=== PATIENT | male | born 1965 | race Two or more races ===

== ENCOUNTER 2022-06-14 09:06 | Emergency (ER) | payer SELFPAY ==
[2022-06-14 09:09] VITALS: BP 158/75; PULSE 69; RESP 18; TEMP 36; O2SAT 98; BMI 27.3
--- NOTE | 2022-06-14 09:24 | CRLHL7_ITS ---
For Patients: As a result of the 21st Century Cures Act, medical imaging exams and procedure reports are released immediately into your electronic medical record. You may view this report before your referring provider. If you have questions, please contact your health care provider. Indication: Right lower quadrant abdominal pain that radiates of the right side for 2 days, nausea and groin Pain Technique: Volumetric multidetector CT images of the abdomen and pelvis were obtained after the administration of intravenous contrast. 93 cc Isovue 370 low osmolar intravenous contrast Comparison: None available. Findings: The lung bases are clear. The liver is enlarged with moderate hepatic steatosis and hepatomegaly. The portal vein is patent. The gallbladder is unremarkable without evidence of radiopaque calculus. There is no significant common biliary ductal dilatation or abrupt cut off. The spleen is normal in enhancement and size. There is moderate thickening of the gastric antrum thickening of the gastric rugal folds. The pancreas is normal in enhancement without significant atrophy. The adrenal glands are unremarkable. The kidneys demonstrate preserved corticomedullary differentiation without evidence of obstructive uropathy. There is moderate stool seen throughout the colon with distal colonic diverticulosis without definite evidence of diverticulitis. Minimal nonspecific fluid is seen within the central small bowel which may be physiologic. Mild enteritis is not excluded. The appendix is unremarkable. There is no significant mesenteric, retroperitoneal, or pelvic sidewall lymph nodes. The aorta is nonaneurysmal. There is no significant atherosclerotic disease appreciated. There are small bilateral hydroceles appreciated within the testicles. The inguinal soft tissues are otherwise grossly within normal limits. There is no free fluid or free air. The anterior abdominal wall is intact without significant hernias. The lumbar vertebral body heights are grossly maintained with minimal endplate Schmorl`s defects. There is mild degenerative disc disease and facet arthrosis. Impression: Normal appendix. Grossly unremarkable right groin. Demonstration of small bilateral hydroceles within the scrotum. Moderate hepatomegaly and hepatic steatosis. [id number] chronic gastritis change. Minimal nonspecific fluid seen within the central small bowel which may represent physiologic changes; however, enteritis is difficult to exclude. Otherwise, no acute intra-abdominal abnormalities are appreciated. Please note that all CT scans at this facility use dose modulation, iterative reconstruction, and/or weight-based dosing when appropriate to reduce radiation dose to as low as reasonably achievable. Dictated by Isaac Weiss MD @ 06/14/2022 10:58:01 AM (Electronically Signed)
--- NOTE | 2022-06-14 09:26 | ED.ABDPAIN ---
HPI - Abdominal Pain General Chief Complaint: Abdominal Pain Stated Complaint: R Abdominal Pain Time Seen by Provider: 06/14/22 09:14 History of Present Illness HPI narrative: Pt is a 56 year old gentleman seen with the assistance of the Bulgarian interpretor who presents with 3 day of right sided abd pain. He has had no nausea or vomiting. No fever or chills. Pt pain has been severe and fairly constant. Pt has had no fever or chills. Pt states that all of the bumps driving in today were painful. Pt has no similar symptoms previously. Pt has otherwise been in good health. Related Data Home Medications Medication Instructions Recorded Confirmed No Known Home Medications 06/14/22 06/14/22 Allergies Allergy/AdvReac Type Severity Reaction Status Date / Time No Known Drug Allergies Allergy Verified 06/14/22 10:23 Review of Systems Status of ROS Reports: 10 or more systems reviewed and unremarkable except as noted in History and below PFSH PFSH Social History Smoking Status: Former smoker How often do you have a drink containing alcohol: never AUDIT-C Alcohol total score: 0 Non-prescribed substance use: denies use Exam Narrative: Exam Narrative: EXAM GENERAL: Patient appears comfortable. EYES: No scleral icterus. THYROID: no thyroid nodules or thyromegaly. LYMPH: No supraclavicular or cervical lymphadenopathy. SKIN: Visible skin seen during exam normal or with benign process only. EXT: No dependent lower extremity pedal edema. HEART: Regular rate and rhythm with no murmurs, rubs, or gallops. LUNGS: Clear to auscultation bilaterally with no crackles or wheezes. ABD: Diffusely tender with guarding in the r side of his abd with hypoactive bowel sounds Brief testicular exam normal. PSYCH: Good eye contact, speech is not pressured. Const: Vital Signs, click to edit/add: Vital Signs - 24 hr 06/14/22 09:09 06/14/22 10:30 Temperature 96.8 F L Pulse Rate [Right Pulse Oximeter] 69 61 Respiratory Rate 18 16 Blood Pressure [Ri ght Upper Arm] 158/75 H 140/86 H Pulse Oximetry 98 98 Oxygen Delivery Me thod Room Air Course Course Hospital Course: Pt seen and examined. CT of abd and pelvis, cbc, cmp, ua, amylase ordered Reevaluation(s) Reevaluation #1: Pt labs are unremarkable with the exception of a glucose of 299, AST of 37, ALT of 51. Amylase is 92. CT shows no acute findings other than possible enteritis with chronic steatosis of the liver and gastritis. Possible hydroceles noted. US of scrotum ordered. Time: 11:28 Reevaluation #2: US of scrotum shows no acute scrotal pathology. Chronic appearing hydroceles noted. Time: 13:55 Vital Signs Vital signs: Initial Vital Signs Temperature 96.8 F L 06/14/22 09:09 Temperature Source Temporal Artery Scan 06/14/22 09:09 Pulse Rate 69 06/14/22 09:09 Respiratory Rate 18 06/14/22 09:09 Blood Pressure 158/75 H 06/14/22 09:09 Blood Pressure Mean 102 06/14/22 09:09 Blood Pressure Position Sitting 06/14/22 09:09 Pulse Oximetry 98 06/14/22 09:09 Oxygen Delivery Method 06/14/22 09:09 Vital Signs Temperature 96.8 F L 06/14/22 09:09 Pulse Rate 69 06/14/22 09:09 Respiratory Rate 18 06/14/22 09:09 Blood Pressure 158/75 H 06/14/22 09:09 Pulse Oximetry 98 06/14/22 09:09 Oxygen Delivery Method 06/14/22 09:09 Temperature 96.8 F L 06/14/22 09:09 Pulse Rate 61 06/14/22 10:30 Respiratory Rate 16 06/14/22 10:30 Blood Pressure 140/86 H 06/14/22 10:30 Pulse Oximetry 98 06/14/22 10:30 Oxygen Delivery Method 06/14/22 09:09 MDM - Abdominal Pain MDM Narrative Medical decision making narrative: Pt is a 56 year old who comes in with abd pain. Pt seen with the aid of the Bulgarian interpretor. Pt's CT upon my review shows findings consistent with enteritis as well as chronic appearing hydroceles. Pt then had us of the scrotum. No acute findings. Chronic appearing hydroceles again noted. Labs reassuring. Will treat as viral syndrome with rest, fluids, tylenol and motrin. Follow up with PCP as needed. Differential Diagnosis Differential diagnosis: Likely abdominal pain, acute appendicitis, calculus of kidney, constipation, diverticulitis, gastroenteritis, pancreatitis and small bowel obstruction Lab Data Labs: Lab Results 06/14/22 06/14/22 06/14/22 Range/Units 09:28 09:50 09:50 WBC 5.53 (4.50-11.00) K/uL RBC 5.29 (4.30-5.90) m/uL Hgb 15.9 (13.5-17.5) gm/dL Hct 45.7 (37.0-53.0) % MCV 86 (80-100) fL MCH 30 (26-34) pg MCHC 35 (32-36) gm/dL RDW Coeff of Yomi 12.7 (11.5-15.5) % Plt Count 194 (140-440) K/uL Neut % (Auto) 54.5 (42.0-72.0) % Lymph % (Auto) 34.5 (20-44) % Eaton % (Auto) 6.1 (0.0-11.0) % Eos % (Auto) 4.5 (0.0-7.0) % Baso % (Auto) 0.2 (0.0-3.0) % Neut # (Auto) 3.01 (1.7-7.0) K/uL Lymph # (Auto) 1.91 (0.90-2.90) K/uL Eaton # (Auto) 0.30 (0.00-0.90) K/UL Eos # (Auto) 0.25 (0.00-0.50) K/uL Baso # (Auto) 0.01 (0.00-0.30) K/uL Sodium 135 (135-149) mmol/L Potassium 4.1 (3.6-5.1) mmol/L Chloride 105 (96-114) mmol/L Carbon Dioxide 21 (20-32) mmol/L BUN 17 (7-30) mg/dL Creatinine 0.6 (0.5-1.5) mg/dL Estimated Creat Clear 141.94 Estimated GFR 113 ml/min Glucose 299 H (60-115) mg/dL Calcium 8.7 (8.4-10.6) mg/dL Total Bilirubin 0.6 (0.1-1.5) mg/dL AST 37 H (12-35) U/L ALT 51 H (4-50) U/L Alkaline Phosphatase 120 (40-150) U/L Total Protein 7.3 (6.0-8.3) g/dL Albumin 4.4 (3.3-5.0) g/dL Amylase 92 H (18-89) U/L Urine Color Yellow (Yellow) Urine Appearance Clear (Clear) Urine pH 7.0 (5.0-8.5) Ur Specific Wilbur 1.020 (1.000-1.030) Urine Protein Negative (Negative) Urine Glucose (UA) 2+ A (Negative) Urine Ketones Negative (Negative) Urine Blood Negative (Negative) Urine Nitrite Negative (Negative) Urine Bilirubin Negative (Negative) Urine Urobilinogen 0.2 (0.2-1.0) Ur Leukocyte Esterase Negative (Negative) SARS-CoV-2 (PCR) (Negative) 06/14/22 Range/Units 10:44 WBC (4.50-11.00) K/uL RBC (4.30-5.90) m/uL Hgb (13.5-17.5) gm/dL Hct (37.0-53.0) % MCV (80-100) fL MCH (26-34) pg MCHC (32-36) gm/dL RDW Coeff of Yomi (11.5-15.5) % Plt Count (140-440) K/uL Neut % (Auto) (42.0-72.0) % Lymph % (Auto) (20-44) % Eaton % (Auto) (0.0-11.0) % Eos % (Auto) (0.0-7.0) % Baso % (Auto) (0.0-3.0) % Neut # (Auto) (1.7-7.0) K/uL Lymph # (Auto) (0.90-2.90) K/uL Eaton # (Auto) (0.00-0.90) K/UL Eos # (Auto) (0.00-0.50) K/uL Baso # (Auto) (0.00-0.30) K/uL Sodium (135-149) mmol/L Potassium (3.6-5.1) mmol/L Chloride (96-114) mmol/L Carbon Dioxide (20-32) mmol/L BUN (7-30) mg/dL Creatinine (0.5-1.5) mg/dL Estimated Creat Clear Estimated GFR ml/min Glucose (60-115) mg/dL Calcium (8.4-10.6) mg/dL Total Bilirubin (0.1-1.5) mg/dL AST (12-35) U/L ALT (4-50) U/L Alkaline Phosphatase (40-150) U/L Total Protein (6.0-8.3) g/dL Albumin (3.3-5.0) g/dL Amylase (18-89) U/L Urine Color (Yellow) Urine Appearance (Clear) Urine pH (5.0-8.5) Ur Specific Wilbur (1.000-1.030) Urine Protein (Negative) Urine Glucose (UA) (Negative) Urine Ketones (Negative) Urine Blood (Negative) Urine Nitrite (Negative) Urine Bilirubin (Negative) Urine Urobilinogen (0.2-1.0) Ur Leukocyte Esterase (Negative) SARS-CoV-2 (PCR) Negative SARS-CoV-2 (Negative) Discharge Plan Discharge Clinical Impression: Enteritis Condition: Stable Instructions: Enteritis (ED) Prescriptions: No Action No Known Home Medications Follow Up/Referrals: Provider,Not a Local [Primary Care Provider] - Stand Alone Forms: [facility] Info Instructions
[2022-06-14 09:40] LABS: Appearance Urine Clear (Clear); Bilirubin Urine Negative (Negative); Blood Urine Negative (Negative); Color Urine Yellow (Yellow); Glucose Urine 2+ (Negative); Ketones Urine Negative (Negative); Leukocyte Esterase Urine Negative (Negative); Nitrite Urine Negative (Negative); Protein Urine Negative (Negative); Urobilinogen Urine 0.2 (0.2-1.0)
[2022-06-14 10:05] LABS: Basophils Absolute Auto 0.01 K/uL (0.00-0.30); Basophils Percent Auto 0.2 % (0.0-3.0); Eosinophils Absolute Auto 0.25 K/uL (0.00-0.50); Eosinophils Percent Auto 4.5 % (0.0-7.0); Hematocrit 45.7 % (37.0-53.0); Hemoglobin* 15.9 gm/dL (13.5-17.5); Immature Granulocytes Abs Auto 0.01 K/uL (0.00-0.30); Immature Granulocytes Pct Auto 0.2 %; Lymphocytes Absolute Auto 1.91 K/uL (0.90-2.90); Lymphocytes Percent Auto 34.5 % (20-44); Mean Corpuscular HGB Conc 35 gm/dL (32-36); Mean Corpuscular Hemoglobin 30 pg (26-34); Mean Corpuscular Volume 86 fL (80-100); Monocytes Percent Auto 6.1 % (0.0-11.0); Neutrophils Absolute Auto 3.01 K/uL (1.7-7.0); Neutrophils Percent Auto 54.5 % (42.0-72.0); Platelet Count* 194 K/uL (140-440); RDW Coefficient of Variation % 12.7 % (11.5-15.5); Red Blood Count 5.29 m/uL (4.30-5.90); White Blood Count* 5.53 K/uL (4.50-11.00)
[2022-06-14 10:10] LABS: Slide Review Reflex No
[2022-06-14 10:30] VITALS: BP 140/86; PULSE 61; RESP 16; O2SAT 98
[2022-06-14 10:34] LABS: Albumin* 4.4 g/dL (3.3-5.0); Chloride* 105 mmol/L (96-114); Potassium* 4.1 mmol/L (3.6-5.1); Sodium* 135 mmol/L (135-149)
[2022-06-14 10:36] LABS: Amylase* 92 U/L (18-89)
[2022-06-14 10:37] LABS: Alanine Aminotransferase* 51 U/L (4-50); Alkaline Phosphatase* 120 U/L (40-150); Aspartate Amino Transferase* 37 U/L (12-35); Bilirubin Total* 0.6 mg/dL (0.1-1.5); Blood Urea Nitrogen* 17 mg/dL (7-30); Carbon Dioxide* 21 mmol/L (20-32); Creatinine* 0.6 mg/dL (0.5-1.5); Est. Creatinine Clearance* 141.94; Estimated Glomerular Filt Rate 113 ml/min; Glucose* 299 mg/dL (60-115); Total Protein* 7.3 g/dL (6.0-8.3)
[2022-06-14 10:38] LABS: Calcium* 8.7 mg/dL (8.4-10.6)
--- NOTE | 2022-06-14 10:51 | ED.NURSE ---
Using ipad staff interpreter, Pt states pain to RLQ fluctuates, is 1/10 now, however does rub abdomen. Has been nauseated, denies nausea now. Last bm this am normal.
[2022-06-14 11:22] LABS: SARS PCR* Negative SARS-CoV-2 (Negative)
--- NOTE | 2022-06-14 11:22 | CRLHL7_ITS ---
For Patients: As a result of the Century Cures Act, medical imaging exams and procedure reports are released immediately into your electronic medical record. You may view this report before your referring provider. If you have questions, please contact your health care provider. Indication: Testicular pain. Technique: Ultrasound of the scrotum and contents. Sonographic guerin-scale images were obtained with spectral and color Doppler waveform and spectral waveform analysis of the testicles. Comparison: None. Findings: Bother testicles are normal in size and echotexture. No masses. No suspicious calcifications. Arterial and venous color Doppler blood flow and spectral waveforms are present in both testicles. Epididymis: Unremarkable bilaterally. Normal blood flow. Other: Moderate-sized bilateral hydroceles. Right-sided scrotal joel present. No sign of varicocele. Scrotal wall is normal. Impression: Moderate hydroceles of uncertain etiology and significance. Remainder of the exam is unremarkable. No sign of torsion or inflammation. Dictated by Ruiz Andrews MD @ 06/14/2022 1:46:20 PM (Electronically Signed)
[2022-06-14 11:30] VITALS: BP 136/91; PULSE 57; RESP 16; O2SAT 98
== END 2022-06-14 14:13 | disposition home or self-care (01) ==
PROVIDERS: Emergency Provider Internal Medicine
DX: K52.9 Noninfective gastroenteritis and colitis, unspecified (principal)
CPT/HCPCS: 36415; 74177; 76870; 80053; 81003; 82150; 85025; 87635; 93976; 99283; 99285; Q9967

== ENCOUNTER 2023-01-23 14:05 | Emergency (ER) | payer SELFPAY ==
[2023-01-23 14:21] VITALS: BP 159/92; PULSE 80; RESP 18; TEMP 35.7; O2SAT 98
--- NOTE | 2023-01-23 14:47 | ED_ITS ---
HPI - General Adult General Time Seen by Provider: 14:47 Date Seen: 01/23/23 Chief complaint: Extremity Pain/Injury, Lower Stated complaint: Infection R leg Time Seen by Provider: 01/23/23 14:31 Source: patient Mode of arrival: ambulatory Limitations: no limitations History of Present Illness HPI narrative: Patient is a very pleasant 57-year-old male who was moving a stove few days ago had a small cut in his right lateral leg and then it has grown and developed into more of an eschar and cellulitic change. He was seen at urgent care and started on Septra. He reports the pain is increased slightly and he presents to the ED for evaluation. He is diabetic, takes insulin. Takes an anxiety medicine as well. He reports he has been active on his leg, but the pain is increased slightly. He has no other swelling of his leg other than over the 50 cent piece area eschar and dollar size area of cellulitis on his right lateral leg. He got his last tetanus last week Related Data Home Medications Medication Instructions Recorded Confirmed anxiety med 01/23/23 insulin 01/23/23 sulfamethoxazole 800 1 tab PO BID 01/23/23 01/23/23 mg-trimethoprim 160 mg tablet Previous Rx's Medication Instructions Recorded levofloxacin 500 mg tablet 500 mg PO DAILY 5 days #5 tabs 01/23/23 Allergies Allergy/AdvReac Type Severity Reaction Status Date / Time cockroach Allergy Unknown Verified 01/23/23 14:31 Review of Systems Status of ROS: Reports: 6 or more systems reviewed and unremarkable except as noted in History and below [facility] Social History Smoking Status: Former smoker How often do you have a drink containing alcohol: never AUDIT-C Alcohol total score: 0 Non-prescribed substance use: denies use Exam Narrative: Exam Narrative: Objective: Vital signs unremarkable and slightly elevated blood pressure Alert or x3 no distress Afebrile Right lateral leg shows a dollar bill sized area of cellulitis with a center piece of a 50 cent piece size area of eschar, the area is mildly tender The lower extremities shows no swelling or edema otherwise. No calf tenderness. Const: Vital Signs, click to edit/add: Vital Signs - 24 hr 01/23/23 14:21 01/23/23 15:12 Temperature 96.2 F L 96.2 F L Pulse Rate [Pulse Oximeter] 80 80 Respiratory Rate 18 18 Blood Pressure [Ri ght Upper Arm] 159/92 H 159/92 H Pulse Oximetry 98 Oxygen Delivery Me thod Room Air Course Vital Signs Vital signs: Initial Vital Signs Temperature 96.2 F L 01/23/23 14:21 Temperature Source Temporal Artery Scan 01/23/23 14:21 Pulse Rate 80 01/23/23 14:21 Respiratory Rate 18 01/23/23 14:21 Blood Pressure 159/92 H 01/23/23 14:21 Blood Pressure Mean 114 H 01/23/23 14:21 Blood Pressure Position Sitting 01/23/23 14:21 Pulse Oximetry 98 01/23/23 14:21 Oxygen Delivery Method Room Air 01/23/23 14:21 Vital Signs Temperature 96.2 F L 01/23/23 14:21 Pulse Rate 80 01/23/23 14:21 Respiratory Rate 18 01/23/23 14:21 Blood Pressure 159/92 H 01/23/23 14:21 Pulse Oximetry 98 01/23/23 14:21 Oxygen Delivery Method Room Air 01/23/23 14:21 Temperature 96.2 F L 01/23/23 15:12 Pulse Rate 80 01/23/23 15:12 Respiratory Rate 18 01/23/23 15:12 Blood Pressure 159/92 H 01/23/23 15:12 Pulse Oximetry 98 01/23/23 14:21 Oxygen Delivery Method Room Air 01/23/23 14:21 Medical Decision Making MDM Narrative Medical decision making narrative: [age] year old male diabetic who through an paraprofessional interpreter reports that he cut his leg initially now as a area of cellulitis and wound. He is scheduled to see the wound clinic on Saturday. He has been on . I will have him continue that. He has also been cutting putting some topical agents on his area of infection I will clean that off will cover it and would have him put no other topical medic amounts on his leg. Will have him finish the as mention and have him take Levaquin now and then Levaquin daily for 5 days, follow-up with wound clinic as mention, return to ED sooner as needed. He should be on light activity as leg as well Discharge Plan Discharge Clinical Impression: Cellulitis of leg Patient Disposition: Home, Self-Care Condition: Stable Instructions: Cellulitis (ED) Additional Instructions: Keep covered for 24 hours then may take off the bandage, cover with a regular bandage that is large if needed. Finish the , will start Levaquin daily, keep your appointment with the wound clinic on Saturday. Limit your use on the leg and recommend elevation Mantega thomas herida cubrida por 24horas. Despues de las 24 horas, puedes quitar thomas vendaje y cubrirla con otra nueva. Termina el antibiotico Sept y empieza el nuevo anitbiotico Levaquin diario. Mantenga thomas patrick con la Wound Clinic, la clinica para heridas el . Reducir thomas uso de la pierna. Le recomendamos elevar thomas pierna cuando puedes. Activity Level: Light activity Discharge Diet: Regular Prescriptions: New levofloxacin 500 mg tablet 500 mg PO DAILY 5 Days Qty: 5 0RF No Action sulfamethoxazole-trimethoprim 800-160 mg tablet 1 tab PO BID insulin anxiety med Follow Up/Referrals: Provider,Not a Local [Referring] - Stand Alone Forms: [facility] Info Instructions
[2023-01-23] MEDS: levoFLOXacin 750 MG TABLET PO (14:52)
[2023-01-23 15:12] VITALS: BP 159/92; PULSE 80; RESP 18; TEMP 35.7
== END 2023-01-23 15:13 | disposition home or self-care (01) ==
LOC: ED 14:47
PROVIDERS: Emergency Provider Family Medicine; PCP Nurse Practitioner Family
DX: L03.115 Cellulitis of right lower limb (principal)
CPT/HCPCS: 99283; A9270

== ENCOUNTER 2023-01-28 13:22 | Outpatient (CLI) | payer SELFPAY | END 2023-01-28 13:23 | disposition home or self-care (01) | LOC: WOUND 13:22 | PROVIDERS: PCP Nurse Practitioner Family; Visit Provider Nurse Practitioner Family | DX: E11.622 Type 2 diabetes mellitus with other skin ulcer (principal); L97.819 Non-pressure chronic ulcer of other part of right lower leg with unspecified severity; Z79.4 Long term (current) use of insulin; Z79.84 Long term (current) use of oral hypoglycemic drugs | CPT/HCPCS: 11042; 99213; T1013 ==

== ENCOUNTER 2023-02-05 13:00 | Outpatient (CLI) | payer OTHER, SELFPAY | END 2023-02-05 13:01 | disposition home or self-care (01) | LOC: WOUND 13:00 | PROVIDERS: PCP Nurse Practitioner Family; Visit Provider Nurse Practitioner Family | DX: E11.622 Type 2 diabetes mellitus with other skin ulcer (principal); L97.812 Non-pressure chronic ulcer of other part of right lower leg with fat layer exposed; Z79.4 Long term (current) use of insulin; Z79.84 Long term (current) use of oral hypoglycemic drugs | CPT/HCPCS: 97597; T1013 ==

== ENCOUNTER 2023-02-12 14:53 | Outpatient (CLI) | payer SELFPAY | END 2023-02-12 14:54 | disposition home or self-care (01) | LOC: WOUND 14:53 | PROVIDERS: PCP Nurse Practitioner Family; Visit Provider Nurse Practitioner Family | DX: E11.622 Type 2 diabetes mellitus with other skin ulcer (principal); L97.812 Non-pressure chronic ulcer of other part of right lower leg with fat layer exposed; Z79.4 Long term (current) use of insulin; Z59.41 Food insecurity | CPT/HCPCS: 11042; T1013 ==

== ENCOUNTER 2023-02-19 14:34 | Outpatient (CLI) | payer SELFPAY | END 2023-02-19 14:35 | disposition home or self-care (01) | LOC: WOUND 14:35 | PROVIDERS: PCP Nurse Practitioner Family; Visit Provider Nurse Practitioner Family | DX: E11.622 Type 2 diabetes mellitus with other skin ulcer (principal); L97.812 Non-pressure chronic ulcer of other part of right lower leg with fat layer exposed; Z79.4 Long term (current) use of insulin | CPT/HCPCS: 97602; 99213 ==

== ENCOUNTER 2023-02-26 11:34 | Outpatient (CLI) | payer SELFPAY | END 2023-02-26 11:35 | disposition home or self-care (01) | LOC: WOUND 11:34 | PROVIDERS: PCP Nurse Practitioner Family; Visit Provider Nurse Practitioner Family | DX: E11.622 Type 2 diabetes mellitus with other skin ulcer (principal); L97.818 Non-pressure chronic ulcer of other part of right lower leg with other specified severity; Z79.4 Long term (current) use of insulin; Z79.84 Long term (current) use of oral hypoglycemic drugs | CPT/HCPCS: 99212 ==

== ENCOUNTER 2023-12-31 11:10 | Emergency (ER) | payer OTHER, SELFPAY ==
[2023-12-31 11:15] VITALS: BP 181/86; PULSE 80; RESP 18; TEMP 36.4; O2SAT 98; BMI 28.7
--- NOTE | 2023-12-31 11:39 | CRLHL7_ITS ---
For Patients: As a result of the Century Cures Act, medical imaging exams and procedure reports are released immediately into your electronic medical record. You may view this report before your referring provider. If you have questions, please contact your health care provider. INDICATION: Right ear/mastoid pain TECHNIQUE: CT temporal bone bilateral internal auditory canals without contrast. Coronal and sagittal reformations were created. COMPARISON: None. FINDINGS: Right temporal bone: Unremarkable external auditory canal and tympanic membrane. Trace opacification of the dependent right mastoid air cells. The right middle ear cavity is clear. Normal appearance of the ossicular chain. No evidence of bony erosion. The fluid containing inner ear structures are unremarkable. No bony dehiscence. Unremarkable appearance of the internal auditory canal and facial canal. Left temporal bone: Unremarkable external auditory canal and tympanic membrane. Trace opacification of the dependent left mastoid air cells. The left middle ear cavity is clear. Normal appearance of the ossicular chain. No evidence of bony erosion. The fluid containing inner ear structures are unremarkable. No bony dehiscence. Unremarkable appearance of the internal auditory canal and facial canal. There is moderate scattered mucosal thickening throughout the visualized bilateral paranasal sinuses. No evident acute abnormality of the visualized brain parenchyma, orbits, or superficial soft tissues. IMPRESSION: 1. No discrete cause for right ear/mastoid pain is identified. There is trace opacification of the dependent right mastoid air cells, likely within physiologic limits. No bony erosion or other findings to suggest otomastoiditis. Unremarkable right periauricular and infratemporal soft tissues. 2. Moderate scattered mucosal thickening in the partially visualized bilateral paranasal sinuses. Please note that all CT scans at this facility use dose modulation, iterative reconstruction, and/or weight-based dosing when appropriate to reduce radiation dose to as low as reasonably achievable. Dictated by Terry Pathak MD @ 12/31/2023 12:35:53 PM (Electronically Signed)
[2023-12-31 12:11] LABS: Creatinine, Point-of-Care* 0.6 mg/dl (0.6-1.3)
--- OUTSIDE RECORDS SUMMARY | 2023-12-31 12:11 | XMS_ITS | Clinical Summary ---
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 Dispense item covered by pt ins. E11.9 NIDDM type II - Test 1 time/day 50 Strip 6 04/15/2017 Active lancetsIndications:U ncontrolled type 2 diabetes mellitus without complication, without long-term current use of insulin He currently has an Accu-chek test kit. Dispense item covered by pt ins. Test 1 per day. E11.9 NIDDM type II - Test 1 time/day 50 Each 6 04/15/2017 Active aspirin (ECOTRIN) 81 mg enteric coated tablet Take 1 tablet by mouth once daily with a meal. 0 08/05/2017 Active durable medical equipment (DME)Indications:Unc ontrolled type 2 diabetes mellitus without complication, without long-term current use of insulin Patient needs a blevins for his lancets to check his glucose. Dispense item covered by pt ins. E11.9 NIDDM type II-Test 1 time/day 100 Each 2 10/24/2017 Active empagliflozin (JARDIANCE) 10 mg tablet Take 1 tablet by mouth once daily. 0 04/12/2020 Active Active Problems Problem Noted Date Diagnosed Date Hyperlipidemia associated with type 2 diabetes m germaine 08/03/2017 [place] speaking patient 04/17/2017 Acute deep vein thrombosis o f distal end of right lower extremity 04/16/2017 Acute deep vein thrombosis ( DVT) of distal vein of right lower extremity 04/15/2017 Anticoagulated on warfarin 04/15/2017 Anxiety state, unspecified 04/20/2008 Overview: Onset date: 2003 Major depressive disorder, recurrent episode, mo derate 04/20/2008 Overview: Onset date: 2003 Headache(784.0) 02/27/2008 Overview: Onset date: 2004 Type II or unspecified type diabetes mellitus without mention of complication, uncontrolled 01/12/2008 Overview: Diabetes Mellitus Poorly Controlled-Onset date: Jan 2008 Resolved Problems Problem Noted Date Diagnosed Date Resolved Date Chronic gingivitis, plaque induced 08/05/2012 12/29/2014 Overview: Gingivitis Candidiasis of other urogenital sites 08/04/2012 12/29/2014 Overview: Candidal Balanitis Orchitis and epididymitis, unspecified 08/04/2012 12/29/2014 Overview: Epididymitis Open wound site NOS 09/11/2011 12/30/19 15 Overview: Open Wound Prepatellar bursitis 01/21/2010 015 Overview: Septic Prepatellar Bursitis Lumbago 02/27/2008 12/29/2014 Overview: Lumbago-S/P Fall-Onset date: 1996 Trigger finger (acquired) 02/26/2008 Overview: Trigger Finger (Acquired)-#4 finger, Left Other specified counseling 01/12/2008 0 12/29/2014 Overview: Patient Education - Infertility Immunizations Name Administration Dates Next Due Influenza Virus, Unspecified 04/19/2008 Influenza, IIV4 04/02/2017 Tdap 04/01/2017,12/28/2014,10/31/2007 Family History Relation Name Status Comments Other 1 Other 2 Other 3 Other 4 Social History Tobacco Use Types Packs/Day Years Used Date Smoking Tobacco: Former Smokeless Tobacco: Never Tobacco Cessation:Counseling Given: Yes Alcohol Use Standard Drinks/Week Comments Never 0 (1 standard drink = 0.6 oz pur e alcohol) Social Connections Answer Date Recorded Frequency of Communication with Friends and Fami ly Not on file 05/13/2021 Financial Resource Strain Answer Date R ecorded Difficulty of Paying Living Expenses Not on file 05/13/2021 Difficulty of Paying Living Expenses Not on file 05/13/2021 Sex and Gender Information Value Date Recorded Sex Assigned at Not on file Gender Identity Not on file Sexual Orientation Not on file Obstetrics History Last Filed Vital Signs Vital Sign Reading Time Taken Comments Blood Pressure 114/74 10/24/2017 8:03 AM CDT Pulse 69 10/24/2017 8:03 AM CDT Temperature 36.2 ??C (97.2 ??F) 04/30/2017 9:57 AM CS T Respiratory Rate 20 08/28/2017 11:2 5 AM CDT Oxygen Saturation 98% 10/24/2017 8:03 AM CDT Inhaled Oxygen Concentration - - Weight 90.6 kg (199 lb 12.8 oz) 10/24/2017 8:03 AM CDT Height 182.9 cm (6') 08/28/2017 9:58 AM CDT Body Mass Index 27.1 08/28/2017 9:58 AM CDT Plan of Treatment Health Maintenance Due Date Last Done Comments Depression screening for age 12+ 1977 HIV for age 15-65 1980 BMI (ht and wt on same day) for age 18+ 1983 Hepatitis C screening for age 18-79 1983 Colonoscopy through age 75 2010 Zoster (shingles) series for age 50+ (1 of 2) 2015 Lipids for age 45-75 08/01/2022 08/01/2017, 02/09/2008 (Completed outside of [facility]) COVID-19 vaccine series (2022- season) 2023 Influenza for age 50-64 01/12/2024 04/02/2017, 04/19 Tetanus booster 04/01/2027 04/01/2017, 12/11, 10/31/2007 Tdap Completed 04/01/2017, 12/11, 10/31/2007 Pneumococcal series for age 6-64 Aged Out No longer eligible based on patient's age to complete this topic Procedures Procedure Name Priority Date/Time Associated Diagnosis Comments LIPID PANEL W REFLEX MEASURED LDL Routine 08/01/2017 11:18 AM CDT Uncontrolled type 2 diabetes mellitus without complication, without long-term current use of insulin (HC) from Last 3 Months or Most Recently Relevant to Health Maintenance Results * (ABNORMAL) LIPID PANEL W REFLEX MEASURED LDL (08/01/2017 11:18 AM CDT) [facility] CHOLESTEROL,TOTAL 138 100 - 199 mg/dL 08/01/2017 12:06 PM [facility] TRIGLYCERIDES 367(H) <150 mg/dL 08/01/2017 12:06 PM [facility] HDL CHOLESTEROL 27(L) >40 mg/dL 8 12:06 PM [facility] CHOL/HDL RATIO 5.11(H) <4.50 08/01/2017 12:06 PM [facility] PATIENT STATUS RANDOM 08/01/2017 12:06 PM [facility] NON-HDL CHOLESTEROL 111 <145 mg/dl 08/01/2017 12:06 PM [facility] LDL CHOLESTEROL 38 <=130 mg/dL 08/01/2017 12:06 PM [facility] Blood BLOOD SPECIMEN / Unknown Venipuncture / Unknown 08/01/2017 11:18 AM CDT 08/01/2017 11:18 AM CDT Taj Flaherty MD CHEMISTRY [facility] [address] [place] [address] [facility] [address] [place] [address], [place] [phone] from Last 3 Months or Most Recently Relevant to Health Maintenance Care Teams Entry Level Accountant Relationship Specialty Start Date End Date Clinic, No Pcp Or . PCP - General 09/12/21
[2023-12-31 12:12] LABS: Basophils Absolute Auto 0.02 K/uL (0.00-0.30); Basophils Percent Auto 0.4 % (0.0-3.0); Eosinophils Absolute Auto 0.32 K/uL (0.00-0.50); Eosinophils Percent Auto 5.8 % (0.0-7.0); Hematocrit 45.6 % (37.0-53.0); Immature Granulocytes Abs Auto 0.03 K/uL (0.00-0.30); Immature Granulocytes Pct Auto 0.5 %; Lymphocytes Absolute Auto 1.69 K/uL (0.90-2.90); Lymphocytes Percent Auto 30.7 % (20-44); Mean Corpuscular HGB Conc 35 gm/dL (32-36); Mean Corpuscular Hemoglobin 30 pg (26-34); Mean Corpuscular Volume 85 fL (80-100); Monocytes Percent Auto 6.7 % (0.0-11.0); Neutrophils Absolute Auto 3.08 K/uL (1.7-7.0); Neutrophils Percent Auto 55.9 % (42.0-72.0); Platelet Count* 162 K/uL (140-440); RDW Coefficient of Variation % 12.2 % (11.5-15.5); Red Blood Count 5.39 m/uL (4.30-5.90); White Blood Count* 5.51 K/uL (4.50-11.00)
[2023-12-31 12:17] LABS: Slide Review Reflex No
--- NOTE | 2023-12-31 12:20 | ED.EAR ---
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 Pain is been going on for the past week. States she initially had pain in his left ear but then he clean it out and then pain moved to his right ear. Currently no pain to his left ear. This either seems to be pain all around the ear and when he pulls on the ear. Is becoming difficult to sleep due to the pain. No other concerns noted at this time. Denies fevers, Cheers, difficulty hearing. Related Data Home Medications ?Medication ?Instructions ?Recorded ?Confirmed insulin regular human 100 unit/mL 25 unit subcut BID 01/18/23 12/31/23 (3 mL) subcutaneous pen (Novolin R FlexPen) Previous Rx's ?Medication ?Instructions ?Recorded amoxicillin 500 mg capsule 500 mg PO QID 7 days #28 caps 12/31/23 ibuprofen 800 mg tablet 800 mg PO Q8H PRN pain #30 tabs 12/31/23 [id number] 3.3 4 drp Otic (ear-right) QID 7 days 12/31/23 mg-3 mg-10 mg-0.5 mg/mL ear #10 mL drops,susp (Cortisporin-TC) Allergies Allergy/AdvReac Type Severity Reaction Status Date / Time cockroach Allergy Unknown Verified 01/23/23 14:31 Review of Systems Status of ROS: Reports: 10 or more systems reviewed and unremarkable except as noted in History and below [facility] Social History Smoking Status: Former smoker Do you use any of these nicotine containing products: None Second hand tobacco smoke exposure: No How often do you have a drink containing alcohol: never AUDIT-C Alcohol total score: 0 Non-prescribed substance use: denies use Exam Narrative: Exam Narrative: Const: Well-nourished, Well-developed, in mild distress Eyes: PERRL, no conjunctival injection, and symmetrical lids HENT: Atraumatic external nose. Moist mucous membranes. Is tenderness noted med exact to palpation right ear. Tenderness noted just behind the ear on the mastoid also. Inflamed and swollen external auditory canal I cannot visualize the this tympanic membrane on the right ear. Normal left ear anatomy Neck: Symmetric, trachea midline, No thyromegaly. Low MSK:Extremities w/o deformity, Normal Active ROM Skin: Warm, Dry. No rashes or lesions. Neuro: Normal Muscle tone, No focal neurological deficits. Psych: Awake, Alert, & Oriented x3. Appropriate mood and affect. Const: Vital Signs, click to edit/add: Vital Signs - 24 hr 12/31/23 11:15 Temperature 97.6 F Pulse Rate [Right Pulse Oximeter] 80 Respiratory Rate 18 Blood Pressure [Ri ght Upper Arm] 181/86 H Pulse Oximetry 98 Oxygen Delivery Me thod Room Air Course Vital Signs Vital signs: Initial Vital Signs Temperature 97.6 F 12/31/23 11:15 Temperature Source Temporal Artery Scan 12/31/23 11:15 Pulse Rate 80 12/31/23 11:15 Respiratory Rate 18 12/31/23 11:15 Blood Pressure 181/86 H 12/31/23 11:15 Blood Pressure Mean 117 H 12/31/23 11:15 Blood Pressure Position Sitting 12/31/23 11:15 Pulse Oximetry 98 12/31/23 11:15 Oxygen Delivery Method Room Air 12/31/23 11:15 Vital Signs Temperature 97.6 F 12/31/23 11:15 Pulse Rate 80 12/31/23 11:15 Respiratory Rate 18 12/31/23 11:15 Blood Pressure 181/86 H 12/31/23 11:15 Pulse Oximetry 98 12/31/23 11:15 Oxygen Delivery Method Room Air 12/31/23 11:15 Temperature 97.6 F 12/31/23 11:15 Pulse Rate 80 12/31/23 11:15 Respiratory Rate 18 12/31/23 11:15 Blood Pressure 181/86 H 12/31/23 11:15 Pulse Oximetry 98 12/31/23 11:15 Oxygen Delivery Method Room Air 12/31/23 11:15 Medical Decision Making [facility] Narrative Medical decision making narrative: The patient is a 58-year-old male presenting for right ear pain. This is most likely otitis externa considering the symptoms but with the right mastoid pain I cannot definitively rule out mastoiditis without a CT scan. While this seems unlikely I do think it is necessary to do CT scan is he is also diabetic. CBC was also ordered and shows no acute abnormalities. Imaging showed no concerning abnormalities and this is most likely an otitis externa. Also treated for otitis media as I cannot view tympanic membrane at all due to the swelling. Medications were chosen based on what is available from the [facility]. Lab Data Labs: Lab Results 12/31/23 Range/Units 12:04 WBC 5.51 (4.50-11.00) K/uL RBC 5.39 (4.30-5.90) m/uL Hgb 16.0 (13.5-17.5) gm/dL Hct 45.6 (37.0-53.0) % MCV 85 (80-100) fL MCH 30 (26-34) pg MCHC 35 (32-36) gm/dL RDW Coeff of Yomi 12.2 (11.5-15.5) % Plt Count 162 (140-440) K/uL Neut % (Auto) 55.9 (42.0-72.0) % Lymph % (Auto) 30.7 (20-44) % [place] % (Auto) 6.7 (0.0-11.0) % Eos % (Auto) 5.8 (0.0-7.0) % Baso % (Auto) 0.4 (0.0-3.0) % Neut # (Auto) 3.08 (1.7-7.0) K/uL Lymph # (Auto) 1.69 (0.90-2.90) K/uL [place] # (Auto) 0.40 (0.00-0.90) K/UL Eos # (Auto) 0.32 (0.00-0.50) K/uL Baso # (Auto) 0.02 (0.00-0.30) K/uL Abs Immat Gran (auto) 0.03 (0.00-0.30) K/uL Imm/Tot Granulo (auto) 0.5 % POC Creatinine 0.6 (0.6-1.3) mg/dl Imaging Data CT scan temporal bone bilateral IAC: Attestation: I have reviewed the pertinent imaging results. Radiologist's impression: 1. No discrete cause for right ear/mastoid pain is identified. There is trace opacification of the dependent right mastoid air cells, likely within physiologic limits. No bony erosion or other findings to suggest otomastoiditis. Unremarkable right periauricular and infratemporal soft tissues. 2. Moderate scattered mucosal thickening in the partially visualized bilateral paranasal sinuses. Please note that all CT scans at this facility use dose modulation, iterative reconstruction, and/or weight-based dosing when appropriate to reduce radiation dose to as low as reasonably achievable. Dictated by Terry Pathak MD @ 12/31/2023 12:35:53 PM Discharge Plan Discharge Clinical Impression: Otitis externa Qualifiers: Otitis externa type: unspecified type Chronicity: acute Laterality: right Qualified Code(s): H60.501 - Unspecified acute noninfective otitis externa, right ear Otitis media Qualifiers: Otitis media type: unspecified Chronicity: acute Qualified Code(s): H66.90 - Otitis media, unspecified, unspecified ear Patient Disposition: Home, Self-Care Condition: Stable Instructions: How to Use Ear Drops (ED), Ear Infection (ED) Additional Instructions: Use the ear drops and antibiotics as directed. Return to emergency department for new or worsening symptoms. Follow-up with primary care provider if symptoms are persisting longer than a week Prescriptions: New Cortisporin-TC 3.3-3-10-0.5 mg/mL drops,suspension 4 drp Otic (ear-right) QID 7 Days Qty: 10 0RF amoxicillin 500 mg capsule 500 mg PO QID 7 Days Qty: 28 0RF ibuprofen 800 mg tablet 800 mg PO Q8H PRN (Reason: pain) Qty: 30 0RF No Action Novolin R FlexPen 100 unit/mL (3 mL) insulin pen 25 unit subcut BID Follow Up/Referrals: Sapna Tesfaye [Primary Care Provider] - Stand Alone Forms: MyHealth Info Instructions
== END 2023-12-31 13:05 | disposition home or self-care (01) ==
PROVIDERS: Emergency Provider Student in an Organized Health Care Education/Training Program; PCP Nurse Practitioner Family
DX: H60.501 Unspecified acute noninfective otitis externa, right ear (principal); H66.91 Otitis media, unspecified, right ear
CPT/HCPCS: 36415; 70480; 82565; 85025; 99282; 99284; T1013

== ENCOUNTER 2024-07-17 13:58 | Emergency (ER) | payer OTHER, SELFPAY ==
--- OUTSIDE RECORDS SUMMARY | 2024-07-17 14:01 | XMS_ITS | Data Portability ---
Author Organization [facility] OFF[facility] Address [address] [place] [address] [place] [address] Assessment Encounter Date Assessment Date Assessment LastModified by Organization Details LastModified Time 01/29/2024 01/29/2024 - refills of Albuterol, Glipizide, Lisinopril, and insulin (with increased dosing) [email or web address] Not available 01/29/2024 11:38:44 Plan of Treatment Reminders Order Date Submit Date Provider Last Modified By Organization Details Last Modified Time Details Appointments Any 30 2024 09:30A Alex Mcclure MD Not available Not available Not available Lab HbA1c (hemoglob in A1c), blood 2023 024 [facility], [address] [place], [address], 04/27/2024 12:33:22 CMP, serum or plasma 2023 025 [facility], [address] [place], [address], 05/30/2024 15:27:45 fecal occult blood, stool 2022 023 [facility], [address] [place] [address] [place], [address], 10/05/2022 12:31:30 CMP, serum or plasma 2021 022 [facility], [address] [place], [place] [address], [address], 06/26/2022 10:37:44 HbA1c (hemoglob in A1c), blood 2021 [facility], [address] [place] [address], [address], 06/26/2022 10:36:13 vitamin D, 25-hydrox y, total, serum 2021 022 [facility], [address] [place], [address], 07/03/2022 10:06:04 TSH + free T4, serum 2021 [facility], [address] [place] [address], [address], 08/20/2022 12:17:53 Referral community health worker referral 2023 024 [email or web address] Not available 01/29/2024 15:06:38 pulmonolo gist referral 2022 023 [email or web address] Not available 03/05/2023 09:46:59 community health worker referral 2022 023 [email or web address] Not available 08/22/2022 15:47:46 diabetic ophthalmo logy referral 2022 023 Not available 08/22/2022 15:53:42 restorati ve dental referral 2021 022 Not available 07/13/2021 20:08:26 Procedures None recorded. Surgeries None recorded. Imaging exercise stress test 2021 022 [email or web address] Not available 11/25/2021 18:33:48 XR, chest, 2 view 2021 022 [email or web address] Not available 11/25/2021 18:33:48 Medication Orders lisinopri l 10 mg tablet 2023 024 [facility], [address] [place] [address], [address], 01/29/2024 12:05:12 tadalafil 5 mg tablet 2023 024 [id number], [address] [place] [address], [id number], 01/29/2024 11:14:49 Humalog KwikPen (U-100) Insulin 100 unit/mL subcutane ous [email or web address] [place] [address], [address], 03/19/2024 17:01:55 albuterol sulfate HFA 90 mcg/actua tion aerosol inhaler [address], [address], 01/29/2024 12:05:08 clotrimaz ole 1 % topical cream [address], [address], 01/29/2024 12:05:28 glipizide ER 10 mg tablet, extended release 24 hr 2023 024 [facility], [address] [place] [address], [address], 01/29/2024 12:05:21 prednison e 20 mg tablet [address], [address], 01/29/2024 10:41:17 Zithromax Z-Aleksandar 250 mg tablet [address], [address], 01/29/2024 10:40:56 albuterol sulfate HFA 90 mcg/actua tion aerosol inhaler [address], [address], 02/28/2023 14:19:12 lisinopri l 10 mg tablet [address], [address], 08/22/2022 14:07:45 glipizide ER 10 mg tablet, extended release 24 hr [address], [address], 08/22/2022 14:07:56 lisinopri l 5 mg tablet [address], [address], 08/21/2022 15:04:35 glipizide 5 mg tablet [address], [address], 08/21/2022 14:59:07 Patient TargetsNo targets recorded. 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 Side effects of medications were explained to patient. Patient was told to stop taking medicine in case developed new side effects. [email or web address] Not available 02/28/2023 12:09:00 Reason for Referral Restorative Dental Referral for Diabetes mellitus Referring Physician: Annel Oconnor [facility] Medicine, Encounter Date: 07/13/2021 Community Health Worker Refe rral for Uncontrolled type 2 diabetes mellitus Referring Physician: Annel Oconnor [facility] Medicine, Encounter Date: 08/21/2022 Diabetic Ophthalmology Refer ral for Uncontrolled type 2 diabetes mellitus Referring Physician: Annel Oconnor [facility] Medicine, Encounter Date: 08/21/2022 Glove Cleaner Referral for A cute exacerbation of chronic obstructive pulmonary disease [facility], Encounter Date: 02/28/2023 Community Health Worker Refe rral for Type 2 diabetes mellitus Referring Physician: Krissy Mcclure [facility] Medicine, Encounter Date: 01/29/2024 Results Created Date Observation Date Name Description Value Unit Range Abnormal Flag Note LastModifiedBy Organization Detail LastModifiedTime 07/10/1907/10/2021 HbA1c (hemo globi n A1c), blood A1C 10.2 Not Available [facility] [address] [place], [address], 07/10/2021 12:26:15 01/14/20 22 01/13/2022 CMP, serum or plasm a creatinine 0.7 Not Available [facility] [address] [place], [address], 01/13/2022 14:10:38 01/14/20 22 01/13/2022 CMP, serum or plasm a ALT 43 Not Available [facility] [address] [place] [address] [place], [address], 01/13/2022 14:10:38 01/14/20 22 01/13/2022 CMP, serum or plasm a total cholesterol 136 Not Available [facility] [address] [place] [address] [place], [address], 01/13/2022 14:10:38 01/14/20 22 01/13/2022 CMP, serum or plasm a triglyceride s 117 Not Available [facility] [address] [place] [address] [place], [address], 01/13/2022 14:10:38 01/14/20 22 01/13/2022 CMP, serum or plasm a HDL 28 low Not Available [facility] [address] [place] [address] [place], [address], 01/13/2022 14:10:38 01/14/20 22 01/13/2022 CMP, serum or plasm a LDL 85 Not Available [facility] [address] [place] [address] [place], [address], 01/13/2022 14:10:38 01/14/20 22 01/13/2022 CMP, serum or plasm a A1C 9.97 high Not Available [facility] [address] [place] [address] [place], [address], 01/13/2022 14:10:38 01/14/20 22 01/13/2022 micro album in, urine micro ratio 10 Not Available [address], [address], 01/15/2022 08:06:20 01/14/20 22 01/13/2022 HbA1c (hemo globi n A1c), blood creatinine 0.7 Not Available [facility] [place], [address], 01/30/2022 23:34:43 01/14/20 22 01/13/2022 HbA1c (hemo globi n A1c), blood ALT 43 Not Available [facility] [address] [place] [address] [place], [address], 01/30/2022 23:34:43 01/14/20 22 01/13/2022 HbA1c (hemo globi n A1c), blood total cholesterol 136 Not Available [facility] [address] [place] [address] [place], [address], 01/30/2022 23:34:43 01/14/20 22 01/13/2022 HbA1c (hemo globi n A1c), blood triglyceride s 117 Not Available [facility] [address] [place] [address] [place], [address], 01/30/2022 23:34:43 01/14/20 22 01/13/2022 HbA1c (hemo globi n A1c), blood HDL 28 low Not Available [facility] [address] [place] [address] [place], [address], 01/30/2022 23:34:43 01/14/20 22 01/13/2022 HbA1c (hemo globi n A1c), blood LDL 85 Not Available [facility] [address] [place] [address] [place], [address], 01/30/2022 23:34:43 01/14/20 22 01/13/2022 HbA1c (hemo globi n A1c), blood A1C 9.97 high Not Available [facility] [address] [place] [address] [place], [address], 01/30/2022 23:34:43 01/14/20 22 01/13/2022 lipid panel , blood creatinine 0.7 Not Available [facility] [address] [place] [address] [place], [address], 01/16/2022 12:42:41 01/14/20 22 01/13/2022 lipid panel , blood ALT 43 Not Available [facility] [place], [address], 01/16/2022 12:42:41 01/14/20 22 01/13/2022 lipid panel , blood total cholesterol 136 Not Available [facility] [place], [address], 01/16/2022 12:42:41 01/14/20 22 01/13/2022 lipid panel , blood triglyceride s 117 Not Available [facility] [address] [place] [address] [place], [address], 01/16/2022 12:42:41 01/14/20 22 01/13/2022 lipid panel , blood HDL 28 low Not Available [facility] [address] [place] [address] Eren CottonibaCE[place], [address], 01/16/2022 12:42:41 01/14/20 22 01/13/2022 lipid panel , blood LDL 85 Not Available [facility] [address] [place] [address] [place], [address], 01/16/2022 12:42:41 01/14/20 22 01/13/2022 lipid panel , blood A1C 9.97 high Not Available [facility] [address] [place] [address] [place], [address], 01/16/2022 12:42:41 06/25/19 23 06/25/2022 CMP, serum or plasm a hemoglobin A1C 10.09 high Not Available [facility] [place], [address], 06/26/2022 10:37:44 06/25/19 23 06/25/2022 CMP, serum or plasm a creatinine 0.7 Not Available [facility] Eren [place] [facility], [address], 06/26/2022 10:37:44 06/25/19 23 06/25/2022 CMP, serum or plasm a ALT 49 Not Available [facility] [place], [address], 06/26/2022 10:37:44 06/25/19 23 06/25/2022 HbA1c (hemo globi n A1c), blood hemoglobin A1C 10.09 high Not Available [facility] [place], [address], 06/25/2022 14:20:37 06/25/19 23 06/25/2022 HbA1c (hemo globi n A1c), blood creatinine 0.7 Not Available [facility] [address] [place] [address] [place], [address], 06/25/2022 14:20:37 06/25/19 23 06/25/2022 HbA1c (hemo globi n A1c), blood ALT 49 Not Available [facility] [address] [place] [address] [place], [address], 06/25/2022 14:20:37 06/25/19 23 06/25/2022 TSH + free T4, serum TSH reflex FT4 3.990 uIU/m L 0.270- 4.200 normal Not Available [facility] [address] [place] [address] [place], [address], 08/20/2022 12:16:47 09/28/19 23 09/27/2022 HbA1c (hemo globi n A1c), blood A1C 10.1 high Not Available [facility] [address] [place] [address] [place], [address], 09/28/2022 12:15:54 04/27/20 24 04/27/2024 HbA1c (hemo globi n A1c), blood A1C 9.1 high Not Available [address], [address], 04/27/2024 12:09:27 05/29/19 25 05/29/2024 CMP, serum or plasm a glucose 181 high Not Available [facility] [address] [place], [address], 05/29/2024 13:43:52 05/29/19 25 05/29/2024 CMP, serum or plasm a eGFR >90 Not Available [facility] [address] [place], [address], 05/29/2024 13:43:52 05/29/19 25 05/29/2024 CMP, serum or plasm a AST 36 Not Available [facility] [address] [place], [address], 05/29/2024 13:43:52 05/29/19 25 05/29/2024 CMP, serum or plasm a ALT 45 Not Available [facility] [address] [place], [address], 05/29/2024 13:43:52 07/10/19 25 07/10/2024 hemog lobin A1c, QN, blood A1C 9.6 high Not Available [facility] [address] [place], [address], 07/10/2024 12:26:56 Result Notes None recorded. Problems Name Problem SNOMED Code Status Onset Date Resolution Date Notes Provider Name and Address Organization Details Recorded Time Type 2 diabetes mellitus 30875789 Active 2021 MARCO PULIDO [address] [place], [address], [place] [employer] 2 14:53:10 Asthma 402545972 Active 2021 ACtually , given smoking history, probably COPD. Needs PFTs-not complete d when ordered MARCO PULIDO [address] [place], [address], [facility] 3 14:50:16 Deep venous thrombos is 626214037 Completed 202102/21/2022 MARCO PULIDO [address] [facility] [place], [address], [facility] 2 14:50:44 Deep venous thrombos is 025563799 Completed 202208/21/2022 Removal Reason: after knee surgery PRISCILLA PULIDO [address] [facility] [place], [address], [facility] 3 14:49:52 Steatosi s of liver 536828455 Active 2022 PRISCILLA PULIDO [address] [facility] [place], [address], [facility] 3 15:09:33 Hyperten sive disorder 99962531 Active 2022 PRISCILLA PULIDO [address] [facility] [place], [address], [facility] 3 15:09:44 Notes:hand and leg surgery Problem Notes None recorded. Medical Equipment None Reported. Allergies Allergen ID Allergen Name Allergen Category Reaction Reaction Severity Criticality Documentation Date Start Date Code Code System Note Provider Name and Address Organization Details Recorded Time 1063 metformin medicatio n nausea Not available Not available 06/27/2021 6809 RxNorm Not Available Not Available Not Available Medications Name Sig Start Date Stop Date Status Note LastModified by Organization Details LastModified Time amoxicill in 500 mg capsule TAKE ONE CAPSULE( 500MG) BY MOUTH FOUR TIMES DAILY FOR 7 DAYS 01/28 completed Not Available Not Available Not Available prednison e 10 mg tablet TAKE FOUR TABLETS BY MOUTH EVERY DAY WITH MEALS FOR 5 DAYS 07/13 completed Not Available Not Available Not Available azithromy leonel 250 mg tablet TAKE 2 TABLETS BY MOUTH TODAY THEN 1 TABLET DAILY FOR 4 DAYS 01/28 completed Not Available Not Available Not Available ibuprofen 800 mg tablet TAKE ONE TABLET(8 00MG) BY MOUTH EVERY 8 HOURS NEEDED FOR PAIN 01/28 completed Not Available Not Available Not Available glipizide ER 10 mg tablet, extended release 24 hr TAKE ONE TABLET BY MOUTH TWICE A DAY active Not Available Not Available No t Available prednison e 20 mg tablet TAKE ONE AND ONE-HALF TABLETS BY MOUTH EVERY DAY 01/28 completed Not Available Not Available Not Available sulfameth oxazole 800 mg-trimet hoprim 160 mg tablet TAKE 1 TABLET BY MOUTH TWICE DAILY FOR 7 DAYS 01/28 completed Not Available Not Available Not Available cephalexi n 500 mg capsule TAKE 1 Capsule BY MOUTH TWICE DAILY FOR 7 DAYS 01/28 completed Not Available Not Available Not Available lisinopri l 10 mg tablet TAKE ONE TABLET BY MOUTH EVERY DAY active Not Available Not Available No t Available lisinopri l 5 mg tablet TAKE ONE TABLET BY MOUTH EVERY DAY 08/21 completed Not Available Not Available Not Available levofloxa leonel 500 mg tablet TAKE 1 TABLET BY MOUTH DAILY FOR 5 DAYS 01/28 completed Not Available Not Available Not Available albuterol sulfate HFA 90 mcg/actua tion aerosol inhaler INHALE 2 PUFFS BY MOUTH EVERY FOUR HOURS active Not Available Not Available No t Available glipizide 5 mg tablet TAKE ONE TABLET BY MOUTH TWICE A DAY BEFORE A MEAL. 08/21 completed Not Available Not Available Not Available neomycin- polymyxin -hydrocor t 3.5 mg-10,000 unit/mL-1 % ear drops,barbara p INSTILL 4 DROPS INTO THE RIGHT EAR EVERY 6 HOURS FOR 7 DAYS active Not Available Not Available No t Available tadalafil 5 mg tablet TAKE 1 TABLET BY MOUTH EVERY DAY active Not Available Not Available No t Available Antifunga l (clotrima zole) 1 % topical cream APPLY TO THE AFFECTED AND SURROUND ING AREAS OF SKIN BY TOPICAL ROUTE 2 TIMES PER DAY IN THE MORNING AND EVENING active Not Available Not Available No t Available Humalog Mix 75-25 KwikPen U-100 insulin 100 unit/mL subcutane ous pen Inject 20 units twice a day by subcutan eous route. 03/19 completed Not Available Not Available Not Available Humalog KwikPen (U-100) Insulin 100 unit/mL subcutane ous Inject 20 units twice a day by subcutan eous route with meal(s). 03/19 completed 20U morning, 30U evening (total of 50U per day) Not Available Not Available Not Available Humulin N NPH Insulin KwikPen 20U Qam, 30U Qpm active 07/08/24 (LRB): [id number] , 02/19/25 x 1 box AM: Lot- [id number] Exp: 02/20/20 x1 5: LSM Lot:[id number] Exp: 02/20/20 x1 LSM Lot: [id number] Exp: x1 boxAs per pt insulin was distribu sunita on 03/23/24 in [facility] office by unknown staff:Nicole t: [id number] Exp: 02/20/20 x1 box Not Available Not Available Not Available albuterol sulf 90 mcg/actua tion breath activated powder inhaler,s ensor Inhale 2 puffs every 4 hours by inhalati on route. 01/28 completed Not Available Not Available Not Available Claritin 10 mg chewable tablet Take by oral route. active Not Available Not Available No t Available Vitals Date Recorded Heart rate Systolic blood pressure Diastolic blood pressure Provider Name and Address Organization Details Last Updated DateTime 07/13/2021 72 /min 141 mm[Hg] 85 mm[Hg] MARCO PULIDO [address] [place], [address], [facility] 07/13/2021 11:32:06 Date Recorded Body weight Body mass index (BMI) Body height Body temperature Heart rate Systolic blood pressure Diastolic blood pressure Provider Name and Address Organization Details Last Updated DateTime 2 30964.8 4 g 28.9 kg/m2 178.82 cm 96.9 [degF] 74 /min 136 mm[Hg] 81 mm[Hg] Sara Parnell [facility] 2 11:57:42 Date Recorded Body height Body mass index (BMI) Body weight Heart rate Systolic blood pressure Diastolic blood pressure Provider Name and Address Organization Details Last Updated DateTime 3 177.8 cm 29.6 kg/m2 60199.1 8 g 77 /min 151 mm[Hg] 85 mm[Hg] PRISCILLA PULIDO [address] [place], [address], [facility] 3 15:05:12 Date Recorded Body height Body mass index (BMI) Body weight Heart rate Respiratory rate Body temperature Oxygen saturation Oxygen saturation in Arterial blood by Pulse oximetry Systolic blood pressure Diastolic blood pressure Provider Name and Address Organization Details Last Updated DateTime 3 177.8 cm 28.4 kg/m2 90012.8 5 g 82 /min 22 /min 97.2 [degF] 98 % 98 % 161 mm[Hg] 95 mm[Hg] Milly Smith [facility] 3 10:54:51 Date Recorded Body height Body mass index (BMI) Body weight Heart rate Oxygen saturation Oxygen saturation in Arterial blood by Pulse oximetry Systolic blood pressure Diastolic blood pressure Provider Name and Address Organization Details Last Updated DateTime 4 177.8 cm 29.1 kg/m2 74458.5 3 g 67 /min 98 % 98 % 140 mm[Hg] 80 mm[Hg] Krissy Mcclure MD [address] [place], [address], [facility] 4 11:29:35 Social History None recorded. Functional Status None recorded. Mental Status None recorded. Family History Nothing Reported. Medical History No medical history recorded. Past Encounters Encounter ID Performer Location Encounter Start Date Encounter Closed Date Diagnosis/Indication Diagnosis SNOMED-CT Code Diagnosis ICD10 Code Diagnosis Note [id number] [facility] [address] [place] [address] 06/27/2021 15:48:32 06/27/2021 16:37:46 Pain in left arm 707980808 M79.602 Provided some mild acupressur e which pt found helpful. Tension-type headache 39 3976400 G44.209 Migraine 40516017 G43.90 9 Type 2 vani betes mellitus without complication 732805728 E11.9 Type 2 vani betes mellitus 97491809 E11.9 Stop emopflufoz in as we cannot get this medication . Discussed risk of hyperglyce marii with temporary prednisone use. Discussed the probable need to initiate NPH. He has been watching diet. Advised close BG monitring. [id number] MARCO PULIDO [facility] [address] [facility] [place] [address] 07/13/2021 10:42:52 07/13/2021 12:13:26 Type 2 diabetes mellitus 01556228 E11.9 Diabetes mellitus 356578 09 E11.21 Cont outstandin g BG record\Eye , dental examIncrea se glipizide to 5mg bid (all to metformin) He was given DM booklet today, reviewed hypoglycem ia and actions to take. Also discussed diet (do not completely avoid all glucose) . He was commended on his progress. Migraine 85066755 G43.90 9 headache now c/w migraine. Prednisone helpful as abortive regimine.G radually taper caffeine intake, increase water intakeREco nsider alt migraine medication prn. Discussed side effects with typical agents. Pain in left arm 9304331 00 M79.602 Sx can be worse with activity and now noting sob up stairs.Str ess testPFTs. Secondary erectile dysfunction 429583307 N52.39 LIkely r/t DM. Can re-evaluat e future visit after DM controlled . Dyspnea on exertion 6084 5006 R06.09 [id number] ANNEL OCONNOR, ANP-[facility] OFFICE [address] [place] [address] 02/22/2022 11:43:17 02/22/2022 14:38:37 Uncontrolled type 2 diabetes mellitus 797358711 E11.65 Does not tolerate metforminO N glipizide; suggested increase to 10mg/5mg. It is unclear whether he will make that change.Unc lear where he is getting empoglifoz in from-he insists he is still on.Discuss ed NPH, but pt is very resistant to insulin therapy--- -we discusssed how injections are often less painful that BG sticksREvi ewed reasons for DM control from QOL perspectiv e as he says he is not afraid of .Offe red CHW referral for diet and exercise strategies . He says he doesn't have time for exercise, nor time for CHW/furthe r diet changes. Occ soda.When asked what he specifical ly would like from his medical care here, he states he just wants medication s renewed. He appreciate s the time and acknowledg es his disinteres t in pursuing other options at this time. Diabetes mellitus 587828 09 E11.9 See above Fatigue 29558601 R53.83 Dyspnea on exertion 6084 5006 R06.09 03/22 update: Staff notified that pt has been unresponsi ve to scheduling attempts for spirometry , so order cancelled. [id number] ANNEL OCONNOR, ANP-[facility] [address] [facility] [place] [address] 08/21/2022 14:02:41 08/21/2022 16:01:13 Chronic obstructive pulmonary disease 38734986 J44.9 Presumed diagnosis . Spirometry to confirm diagnosis. Obtain pulmonary CT results-no results found at [facility] or [facility]. I think pt was confusing his abdominal/ pelvic CTPt does not technicall y meet screening criteria for lung cancer screening as he quit smoking 20 years ago, but could consider based on spirometry results Uncontroll ed type 2 diabetes mellitus 963518556 E11.65 Does not tolerate metforminW e discussed how poorly controlled BG will cont to lead to more health problems and more frequent health problems. He reluctantl y agrees to NPH.+Lengt hy discussion on changing from glipizide 2-5mg pills bid to -10mg ER glipizide bidAdvise initiation of insulin. Start NPH 6 units dailyConsi ash statin future visiy Hypertensive disorder 38 [id number] I10 Increase lisinopril from 5 to 10mg daily Plane wart [id number] B07 .8 Pt wants to proceed with treatment [id number] ANUJ NAVA MD [facility] OFFICE [address] [place] [address] 02/28/2023 10:50:10 02/28/2023 17:28:10 Hypertensive disorder [id number] I10 continue to monitor blood pressure, continue with current medication s Steatosis of liver 1007 K76.0 Type 2 vani betes mellitus [id number] E11.9 continue with current medication sincrease Novoline dose by 2 units if blood glucose is above 200, and wait for 2 days, repeat the process again. If blood glucose goes below 100, cut back 2 units on each inject and repeat the process in 2 days. Acute exac erbation of chronic obstructive pulmonary disease [id number] J44.1 persistent upper respirator y symptoms and hx of COPD/asthm apatient declined to be tested for covid- he reported covid vaccinated if symptoms worsen[place] [id number] [facility] [address] [place] [address] 01/29/2024 10:11:31 01/29/2024 11:39:56 Type 2 diabetes mellitus [id number] E11.9 - increase Humalog per below- A1C and f/u in 3 months- referral back to [facility] Steatosis of liver 1007 K76.0 - likely, given comorbidit ies and elevated LFTs 01/2024- reviewed diet changes, [facility] referral Hypertensive disorder 38 [id number] I10 - continue Lisinopril Acute exac erbation of chronic obstructive pulmonary disease [id number] J44.1 Uncontroll ed type 2 diabetes mellitus [id number] E11.65 Erectile dysfunction 860 235806 F52.21 - trial of Cialis Candidal balanitis 31812 007 B37.42 - history and comorbidit ies c/w balanitis, trial of Clotrimazo le, understand s red flag symptoms Asthma [id number] J45.90 9 Health Concerns Section Related Observation LastModified by Organization Detai ls LastModified Time None Recorded Concern Status LastModified by Organization Details LastModified Time None Recorded Advance Directives Directive None Recorded Payers Encounter Date Sequence Insurance Name Policy Number Policy Raza Covered Member ID Raza Member ID Guarantor Name 07/13/2021 SLIDING FEE SCHEDULE - DISCOUNT 02/22/2022 SLIDING FEE SCHEDULE - DISCOUNT 08/21/2022 SLIDING FEE SCHEDULE - DISCOUNT 02/28/2023 SLIDING FEE SCHEDULE - DISCOUNT 01/29/2024 SLIDING FEE SCHEDULE - DISCOUNT Notes Date Note Type Note Provider Name and Address Organization Details Recorded Time 07/13/2021 text/html Pt presents for follow-up of high A1C, ongoing headaches, left arm pain, and sob. His story is a bit different than last time. Headache is now unilateral w/ photophobia, sensitivity to sound, and associated nausea. 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 With regards to his DM, he has only been taking glipizide daily and if cut of the medication, but has managed to cut out sugar and tortillas, increased chicken and fish and veggies in his diet, He has also reduced fruit. He denies ever having had a dental exam. He is overdue for a DM eye exam. He is not doing foot checks. MARCO PULIDO [address] [facility] [place], [address], [facility] 07/13/2021 12:21:29 02/22/2022 text/html Pt presents for follow-up of labs/DM. He notes that BGs have been running 160-180 before eating; 160 after eating at night. He does not like checking his BG due to pain in his fingers. He tries to eat well, but has had some struggles. Emphasizes that he works a lot and does not prioritize his health. MARCO PULIDO [address] [facility] [place], [address], [facility] 03/22/2022 09:35:32 08/21/2022 text/html Pt presents for follow-up. He was hospitalized d/t enteritis-records not currently available. He said surgery was recommended, but he never had. No current abdominal pain. He continues to have shortness of breath. Occurs with going up stairs. Prior 3ppd smoker 20 years ago. He has had a lung CT in the past and was having sob at that time. Awaiting records. He notes bumps on his feet. He shaves off the rough top. 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 MARCO PULIDO [address] [place], [address], [facility] 08/21/2022 17:00:30 02/28/2023 text/html patient has baseline of asthma hard of breathing and associated with cough for the 1 week, it was associated with fever. Cough lingered and been persistent and will worsen with talking. ANUJ NAVA MD [address] [facility] [place], [address], [facility] 02/28/2023 12:57:48 01/29/2024 text/html Anderson is in with his Irasema for DM2 followup.Recent labs:- A1C 10.8, elevated LFTs, LDL 93 Checks sugars approximately twice/week, 250-300. No known hypoglycemia.Only taking insulin at night because he feels good in the morning.Hasn't been taking Glipizide for awhile, intolerant of Metformin 2/2 GI side effects. Krissy Mcclure MD [facility] [place], [address], [facility] [place] [facility] 01/29/2024 11:41:11
--- OUTSIDE RECORDS SUMMARY | 2024-07-17 14:01 | XMS_ITS | Clinical Summary ---
Author Organization [facility] [facility] Address [address] [place] [address] Care Team Providers Care Retail Department Manager Name Role Phone Clinic, No Pcp Or Primary Care Provider Unavaila ble Allergies No known active allergies Medications * This document contains information received from the source organization and may not represent a complete record from that organization. blood sugar diagnostic (BLOOD GLUCOSE TEST) stripIndication s:Uncontrolled type 2 diabetes mellitus without complication, without long-term current use of insulin He currently has an Accu-chek test kit. Dispense item covered by pt ins. E11.9 NIDDM type II - Test 1 time/day 50 Strip 6 7 Active lancetsIndicati ons:Uncontrolle d type 2 diabetes mellitus without complication, without long-term current use of insulin He currently has an Accu-chek test kit. Dispense item covered by pt ins. Test 1 per day. E11.9 NIDDM type II - Test 1 time/day 50 Each 6 7 Active aspirin (ECOTRIN) 81 mg enteric coated tablet Take 1 tablet by mouth once daily with a meal. 0 8 Active durable medical equipment (DME)Indication s:Uncontrolled type 2 diabetes mellitus without complication, without long-term current use of insulin Patient needs a blevins for his lancets to check his glucose. Dispense item covered by pt ins. E11.9 NIDDM type II-Test 1 time/day 100 Each 2 8 Active empagliflozin (JARDIANCE) 10 mg tablet Take 1 tablet by mouth once daily. 0 0 Active Active Problems Problem Noted Date Diagnosed Date Hyperlipidemia associated with type 2 diabetes m germaine 08/03/2017 Syrian speaking patient 04/17/2017 Acute deep vein thrombosis o f distal end of right lower extremity 04/16/2017 Acute deep vein thrombosis ( DVT) of distal vein of right lower extremity 04/15/2017 Anticoagulated on warfarin 04/15/2017 Anxiety state, unspecified 04/20/2008 Overview (04/03/2017): Onset date: 2003 Major depressive disorder, recurrent episode, mo derate 04/20/2008 Overview (04/03/2017): Onset date: 2003 Headache(784.0) 02/27/2008 Overview (04/03/2017): Onset date: 2004 Type II or unspecified type diabetes mellitus without mention of complication, uncontrolled 01/12/2008 Overview (09/18/2013): Diabetes Mellitus Poorly Controlled-Onset date: Jan 2008 Resolved Problems Problem Noted Date Diagnosed Date Resolved Date Chronic gingivitis, plaque induced 08/05/2012 12/29/2014 Overview (09/18/2013): Gingivitis Candidiasis of other urogenital sites 08/04/2012 12/29/2014 Overview (09/18/2013): Candidal Balanitis Orchitis and epididymitis, unspecified 08/04/2012 12/29/2014 Overview (09/18/2013): Epididymitis Open wound site NOS 09/11/2011 12/30/19 15 Overview (09/18/2013): Open Wound Prepatellar bursitis 01/21/2010 015 Overview (09/18/2013): Septic Prepatellar Bursitis Lumbago 02/27/2008 12/29/2014 Overview (09/18/2013): Lumbago-S/P Fall-Onset date: 1996 Trigger finger (acquired) 02/26/2008 Overview (09/18/2013): Trigger Finger (Acquired)-#4 finger, Left Other specified counseling 01/12/2008 0 12/29/2014 Overview (09/18/2013): Patient Education - Infertility Encounters Date Type Department Care Team Description 07/10/2024 Orders Only [facility] Scanner 1 scan: (1-Ord) [facility], HG A1CD, 07/10/2024 from Last 3 Months Immunizations Name Administration Dates Next Due Influenza [...] Recorded Sex Assigned at Not on file Legal Sex Male 8:41 AM 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 CONTENT PRODUCER Gender Identity Not on file Sexual Orientation Not on file Obstetrics History Last Filed Vital Signs Vital Sign Reading Time Taken Comments Blood Pressure 114/74 10/24/2017 8:03 AM CDT Pulse 69 10/24/2017 8:03 AM CDT Temperature 36.2 C (97.2 F) 04/30/2017 9:57 AM WEB CONTENT PRODUCER Respiratory Rate 20 08/28/2017 11:2 5 AM [...] 18-79 1983 Colonoscopy through age 75 2010 Pneumococcal series for age 50+ (1 of 1 - PCV) 2015 Zoster (shingles) series for age 50+ (1 of 2) 2015 Lipids for age 45-75 08/01/2022 08/01/2017, 02/09/2008 [facility] COVID-19 vaccine series (2023- season) 2024 Influenza for age 50-64 01/12/2024 04/02/2017, 04/19 Tetanus booster 04/01/2027 04/01/2017, 12/11, 10/31/2007 Tdap Completed 04/01/2017, 12/11, 10/31/2007 Procedures Procedure Name Priority Date/Time Associated Diagnosis Comments SCAN-LABORATORY REPORT 07/10/2024 12:00 AM WEB CONTENT PRODUCER LIPID PANEL W REFLEX MEASURED LDL Routine 08/01/2017 11:18 AM CDT Uncontrolled type 2 diabetes mellitus without complication, without long-term current use of insulin (HC) from Last 3 Months or Most Recently Relevant to Health Maintenance Results * SCAN-LABORATORY REPORT (07/10/2024 12:00 AM WEB CONTENT PRODUCER) us Scanner OTHER Final Result * (ABNORMAL) LIPID PANEL W REFLEX MEASURED LDL (08/01/2017 11:18 AM CDT) CHOLESTEROL,TOTAL 138 100 - 199 mg/dL 08/01/2017 12:06 PM [facility] TRIGLYCERIDES 367(H) <150 mg/dL 08/01/2017 12:06 PM [facility] HDL CHOLESTEROL 27(L) >40 mg/dL 8 12:06 PM [facility] CHOL/HDL RATIO 5.11(H) <4.50 08/01/2017 12:06 PM [facility] PATIENT STATUS RANDOM 08/01/2017 12:06 PM [facility] NON-HDL CHOLESTEROL 111 <145 mg/dl 08/01/2017 12:06 PM T [facility] LDL CHOLESTEROL 38 <=130 mg/dL 08/01/2017 12:06 PM [facility] Blood BLOOD SPECIMEN / Unknown Venipuncture / Unknown 08/01/2017 11:18 AM CDT 08/01/2017 11:18 AM CDT Taj Flaherty MD CHEMISTRY Final Result [facility] [address] [facility] [address] [facility] [place] [address] [facility] [address] [facility] [address], from Last 3 Months or Most Recently Relevant to Health Maintenance Insurance [phone] [address] [employer] [address] [address] [phone] [address] [phone] [address] [phone] [address] Care Teams Retail Department Manager Relationship Specialty Start Date End Date Clinic, No Pcp Or . PCP - General 09/12/21
[2024-07-17 14:12] VITALS: BP 166/86; PULSE 82; RESP 20; TEMP 36.7; O2SAT 97
--- NOTE | 2024-07-17 15:36 | ED_ITS ---
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 Pt reports he cut his right calf at work with a utility knife 4 days ago. Pt states he did not come to be seen at that time due to his employer discriminating against him and not wanting to cover the medical care. Pt states he has tried to take care of this injury at home with bacitracin and salt water but it is now very painful. Rates pain at 5/10 currently. Pt is diabetic. 59-year-old man presenting to the emergency department with concern of a lacerat ion in the right calf. The cut this with a utility knife 4 days ago at work. Delay in care due to concerns of coverage for healthcare. Has placed in antibiotic ointment and has been washed daily with either salt water or hydrogen peroxide or maybe alcohol. He is concerned in particular that it continues to hurt so much. Throb so much at night he has been unable to sleep. Acetaminophen has not been enough. He estimates that the utility knife went in about half an inch. Underlying history of diabetes and had some difficulty healing in the same leg in the past and is concerned that there might be an infection. Has not been any unusual drainage he reports. Unknown last tetanus. Related Data Allergies Allergy/AdvReac Type Severity Reaction Status Date / Time No Known Drug Allergies Allergy Unverified 01/18/23 15:51 Review of Systems Status of ROS: Reports: 6 or more systems reviewed and unremarkable except as noted in History and below Exam Narrative: Exam Narrative: Very pleasant. Worried. Breathing easily. Skin is warm and dry. Well muscled. Central in the right calf is a laceration about 2 in long though the full dermal aspect is 1 in in length. Subcutaneous tissue is visible centrally. Surrounding this wound is some purpling staining suggestive of gentian kenneth. There was trace drainage on the overlying Telfa pad. I do not see surrounding inflammatory changes. It is tender to palpation. Not particularly swollen either. Const: Vital Signs, click to edit/add: Vital Signs - 24 hr 07/17/24 14:12 Temperature 98.0 F Pulse Rate [Pulse Oximeter] 82 Respiratory Rate 20 Blood Pressure [Ri ght Upper Arm] 166/86 H Pulse Oximetry 97 Oxygen Delivery Me thod Room Air Documenting provider has reviewed patient's vital signs: yes Course Vital Signs Vital signs: Initial Vital Signs Temperature 98.0 F 07/17/24 14:12 Temperature Source Temporal Artery Scan 07/17/24 14:12 Pulse Rate 82 07/17/24 14:12 Respiratory Rate 20 07/17/24 14:12 Blood Pressure 166/86 H 07/17/24 14:12 Blood Pressure Mean 112 H 07/17/24 14:12 Blood Pressure Position Sitting 07/17/24 14:12 Pulse Oximetry 97 07/17/24 14:12 Oxygen Delivery Method Room Air 07/17/24 14:12 Vital Signs Temperature 98.0 F 07/17/24 14:12 Pulse Rate 82 07/17/24 14:12 Respiratory Rate 20 07/17/24 14:12 Blood Pressure 166/86 H 07/17/24 14:12 Pulse Oximetry 97 07/17/24 14:12 Oxygen Delivery Method Room Air 07/17/24 14:12 Temperature 98.0 F 07/17/24 14:12 Pulse Rate 82 07/17/24 14:12 Respiratory Rate 20 07/17/24 14:12 Blood Pressure 166/86 H 07/17/24 14:12 Pulse Oximetry 97 07/17/24 14:12 Oxygen Delivery Method Room Air 07/17/24 14:12 Medical Decision Making MDM Narrative Medical decision making narrative: Given pressures in the lower leg I think this is going to have a hard time healing in this area and due to his continued work without repair. He does express understandable concerns regarding lack of healthcare coverage. Return to anesthetize with lidocaine with epinephrine. Was particularly anxiety provoking for him recounting prior medical trauma. Did well. Excellent anesthesia achieved. Scrubbed with Shur-Clens solution then irrigated under pressure with normal saline. Cleaned again with Shur-Clens solution. Roughed up further with some sterile gauze achieving bleeding from edges of tissue. Undermined the tissue just a little bit for better approximation. Sutured with combination of horizontal mattress and interrupted sutures both 3 0 and 5 0 Ethilon. Very good wound approximation achieved. Controlled bleeding. Antibiotic ointment and Band-Aid applied To update Tdap See patient discharge plan for further discussion I think you have done a good job of keeping infection away however I think that that may have also made it more difficult heal. At this point I would avoid application of salt water, hydrogen peroxide or alcohol. Prescribing ibuprofen which you can take for pain. If that throbbing pain becomes more intense you also have a prescription of some [place] that you can fill (this is an opiate) If after 2 days you see spreading redness, increasing pain or swelling, purulent drainage, then I would fill the cephalexin prescription and take that. This is an antibiotic. Recommending sutures stay in at least 12 days. Okay to get wet but avoid soaking over that time. Change dressing daily with antibiotic ointment for 6 days. Then go to a dry dressing/Band-aid. Was a pleasure taking care of you. Garo Schroeder Discharge Plan Discharge Clinical Impression: Laceration of calf, Calf pain Patient Disposition: Home, Self-Care Condition: Improved Additional Instructions: I think you have done a good job of keeping infection away however I think that that may have also made it more difficult heal. At this point I would avoid application of salt water, hydrogen peroxide or alcohol. Prescribing ibuprofen which you can take for pain. If that throbbing pain becomes more intense you also have a prescription of some [place] that you can fill (this is an opiate) If after 2 days you see spreading redness, increasing pain or swelling, purulent drainage, then I would fill the cephalexin prescription and take that. This is an antibiotic. Recommending sutures stay in at least 12 days. Okay to get wet but avoid soaking over that time. Change dressing daily with antibiotic ointment for 6 days. Then go to a dry dressing/Band-aid. Was a pleasure taking care of you. Garo Schroeder Creo que has hecho un buen trabajo para mantener alejada la infecci?n, eliseo creo que eso tambi?n puede anh dificultado la curaci?n. En sesar punto, evitar?a la aplicaci?n de agua salada, per?xido de hidr?jigar o alcohol. Te recetar? ibuprofeno, que puedes mukul para el dolor. Si brandyn dolor punzante se vuelve m?s intenso, tambi?n tienes gerard receta de [place] que puedes conseguir (sesar es un opi?manager procurement). Si despu?s de 2 d?as ves que el enrojecimiento se extiende, aumenta el dolor o la hinchaz?n, supuraci?n purulenta, entonces te recetar?a cefalexina y te la mukul?as. Sesar es un antibi?sukhwinder. Recomiendo que las suturas permanezcan al menos 12 d?as. Est? susi que se mojen, eliseo layla que se empapen taya brandyn tiempo. Cambia el vendaje a diario con pato?ento antibi?sukhwinder taya 6 d?as. Luego, kaylynn un vendaje seco o gerard curita. Fue un placer cuidarte. Andrew te bendiga Follow Up/Referrals: Provider,Not a Local [Primary Care Provider] - Stand Alone Forms: [facility] Info Inst[facility]
--- OUTSIDE RECORDS SUMMARY | 2024-07-17 16:03 | XMS_ITS | Clinical Summary ---
Author Organization [facility] Address [address] [place] [address] Care Team Providers Care Executive Business Coach Name Role Phone Clinic, No Pcp Or [...] with type 2 diabetes m germaine 08/03/2017 Portuguese speaking patient 04/17/2017 Acute deep vein thrombosis [...] Department Care Team Description 07/10/2024 Orders Only [facility] Scanner 1 scan: (1-Ord) [facility], HG A1CD, 07/10/2024 from Last 3 Months [...] on file Legal Sex Male 8:41 AM MACADAM RAKER Gender Identity Not on file Sexual Orientation Not on file Obstetrics History Last Filed Vital Signs Vital Sign Reading Time Taken Comments Blood Pressure 114/74 10/24/2017 8:03 AM CDT Pulse 69 10/24/2017 8:03 AM CDT Temperature 36.2 C (97.2 F) 04/30/2017 9:57 AM MACADAM RAKER Respiratory Rate 20 08/28/2017 11:2 5 AM [...] 45-75 08/01/2022 08/01/2017, 02/09/2008 [facility] COVID-19 vaccine series (2023- season) 2024 Influenza for age 50-64 01/12/2024 04/02/2017, 04/19 Tetanus booster 04/01/2027 04/01/2017, 12/11, 10/31/2007 Tdap Completed 04/01/2017, 12/11, 10/31/2007 Procedures Procedure Name Priority Date/Time Associated Diagnosis Comments SCAN-LABORATORY REPORT 07/10/2024 12:00 AM MACADAM RAKER LIPID PANEL W REFLEX MEASURED LDL Routine 08/01/2017 11:18 AM CDT Uncontrolled type 2 diabetes mellitus without complication, without long-term current use of insulin (HC) from Last 3 Months or Most Recently Relevant to Health Maintenance Results * SCAN-LABORATORY REPORT (07/10/2024 12:00 AM MACADAM RAKER) us Scanner OTHER Final Result * (ABNORMAL) LIPID PANEL W REFLEX MEASURED LDL (08/01/2017 11:18 AM CDT) CHOLESTEROL,TOTAL 138 100 - 199 mg/dL 08/01/2017 12:06 PM [facility] TRIGLYCERIDES 367(H) <150 mg/dL 08/01/2017 12:06 PM [facility] HDL CHOLESTEROL 27(L) >40 mg/dL 8 12:06 PM [facility] CHOL/HDL RATIO 5.11(H) <4.50 08/01/2017 12:06 PM [facility] PATIENT STATUS RANDOM 08/01/2017 12:[address] [facility] NON-HDL CHOLESTEROL 111 <145 mg/dl 08/01/2017 12:06 PM T [facility] LDL CHOLESTEROL 38 <=130 mg/dL 08/01/2017 12:06 PM [facility] Blood BLOOD SPECIMEN / Unknown Venipuncture / Unknown 08/01/2017 11:18 AM CDT 08/01/2017 11:18 AM CDT Taj Flaherty MD CHEMISTRY Final Result [facility] [address] [facility] [address] [facility] [address] [facility] [address] [facility] [place] [address], from Last 3 Months or Most Recently Relevant to Health Maintenance Insurance [phone] [address] Personal INS [address] [address] [address] [address] [phone] [address] [phone] [address] Care Teams Executive Business Coach Relationship Specialty Start Date End Date Clinic, No Pcp Or . PCP - General 09/12/21
[2024-07-17] MEDS: TETANUS/DIPHTH/PERTUSSIS 0.5 ML SYRINGE IM (17:11)
== END 2024-07-17 17:19 | disposition home or self-care (01) ==
PROVIDERS: Emergency Provider Family Medicine
DX: S81.811A Laceration without foreign body, right lower leg, initial encounter (principal); W26.0XXA Contact with knife, initial encounter; Z23 Encounter for immunization
CPT/HCPCS: 12001; 90471; 90715; 99283; T1013

== ENCOUNTER 2024-08-13 10:30 | Emergency (ER) | payer OTHER, SELFPAY ==
--- OUTSIDE RECORDS SUMMARY | 2024-08-13 10:33 | XMS_ITS | Clinical Summary ---
Author Organization [facility] Address [address] [place] [id number] Care Team Providers Care Air Reduction Equipment Operator Name Role Phone Clinic, No Pcp Or [...] with type 2 diabetes m germaine 08/03/2017 Pakistani speaking patient 04/17/2017 Acute deep vein thrombosis [...] Department Care Team Description 07/10/2024 Orders Only [facility] Scanner 1 scan: (1-Ord) [facility], HG A1CD, 07/10/2024 from Last 3 Months Immunizations Immunization Administration Dates Next Due Influenza Virus, Unspecified [...] on file Legal Sex Male 8:41 AM 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 CLEANER Gender Identity Not on file Sexual Orientation Not on file Obstetrics History Last Filed Vital Signs Vital Sign Reading Time Taken Comments Blood Pressure 114/74 10/24/2017 8:03 AM CDT Pulse 69 10/24/2017 8:03 AM CDT Temperature 36.2 C (97.2 F) 04/30/2017 9:57 AM PAPER CLEANER Respiratory Rate 20 08/28/2017 11:2 5 AM [...] 45-75 08/01/2022 08/01/2017, 02/09/2008 (Completed outside of [facility]) COVID-19 vaccine series (2023- season) 2024 Influenza Vaccine (#1) 2024 04/02/2017, 2007 Tetanus booster 04/01/2027 04/01/2017, 12/11, 10/31/2007 Tdap Completed 04/01/2017, 12/11, 10/31/2007 Procedures Procedure Name Priority Date/Time Associated Diagnosis Comments SCAN-LABORATORY REPORT 07/10/2024 12:00 AM PAPER CLEANER LIPID PANEL W REFLEX MEASURED LDL Routine 08/01/2017 11:18 AM CDT Uncontrolled type 2 diabetes mellitus without complication, without long-term current use of insulin (HC) from Last 3 Months or Most Recently Relevant to Health Maintenance Results * SCAN-LABORATORY REPORT (07/10/2024 12:00 AM PAPER CLEANER) us Scanner OTHER Final Result * (ABNORMAL) LIPID PANEL W REFLEX MEASURED LDL (08/01/2017 11:18 AM CDT) CHOLESTEROL,TOTAL 138 100 - 199 mg/dL 08/01/2017 12:06 PM [facility] TRIGLYCERIDES 367(H) <150 mg/dL 08/01/2017 12:06 PM [facility] HDL CHOLESTEROL 27(L) >40 mg/dL 8 12:06 PM [facility] CHOL/HDL RATIO 5.11(H) <4.50 08/01/2017 12:06 PM [facility] PATIENT STATUS RANDOM 08/01/2017 12:06 PM [facility] NON-HDL CHOLESTEROL 111 <145 mg/dl 08/01/2017 12:06 PM [facility] LDL CHOLESTEROL 38 <=130 mg/dL 08/01/2017 12:06 PM [facility] Blood BLOOD SPECIMEN / Unknown Venipuncture / Unknown 08/01/2017 11:18 AM CDT 08/01/2017 11:18 AM CDT Taj Flaherty MD CHEMISTRY Final Result [facility] [address] [facility] [address] [place] [address] [facility] [address] [facility] [place] [address], from Last 3 Months or Most Recently Relevant to Health Maintenance Insurance [phone] [address] [employer] [phone] [address] [phone] [address] [phone] [id number] [phone] [address] Care Teams Air Reduction Equipment Operator Relationship Specialty Start Date End Date Clinic, No Pcp Or . PCP - General 09/12/21
--- OUTSIDE RECORDS SUMMARY | 2024-08-13 10:33 | XMS_ITS | Data Portability ---
Author Organization [facility] [place] [facility] OFF[facility] Address [address] [place] [address] [place] [address] Assessment Encounter Date Assessment Date Assessment LastModified by Organization Details LastModified Time 01/29/2024 01/29/2024 - refills of Albuterol, Glipizide, Lisinopril, and insulin (with increased dosing) [email or web address] Not available 01/29/2024 11:38:44 Plan of Treatment Reminders Order Date Submit Date Provider Last Modified By Organization Details Last Modified Time Details Appointments Any 30 2024 09:00A Alex Mcclure MD Not available Not available Not available Lab HbA1c (hemoglob in A1c), blood 2023 024 [facility], [address] [place], [address], 04/27/2024 12:33:22 CMP, serum or plasma 2023 025 [facility], [address] [place], [address], 05/30/2024 15:27:45 fecal occult blood, stool 2022 023 [facility], [address] [place] [address] [place], [address], 10/05/2022 12:31:30 CMP, serum or plasma 2021 022 [facility], [address] [place], [place] [address], [address], 06/26/2022 10:37:44 HbA1c (hemoglob in A1c), blood 2021 [facility], [address] [place] [address], [address], 06/26/2022 10:36:13 vitamin D, 25-hydrox y, total, serum 2021 022 [facility], [address] [place], [address], 07/03/2022 10:06:04 TSH + free T4, serum 2021 [facility], [address] [place] [address], [address], 08/20/2022 12:17:53 Referral community health worker referral 2023 024 [email or web address] Not available 01/29/2024 15:06:38 pulmonolo gist referral 2022 023 [email or web address] Not available 03/05/2023 09:46:59 community health worker referral 2022 023 [email or web address] Not available 08/22/2022 15:47:46 diabetic ophthalmo logy referral 2022 023 [email or web address] Not available 08/22/2022 15:53:42 restorati ve dental referral 2021 022 [email or web address] Not available 07/13/2021 20:08:26 Procedures None recorded. Surgeries None recorded. Imaging exercise stress test 2021 022 [email or web address] Not available 11/25/2021 18:33:48 XR, chest, 2 view 2021 022 [email or web address] Not available 11/25/2021 18:33:48 Medication Orders lisinopri l 10 mg tablet 2023 024 [facility], [address] [place] [address], [address], 01/29/2024 12:05:12 tadalafil 5 mg tablet 2023 024 [id number], [address] [place] [address], [id number], 01/29/2024 11:14:49 Humalog KwikPen (U-100) Insulin 100 unit/mL subcutane ous [email or web address] [place] [address], [address], 03/19/2024 17:01:55 albuterol sulfate HFA 90 mcg/actua tion aerosol inhaler [address], [address], 01/29/2024 12:05:08 clotrimaz ole 1 % topical cream [address], [address], 01/29/2024 12:05:28 glipizide ER 10 mg tablet, extended release 24 hr 2023 024 [facility], [address] [place] [address], [address], 01/29/2024 12:05:21 prednison e 20 mg tablet [address], [address], 01/29/2024 10:41:17 Zithromax Z-Aleksandar 250 mg tablet [address], [address], 01/29/2024 10:40:56 albuterol sulfate HFA 90 mcg/actua tion aerosol inhaler [address], [address], 02/28/2023 14:19:12 lisinopri l 10 mg tablet [address], [address], 08/22/2022 14:07:45 glipizide ER 10 mg tablet, extended release 24 hr [address], [address], 08/22/2022 14:07:56 lisinopri l 5 mg tablet [address], [address], 08/21/2022 15:04:35 glipizide 5 mg tablet [address], [address], 08/21/2022 14:59:07 Patient TargetsNo targets recorded. Patient Instructions Encounter Date Encounter Id Patient Instructions Last Modified By Organization Details Last Modified Time 07/13/2021 [id number] spirometry testing* [email or web address] Not available 11/21/2021 00:57:41 diabetic eye exam* [email or web address] Not available 07/13/2021 20:04:24 02/22/2022 [id number] spirometry testing* - Spirometry to assess for asthma [email or web address] Not available 04/17/2022 11:28:26 08/21/2022 [id number] spirometry testing* [email or web address] Not available 09/17/2022 17:07:54 02/28/2023 [id number] Patient/memory care director was instructed to come back or to go to the hospital if develops worsening of symptoms or feeling ill. (symptoms included fever, nausea, vomiting,sever headache or chest pain)Patient/memory care director verbalized understanding and agreed with management. 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 Side effects of medications were explained to patient. Patient was told to stop taking medicine in case developed new side effects. [email or web address] Not available 02/28/2023 12:09:00 Reason for Referral Restorative Dental Referral for Diabetes mellitus Referring Physician: Annel Oconnor [facility], Encounter Date: 07/13/2021 Community Health Worker Refe rral for Uncontrolled type 2 diabetes mellitus Referring Physician: Annel Oconnor [facility], Encounter Date: 08/21/2022 Diabetic Ophthalmology Refer ral for Uncontrolled type 2 diabetes mellitus Referring Physician: Annel Oconnor [facility], Encounter Date: 08/21/2022 Marketing Information Coordinator Referral for A cute exacerbation of chronic obstructive pulmonary disease Referring Physician: [facility], Internal Medicine, Encounter Date: 02/28/2023 Community Health Worker Refe rral for Type 2 diabetes mellitus Referring Physician: Krissy Mcclure [facility], Encounter Date: 01/29/2024 Results Created Date Observation Date Name Description Value Unit Range Abnormal Flag Note LastModifiedBy Organization Detail LastModifiedTime 07/10/1907/10/2021 HbA1c (hemo globi n A1c), blood A1C 10.2 Not Available [place] [facility] [address] [place], [address], 07/10/2021 12:26:15 01/14/20 22 01/13/2022 CMP, serum or plasm a creatinine 0.7 Not Available [facility] [address] [place], [address], 01/13/2022 14:10:38 01/14/20 22 01/13/2022 CMP, serum or plasm a ALT 43 Not Available [facility] [address] [place] [address] [place], [address], 01/13/2022 14:10:38 01/14/20 22 01/13/2022 CMP, serum or plasm a total cholesterol 136 Not Available [facility] [address] [place] [address] [place], [address], 01/13/2022 14:10:38 01/14/20 22 01/13/2022 CMP, serum or plasm a triglyceride s 117 Not Available [facility] [address] [place] [address] [place], [address], 01/13/2022 14:10:38 01/14/20 22 01/13/2022 CMP, serum or plasm a HDL 28 low Not Available [place] [facility] [address] [place] [address] [place], [address], 01/13/2022 14:10:38 01/14/20 22 01/13/2022 CMP, serum or plasm a LDL 85 Not Available [place] [facility] [address] [place] [address] [place], [address], 01/13/2022 14:10:38 01/14/20 22 01/13/2022 CMP, serum or plasm a A1C 9.97 high Not Available [place] [facility] [address] [place] [address] [place], [address], 01/13/2022 14:10:38 01/14/20 22 01/13/2022 micro album in, urine micro ratio 10 Not Available [address], [address], 01/15/2022 08:06:20 01/14/20 22 01/13/2022 HbA1c (hemo globi n A1c), blood creatinine 0.7 Not Available [facility] [place], [address], 01/30/2022 23:34:43 01/14/20 22 01/13/2022 HbA1c (hemo globi n A1c), blood ALT 43 Not Available [place] [facility] [address] [place] [address] [place], [address], 01/30/2022 23:34:43 01/14/20 22 01/13/2022 HbA1c (hemo globi n A1c), blood total cholesterol 136 Not Available [facility] [address] [place] [address] [place], [address], 01/30/2022 23:34:43 01/14/20 22 01/13/2022 HbA1c (hemo globi n A1c), blood triglyceride s 117 Not Available [facility] [address] [place] [address] [place], [address], 01/30/2022 23:34:43 01/14/20 22 01/13/2022 HbA1c (hemo globi n A1c), blood HDL 28 low Not Available [place] [facility] [address] [place] [address] [place], [address], 01/30/2022 23:34:43 01/14/20 22 01/13/2022 HbA1c (hemo globi n A1c), blood LDL 85 Not Available [place] [facility] [address] [place] [address] [place], [address], 01/30/2022 23:34:43 01/14/20 22 01/13/2022 HbA1c (hemo globi n A1c), blood A1C 9.97 high Not Available [place] [facility] [address] [place] [address] [place], [address], 01/30/2022 23:34:43 01/14/20 22 01/13/2022 lipid panel , blood creatinine 0.7 Not Available [facility] [address] [place] [address] [place], [address], 01/16/2022 12:42:41 01/14/20 22 01/13/2022 lipid panel , blood ALT 43 Not Available [place] [facility] [place], [address], 01/16/2022 12:42:41 01/14/20 22 01/13/2022 lipid panel , blood total cholesterol 136 Not Available [facility] [place], [address], 01/16/2022 12:42:41 01/14/20 22 01/13/2022 lipid panel , blood triglyceride s 117 Not Available [facility] [address] [place] [address] [place], [address], 01/16/2022 12:42:41 01/14/20 22 01/13/2022 lipid panel , blood HDL 28 low Not Available [place] [facility] [address] [place] [address] Beck [place]ibaCE[place], [address], 01/16/2022 12:42:41 01/14/20 22 01/13/2022 lipid panel , blood LDL 85 Not Available [place] [facility] [address] [place] [address] [place], [address], 01/16/2022 12:42:41 01/14/20 22 01/13/2022 lipid panel , blood A1C 9.97 high Not Available [place] [facility] [address] [place] [address] [place], [address], 01/16/2022 12:42:41 06/25/19 23 06/25/2022 CMP, serum or plasm a hemoglobin A1C 10.09 high Not Available [facility] [place], [address], 06/26/2022 10:37:44 06/25/19 23 06/25/2022 CMP, serum or plasm a creatinine 0.7 Not Available [facility] Beck [place] [facility], [address], 06/26/2022 10:37:44 06/25/19 23 06/25/2022 CMP, serum or plasm a ALT 49 Not Available [place] [facility] [place], [address], 06/26/2022 10:37:44 06/25/19 23 06/25/2022 HbA1c (hemo globi n A1c), blood hemoglobin A1C 10.09 high Not Available [facility] [place], [address], 06/25/2022 14:20:37 06/25/19 23 06/25/2022 HbA1c (hemo globi n A1c), blood creatinine 0.7 Not Available [facility] [address] [place] [address] [place], [address], 06/25/2022 14:20:37 06/25/19 23 06/25/2022 HbA1c (hemo globi n A1c), blood ALT 49 Not Available [place] [facility] [address] [place] [address] [place], [address], 06/25/2022 14:20:37 06/25/19 23 06/25/2022 TSH + free T4, serum TSH reflex FT4 3.990 uIU/m L 0.270- 4.200 normal Not Available [place] [facility] [address] [place] [address] [place], [address], 08/20/2022 12:16:47 09/28/19 23 09/27/2022 HbA1c (hemo globi n A1c), blood A1C 10.1 high Not Available [place] [facility] [address] [place] [address] [place], [address], 09/28/2022 12:15:54 04/27/20 24 04/27/2024 HbA1c (hemo globi n A1c), blood A1C 9.1 high Not Available [address], [address], 04/27/2024 12:09:27 05/29/19 25 05/29/2024 CMP, serum or plasm a glucose 181 high Not Available [facility] [address] [place], [address], 05/29/2024 13:43:52 05/29/19 25 05/29/2024 CMP, serum or plasm a eGFR >90 Not Available [facility] [address] [place], [address], 05/29/2024 13:43:52 05/29/19 25 05/29/2024 CMP, serum or plasm a AST 36 Not Available [facility] [address] [place], [address], 05/29/2024 13:43:52 05/29/19 25 05/29/2024 CMP, serum or plasm a ALT 45 Not Available [facility] [address] [place], [address], 05/29/2024 13:43:52 07/10/19 25 07/10/2024 hemog lobin A1c, QN, blood A1C 9.6 high Not Available [facility] [address] [place], [address], 07/10/2024 12:26:56 Result Notes None recorded. Problems Name Problem SNOMED Code Status Onset Date Resolution Date Notes Provider Name and Address Organization Details Recorded Time Type 2 diabetes mellitus 98089111 Active 2021 MARCO PULIDO [address] [place], [address], [place] [employer] 2 14:53:10 Asthma 126055110 Active 2021 ACtually , given smoking history, probably COPD. Needs PFTs-not complete d when ordered MARCO PULIDO [address] [place], [address], [facility] [employer] 3 14:50:16 Deep venous thrombos is 751880077 Completed 202102/21/2022 MARCO PULIDO [address] [facility] [place], [address], [facility] [employer] [facility] 2 14:50:44 Deep venous thrombos is 195735304 Completed 202208/21/2022 Removal Reason: after knee surgery PRISCILLA PULIDO [address] [facility] [place], [address], [facility] 3 14:49:52 Steatosi s of liver 875114972 Active 2022 PRISCILLA PULIDO [address] [facility] [place], [address], [facility] 3 15:09:33 Hyperten sive disorder 23455109 Active 2022 PRISCILLA PULIDO [address] [facility] [place], [address], [facility] 3 15:09:44 Notes:hand and leg surgery Problem [...] Insulin KwikPen 20U Qam, 30U Qpm active 08/03/24 LSM: [id number] 02/19/25 x1 07/08/24 (LRB): [id number] , 02/19/25 x 1 box AM: Lot- [id number] Exp: 02/20/20 25 x1 5: LSM Lot:[id number] Exp: 02/20/20 x1 LSM Lot: [id number] Exp: x1 boxAs per pt insulin was distribu sunita on 03/23/24 in [facility] office by unknown staff:Lo t: [id number] Exp: 02/20/20 x1 box Not Available Not [...] 141 mm[Hg] 85 mm[Hg] MARCO PULIDO [address] [place], [address], [facility] [employer] 07/13/2021 11:32:06 Date Recorded Body weight Body mass index (BMI) Body height Body temperature Heart rate Systolic blood pressure Diastolic blood pressure Provider Name and Address Organization Details Last Updated DateTime 2 00857.8 4 g 28.9 kg/m2 178.82 cm 96.9 [degF] 74 /min 136 mm[Hg] 81 mm[Hg] Sara Parnell [facility] [employer] 2 11:57:42 Date Recorded Body height Body mass index (BMI) Body weight Heart rate Systolic blood pressure Diastolic blood pressure Provider Name and Address Organization Details Last Updated DateTime 3 177.8 cm 29.6 kg/m2 48805.1 8 g 77 /min 151 mm[Hg] 85 mm[Hg] PRISCILLA PULIDO [address] [place], [address] [employer] [facility] 3 15:05:12 Date Recorded Body height Body mass index (BMI) Body weight Heart rate Respiratory rate Body temperature Oxygen saturation Oxygen saturation in Arterial blood by Pulse oximetry Systolic blood pressure Diastolic blood pressure Provider Name and Address Organization Details Last Updated DateTime 3 177.8 cm 28.4 kg/m2 08965.8 5 g 82 /min 22 /min 97.2 [degF] 98 % 98 % 161 mm[Hg] 95 mm[Hg] Milly Smith [facility] [employer] [facility] 3 10:54:51 Date Recorded Body height Body mass index (BMI) Body weight Heart rate Oxygen saturation Oxygen saturation in Arterial blood by Pulse oximetry Systolic blood pressure Diastolic blood pressure Provider Name and Address Organization Details Last Updated DateTime 4 177.8 cm 29.1 kg/m2 97982.5 3 g 67 /min 98 % 98 % 140 mm[Hg] 80 mm[Hg] Krissy Mcclure MD [address] [place], [address] 4 11:29:35 Social History None recorded. Functional Status None recorded. Mental Status None recorded. Family History Nothing Reported. Medical History No medical history recorded. Past Encounters Encounter ID Performer Location Encounter Start Date Encounter Closed Date Diagnosis/Indication Diagnosis SNOMED-CT Code Diagnosis ICD10 Code Diagnosis Note [id number] MARCO PULIDO [place] [facility] [address] [place] [address] 06/27/2021 15:48:32 06/27/2021 16:37:46 Pain in left arm 426197725 M79.602 Provided some mild acupressur e which pt found helpful. Tension-type headache 39 6248089 G44.209 Migraine 11784273 G43.90 9 Type 2 vani betes mellitus without complication 488713886 E11.9 Type 2 vani betes mellitus 08799963 E11.9 Stop emopflufoz in as we cannot get this medication . Discussed risk of hyperglyce marii with temporary prednisone use. Discussed the probable need to initiate NPH. He has been watching diet. Advised close BG monitring. [id number] MARCO PULIDO [facility] [address] [place] [address] 07/13/2021 10:42:52 07/13/2021 12:13:26 Type 2 diabetes mellitus 82061097 E11.9 Diabetes mellitus 695480 09 E11.21 Cont outstandin g BG record\Eye , dental examIncrea se glipizide to 5mg bid (all to metformin) He was given DM booklet today, reviewed hypoglycem ia and actions to take. Also discussed diet (do not completely avoid all glucose) . He was commended on his progress. Migraine 55777341 G43.90 9 headache now c/w migraine. Prednisone helpful as abortive regimine.G radually taper caffeine intake, increase water intakeREco nsider alt migraine medication prn. Discussed side effects with typical agents. Pain in left arm 5067598 00 M79.602 Sx can be worse with activity and now noting sob up stairs.Str ess testPFTs. Secondary erectile dysfunction 501976534 N52.39 LIkely r/t DM. Can re-evaluat e future visit after DM controlled . Dyspnea on exertion 6084 5006 R06.09 [id number] ANNEL OCONNOR, [facility] [address] [place] [address] 02/22/2022 11:43:17 02/22/2022 14:38:37 Uncontrolled type 2 diabetes mellitus 642025925 E11.65 Does not tolerate metforminO N glipizide; [...] other options at this time. Diabetes mellitus 840006 09 E11.9 See above Fatigue 18735616 R53.83 Dyspnea on exertion 6084 5006 R06.09 03/22 update: Staff notified that pt has been unresponsi ve to scheduling attempts for spirometry , so order cancelled. [id number] ANNEL OCONNOR, [facility] [address] [place] [address] 08/21/2022 14:02:41 08/21/2022 16:01:13 Chronic obstructive pulmonary disease 88606911 J44.9 Presumed diagnosis . Spirometry to confirm diagnosis. Obtain pulmonary CT results-no results found at [facility] or [facility]. I think pt was confusing his abdominal/ pelvic CTPt does not technicall y meet screening criteria for lung cancer screening as he quit smoking 20 years ago, but could consider based on spirometry results Uncontroll ed type 2 diabetes mellitus 266879053 E11.65 Does not tolerate metforminW e discussed how poorly controlled BG will cont to lead to more health problems and more frequent health problems. He reluctantl y agrees to NPH.+Lengt hy discussion on changing from glipizide 2-5mg pills bid to -10mg ER glipizide bidAdvise initiation of insulin. Start NPH 6 units dailyConsi ash statin future visiy Hypertensive disorder 38 114987 I10 Increase lisinopril from 5 to 10mg daily Plane wart 885023832 B07 .8 Pt wants to proceed with treatment [id number] ANUJ NAVA MD [facility] [address] [place] [address] 02/28/2023 10:50:10 02/28/2023 17:28:10 Hypertensive disorder 25189064 I10 continue to monitor blood pressure, continue with current medication s Steatosis of liver 1007 K76.0 Type 2 vani betes mellitus 57936505 E11.9 continue with current medication sincrease Novoline dose by 2 units if blood glucose is above 200, and wait for 2 days, repeat the process again. If blood glucose goes below 100, cut back 2 units on each inject and repeat the process in 2 days. Acute exac erbation of chronic obstructive pulmonary disease 968935423 J44.1 persistent upper respirator y symptoms and hx of COPD/asthm apatient declined to be tested for covid- he reported covid vaccinated if symptoms worsen, [place] [id number] Krissy Mcclure MD [facility] [address] [place] [address] 01/29/2024 10:11:31 01/29/2024 11:39:56 Type 2 diabetes mellitus 91574878 E11.9 - increase Humalog per below- A1C and f/u in 3 months- referral back to [facility] Steatosis of liver 1007 K76.0 - likely, given comorbidit ies and elevated LFTs 01/2024- reviewed diet changes, [facility] referral Hypertensive disorder 38 825957 I10 - continue Lisinopril Acute exac erbation of chronic obstructive pulmonary disease 264219190 J44.1 Uncontroll ed type 2 diabetes mellitus 458631578 E11.65 Erectile dysfunction 860 416405 F52.21 - trial of Cialis Candidal balanitis 49037 007 B37.42 - history and comorbidit ies c/w balanitis, trial of Clotrimazo le, understand s red flag symptoms Asthma 680420442 J45.90 9 Health Concerns Section Related Observation [...] 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 With regards to his DM, he [...] not doing foot checks. MARCO PULIDO [address] [place], [address], [facility] [employer] 07/13/2021 12:21:29 02/22/2022 text/html Pt presents for follow-up of labs/DM. He notes that BGs have been running 160-180 before eating; 160 after eating at night. He does not like checking his BG due to pain in his fingers. He tries to eat well, but has had some struggles. Emphasizes that he works a lot and does not prioritize his health. MARCO PULIDO [address] [place], [address], [facility] [employer] 03/22/2022 09:35:32 08/21/2022 text/html Pt presents for [...] clean floors in socks. MARCO PULIDO [address] [place], [address], [facility] [employer] 08/21/2022 17:00:30 02/28/2023 text/html patient has baseline of asthma hard of breathing and associated with cough for the 1 week, it was associated with fever. Cough lingered and been persistent and will worsen with talking. ANUJ NAVA MD [address] [place], [address], [facility] [employer] 02/28/2023 12:57:48 01/29/2024 text/html Anderson is in with his Irasema for DM2 followup.Recent labs:- A1C 10.8, elevated LFTs, LDL 93 Checks sugars approximately twice/week, 250-300. No known hypoglycemia.Only taking insulin at night because he feels good in the morning.Hasn't been taking Glipizide for awhile, intolerant of Metformin 2/2 GI side effects. Krissy Mcclure MD [address] [place], [address], [facility] 01/29/2024 11:41:11
--- OUTSIDE RECORDS SUMMARY | 2024-08-13 10:33 | XMS_ITS | Clinical Summary ---
Author Organization [facility] Address [address] [place] [address] Care Team Providers Care Optical Designer Name Role Phone Needs PcpAngel Primary Care Provider Unav ailable Source Comments You are receiving this document as you are listed as the primary care provider,follow-up provider, or the patient has been referred to you for consultation.This is in compliance with the Medicare and[facility] EHR Incentive Program,which states Providers who transition their patient to another setting of careor provider of care or refers their patient to another provider of care shouldprovide summary care record for each transition of care or referral. [facility] Allergies No known active allergies Medications acetaminophen (TYLENOL) 325 MG tabletIndicatio ns:Pain Take 2 Tabs by mouth 4 times a day. 24 hour limit of acetaminophen (TYLENOL) is 4000mg. Each tablet contains 325mg of acetaminophen. Please be aware of acetaminophen limit when taking other medications that contain acetaminophen. Indications: Pain 100 Tab 7 Active blood glucose (ACCU-CHEK GUIDE) test stripIndication s:Type 2 diabetes mellitus with complication, unspecified shelter insulin use status (HRC) Test blood glucose: Upon awakening, before evening meal and 1-2 hours after start of evening meal. Pharmacy dispense brand based on insurance. 100 Strip 7 Active lancets (ACCU-CHEK FASTCLIX)Indica tions:Type 2 diabetes mellitus with complication, unspecified technician terminal and repeater insulin use status (HRC) Test blood glucose: Upon awakening, before evening meal and 1-2 hours after start of evening meal. 102 Each 7 Active warfarin (COUMADIN) 2.5 MG tablet Take 1 Tab by mouth daily. Adjust dose based on INR result as directed. 15 Tab 7 Active metFORMIN XR (GLUCOPHAGE XR) 500 MG 24 hour release tablet Take 1 Tab by mouth daily with breakfast. Follow schedule outlined by diabetic nurse. 30 Tab 7 Active Misc. DevicesIndicati ons:Uncontrolle d type 2 diabetes mellitus without complication, without long-term current use of insulin Patient needs a blevins for his lancets to check his glucose. Dispense item covered by pt ins. E11.9 NIDDM type II-Test 1 time/day 100 2 8 Active glipiZIDE (GLUCOTROL) 5 MG tabletIndicatio ns:Uncontrolled type 2 diabetes mellitus without complication, without long-term current use of insulin Take 1 tablet by mouth once daily before a meal. 30 2 8 Active atorvastatin (LIPITOR) 10 MG tabletIndicatio ns:Hyperlipidem ia associated with type 2 diabetes mellitus (HRC) Take 1 tablet by mouth once daily. 30 2 8 Active clotrimazole (LOTRIMIN) 1 % creamIndication s:Balanitis Apply topically to affected area(s) 2 times daily. 1 0 8 Active acetaminophen (TYLENOL) 325 MG tabletIndicatio ns:Acute pain of right knee Take 2 tablets by mouth every 6 hours if needed. Max acetaminophen dose: 4000mg in 24 hrs. 60 0 7 Active Misc. DevicesIndicati ons:Uncontrolle d type 2 diabetes mellitus without complication, without long-term current use of insulin He currently has an Accu-chek test kit. Dispense item covered by pt ins. Test 1 per day. E11.9 NIDDM type II - Test 1 time/day 50 6 7 Active blood glucose test stripIndication s:Uncontrolled type 2 diabetes mellitus without complication, without long-term current use of insulin He currently has an Accu-chek test kit. Dispense item covered by pt ins. E11.9 NIDDM type II - Test 1 time/day 50 6 7 Active aspirin EC 81 MG enteric coated tablet Take 1 tablet by mouth once daily with a meal. 0 8 Active Active Problems Problem Noted Date Diagnosed Date Hyperlipidemia associated with type 2 diabetes m ellitus 08/03/2017 Yi speaking patient 04/17/2017 Acute deep vein thrombosis o f distal end of right lower extremity 04/16/2017 Anticoagulated on warfarin 04/15/2017 Acute deep vein thrombosis ( DVT) of distal vein of right lower extremity 04/15/2017 Right leg pain 04/09/2017 DM (diabetes mellitus), type 2 04/09/2017 DVT (deep venous thrombosis) 04/09/2017 Overview (04/25/2017): Right lower extremity Laceration of right quadrice ps muscle, fascia and tendon, initial encounter 04/01/2017 Major depressive disorder, recurrent episode, mo derate 04/20/2008 Overview (03/12/2019): Onset date: 2003 Anxiety state 04/20/2008 Overview (03/12/2019): Onset date: 2004 Headache 02/27/2008 Overview (03/12/2019): Onset date: 2005 Uncontrolled diabetes mellitus 01/12/2008 Overview (03/12/2019): Diabetes Mellitus Poorly Controlled-Onset date: Jan 2008 Resolved Problems Problem Noted Date Diagnosed Date Resolved Date Laceration involving tendon 04/01/2017 04/01/2017 Chronic gingivitis, plaque induced 08/05/2012 12/29/2014 Overview (03/12/2019): Gingivitis Orchitis and epididymitis 08/04/2012 Overview (03/12/2019): Epididymitis Candidiasis of other urogenital sites 08/04/2012 12/29/2014 Overview (03/12/2019): Candidal Balanitis Open wound 09/11/2011 12/29/2014 Overview (03/12/2019): Open Wound Prepatellar bursitis 01/21/2010 015 Overview (03/12/2019): Septic Prepatellar Bursitis Lumbago 02/27/2008 12/29/2014 Overview (03/12/2019): Lumbago-S/P Fall-Onset date: 1996 Trigger finger, acquired 02/26/2008 Overview (03/12/2019): Trigger Finger (Acquired)-#4 finger, Left Other specified counseling 01/12/2008 0 12/29/2014 Overview (03/12/2019): Patient Education - Infertility Immunizations Immunization Administration Dates Next Due Influenza IIV4 (Quadrivalent ) 0.5mL (01817) 04/02/2017,04/02/2017 Influenza, Unspecified Formulation 04/19/2008 Tdap 04/01/2017, 7,12/28/2014,2007 Family History Medical History Relation Name Comments Diabetes, Type II Brother Anesthesia Reaction Negative Family History Relation Name Status Comments Brother Other 1 Other 2 Other 3 Other 4 Social History Tobacco Use Types Packs/Day Years Used Date Smoking Tobacco: Former Smokeless Tobacco: Never Alcohol Use Standard Drinks/Week Comments Not Asked 0 (1 standard drink = 0.6 oz pur e alcohol) Sex and Gender Information Value Date Recorded Sex Assigned at Not on file Legal Sex Male 11:47 AM DISTRICT WILDLIFE MANAGER Gender Identity Not on file Sexual Orientation Not on file Last Filed Vital Signs Vital Sign Reading Time Taken Comments Blood Pressure 114/74 10/24/2017 8:03 AM CDT Pulse 69 10/24/2017 8:03 AM CDT Temperature 36.2 C (97.2 F) 04/30/2017 9:57 AM DISTRICT WILDLIFE MANAGER Respiratory Rate 20 08/28/2017 11:2 5 AM CDT Oxygen Saturation 98% 10/24/2017 8:03 AM CDT Inhaled Oxygen Concentration - - Weight 90.6 kg (199 lb 12.8 oz) 10/24/2017 8:03 AM CDT Height 182.9 cm (6') 08/28/2017 9:58 AM CDT Body Mass Index 27.1 08/28/2017 9:58 AM CDT Plan of Treatment Health Maintenance Due Date Last Done Comments Colon Cancer Screening Plan Due 1965 Diabetes: Eye Exam 1965 Diabetes: Foot Exam 1965 Hep C Screening (Preventive Services) 1965 PSA Screening Discussion 1965 Tuberculosis Screening 1965 HIV Screening (Preventive Services) 1981 Adult Preventive Visit 1983 HepB (1) 1984 Pneumococcal 50+ Yrs (1 of 2 - PCV) 1984 Zoster/Shingles (1 of 2) 2015 Diabetes: HGBA1C 02/01/2018 08/01/2017, 08/2016, 04/02/2017 Diabetes: Urine Microalbumin 04/15/2018 04/15/2017 Diabetes: Creatinine 09/23/2018 09/23/2017, 04/18/2017, 04/09/2017, Additional history exists Diabetes: Lipid Panel 08/01/2022 08/01/2017 , 02/09/2008 (Completed) COVID-19 Vaccine ( season) 2024 Influenza (#1) 2024 04/02/2017, 03/14, 04/19/2008 DTaP/Tdap/Td (5 - Tdap) 04/01/2027 04/01/20 17, 04/01/2017, 12/28/2014, Additional history exists HepA Aged Out No longer eligi ble based on patient's age to complete this topic Hib Aged Out No longer eligi ble based on patient's age to complete this topic IPV (Polio) Aged Out No longer eligi ble based on patient's age to complete this topic MCV4 Aged Out No longer eligi ble based on patient's age to complete this topic Meningococcal B Aged Out No longer el igible based on patient's age to complete this topic Procedures Procedure Name Priority Date/Time Associated Diagnosis Comments BASIC METABOLIC PANEL Routine 09/23/2017 9:29 AM CDT Uncontrolled type 2 diabetes mellitus without complication, without long-term current use of insulin (HRC) LIPID PANEL & DIRECT LDL (IF NEEDED) Routine 08/01/2017 11:18 AM CDT Uncontrolled type 2 diabetes mellitus without complication, without long-term current use of insulin (HRC) HGB A1C,POINT OF CARE Routine 08/01/2017 11:18 AM CDT Uncontrolled type 2 diabetes mellitus without complication, without long-term current use of insulin (HRC) ALBUMIN/CREAT RATIO Routine 04/15/2017 2 :31 PM DISTRICT WILDLIFE MANAGER Uncontrolled type 2 diabetes mellitus without complication, without long-term current use of insulin (HRC) from Last 3 Months or Most Recently Relevant to Health Maintenance Results * (ABNORMAL) Basic Metabolic Panel (09/23/2017 9:29 AM CDT) Sodium 140 135 - 145 mmol/L 09/23/2017 9:57 AM [facility] Potassium 4.1 3.5 - 5.0 mmol/L 09/23/2017 9:57 AM [facility] Chloride 103 98 - 107 mmol/L 09/23/2017 9:57 AM [facility] CO2 25 21 - 31 mmol/L 09/23/2017 9:57 AM [facility] Anion Gap 12 5 - 18 09/23/2017 9:57 AM [facility] Glucose 205(H) 65 - 100 mg/dL 09/23/2017 9:57 AM [facility] Calcium 8.8 8.5 - 10.5 mg/dL 09/23/2017 9:57 AM [facility] BUN 19 8 - 25 mg/dL 09/23/2017 9:57 AM [facility] Creatinine 0.70(L) 0.72 - 1.25 mg/dL 09/23/2017 9:57 AM [facility] BUN/ CREA RATIO 27(H) 10 - 20 09/23/201 8 9:57 AM [facility] GFR, Est If >60 >60 ml/min/1.7 3m2 09/23/2017 9:57 AM [facility] GFR, Estimated >60 >60 ml/min/1.7 3m2 09/23/2017 9:57 AM [facility] Blood specimen (specimen) (BLOOD:) 09/23/2017 9:29 AM CDT 09/23/2017 9:32 AM CDT Narrative Transcriptions Robert Rodriguez MD - 05/20/2019 8:17 PM CSTNotes Recorded by Taj Flaherty MD on 09/28/2017 at 9:49 PM CDTResult noted. No new orders. us Taj Flaherty MD LAB_1 Edited Result - Final [facility] [address] [place] [address] * (ABNORMAL) Lipid Panel and Direct LDL(If Needed) (08/01/2017 11:18 AM CDT) Cholesterol 138 100 - 199 mg/dL 08/01/2017 12:06 PM [facility] Triglycerides 367(H) <150 mg/dL 08/01/2017 12:06 PM [facility] HDL Cholesterol 27(L) >40 mg/dL 8 12:06 PM [facility] Chol/HDL Ratio 5.11(H) <4.50 08/01/2017 12:06 PM [facility] PATIENT STATUS RANDOM 08/01/2017 12:06 PM [facility] Non HDL Chol, Calculated 111 <145 mg/dl 08/01/2017 12:06 PM [facility] LDL Cholesterol 38 <=130 mg/dL 08/01/2017 12:06 PM [facility] Blood specimen (specimen) (BLOOD:) 08/01/2017 11:18 AM CDT 08/01/2017 11:44 AM CDT Narrative Transcriptions Robert Rodriguez MD - 05/20/2019 9:37 PM CSTNotes Recorded by Taj Flaherty MD on 08/01/2017 at 1:22 PM CDTDiscussed relevant results and impact on the plan of care with patient at the time of the encounter. us Taj Flaherty MD LAB_1 Edited Result - Final Performing Organization Address [facility] Co de Phone Number [facility] [address] [address] [facility] [address] [place] [address] * (ABNORMAL) Hgb A1c, Point of Care (08/01/2017 11:18 AM CDT) Hemoglobin A1C 8.4(H) <=6.4 % 08/01/2017 12:06 PM CDT [facility] Blood specimen (specimen) (BLOOD:) 08/01/2017 11:18 AM CDT 08/01/2017 11:44 AM CDT Narrative Transcriptions Robert Rodriguez MD - 05/20/2019 9:37 PM CSTNotes Recorded by Taj Flaherty MD on 08/01/2017 at 1:22 PM CDTDiscussed relevant results and impact on the plan of care with patient at the time of the encounter. Taj Flaherty MD LAB_1 Edited Result - Final Performing Organization Address [facility] Co de Phone Number [facility] [address] [place] [id number] * Microalbumin/Creatinine Ratio (04/15/2017 2:31 PM DISTRICT WILDLIFE MANAGER) ALB URINE RANDOM 17.4 mg/L 04/15/2017 9:14 PM DISTRICT WILDLIFE MANAGER [facility] Creatinine,Ur 2.96 g/L 04/15/2017 9:14 PM DISTRICT WILDLIFE MANAGER [facility] Albumin, Urine, Random 5.9 <30.0 mg/g creat 04/15/2017 9:14 PM DISTRICT WILDLIFE MANAGER [facility] Urine specimen (specimen) (Urine) 04/15/2017 2:31 PM DISTRICT WILDLIFE MANAGER 04/15/2017 6:57 PM DISTRICT WILDLIFE MANAGER Narrative HP CONVERSION - 04/15/2017 9:14 PM DISTRICT WILDLIFE MANAGER If Microalbumin is elevated, consider the following: Elevations seen with incipient nephropathy associated with diabetes mellitus or hypertension. Stress, exercise, hematuria, and urinary tract infection may also produce elevated results. If clinically indicated, confirm with 24 Hour Microalbumin. us Taj Flaherty MD LAB_1 Final Result HP CONVERSION [facility] [address] [place] [address] from Last 3 Months or Most Recently Relevant to Health Maintenance Advance Directives * Full Code (Latest Code Status on File) Date Activated Date Inactivated Comments 04/09/2017 6:57 PM 04/12/2017 5:53 PM * Full Code Date Activated Date Inactivated Comments 04/01/2017 7:32 PM 04/02/2017 11:13 PM Care Teams Optical Designer Relationship Specialty Start Date End Date Needs PcpAngel [address] [place] [phone] PCP - General 08/31/21
[2024-08-13 10:38] VITALS: BP 170/93; PULSE 70; RESP 18; TEMP 36.3; O2SAT 96; BMI 30.7
--- NOTE | 2024-08-13 11:03 | ED.SKABFB ---
HPI - Skin/Abscess/Foreign Bdy General Time Seen by Provider: 11:03 Date Seen: 08/13/24 Chief complaint: Skin/Abscess/Foreign Body Stated complaint: check leg infection Time Seen by Provider: 08/13/24 11:03 Source: patient and RN notes reviewed Mode of arrival: ambulatory Limitations: no limitations History of Present Illness HPI narrative: Anderson is a very pleasant 59-year-old male with history of insulin controlled diabetes who comes to the emergency room for evaluation regarding an open wound on his right calf. Over a month ago Anderson accidentally cut his calf with a steam box hand. He did have to have stitches which remained in for 2 weeks. At the end of that time he was told that he could take his stitches out and he did removed them but 2-3 days later, the wound opened . Since that time it has continued to drain and is really not healing very well. Anderson denies any fever although he states he felt hot yesterday. He is able to ambulate. He was seen recently and placed on amoxicillin for possible cellulitis. He states that the pills bother to stomach as so he he was breaking them off had actually applying the antibiotic directly to the wound. Related Data Home Medications ?Medication ?Instructions ?Recorded ?Confirmed insulin regular human 100 unit/mL 25 unit subcut BID 01/18/23 12/31/23 (3 mL) subcutaneous pen (Novolin R FlexPen) Previous Rx's ?Medication ?Instructions ?Recorded amoxicillin 500 mg capsule 500 mg PO QID 7 days #28 caps 12/31/23 ibuprofen 800 mg tablet 800 mg PO Q8H PRN pain #30 tabs 12/31/23 [id number] 3.5 4 drp Otic (ear-right) Q6H 7 days 12/31/23 mg-10,000 unit/mL-1 % ear #10 mL drops,susp Allergies Allergy/AdvReac Type Severity Reaction Status Date / Time cockroach Allergy Unknown Verified 01/23/23 14:31 Review of Systems Status of ROS: Reports: 6 or more systems reviewed and unremarkable except as noted in History and below [facility] Social History Smoking Status: Former smoker Do you use any of these nicotine containing products: None Second hand tobacco smoke exposure: No How often do you have a drink containing alcohol: never AUDIT-C Alcohol total score: 0 Non-prescribed substance use: denies use service: No Exam Narrative: Exam Narrative: Alert and oriented. Very pleasant gentleman. No acute distress. We do is interviewed with the assistance of video German interpretation. Face symmetrical, mentation normal. Neck is supple. Heart with regular rate and rhythm and lungs are clear. Moving all extremities. Examination of the right calf shows a 3 cm by 1.5 cm open wound on the right calf. This compromises epidermis, dermis as well as subcutaneous tissue. He does have a small okay opening in the fat into the deep tissue but I do not see any underlying structures. Serous fluid is draining from this. There is mild erythema at their wound edges. Otherwise no palpable mass. No significant discomfort with palpation. I do see the remnants of ethylon suture material. I gently pull on 1 and and a remainder of a stitch measuring approximately 2 point 2 cm is removed from the wound itself. Const: Vital Signs, click to edit/add: Vital Signs - 24 hr 08/13/24 10:38 Temperature 97.4 F L Pulse Rate [Pulse Oximeter] 70 Respiratory Rate 18 Blood Pressure [Le ft Upper Arm] 170/93 H Pulse Oximetry 96 Oxygen Delivery Me thod Room Air Documenting provider has reviewed patient's vital signs: yes Course Course ED Course: At this time patient has a in open wound, questionable cellulitis, remnants of suture removed with a history of diabetes. Recommend follow-up with the wound care center as well as initiation of antibiotics. Unfortunately, Anderson does not have insurance at this time but has filled out the paperwork. In addition he does not have any extra money for antibiotics. Nursing staff obtains culture of the drainage from this wound. They have also cleansed the wound and applied iodoform dressing as well as compression stocking per suggestion of our surgeon for consult Dr Burgos. With the assistance of the heel turner (in person), [facility] and wound care center we have come up with a plan for this individual. Vital Signs Vital signs: Initial Vital Signs Temperature 97.4 F L 08/13/24 10:38 Temperature Source Temporal Artery Scan 08/13/24 10:38 Pulse Rate 70 08/13/24 10:38 Pulse Rhythm Regular 08/13/24 10:38 Respiratory Rate 18 08/13/24 10:38 Blood Pressure 170/93 H 08/13/24 10:38 Blood Pressure Mean 118 H 08/13/24 10:38 Blood Pressure Position Sitting 08/13/24 10:38 Pulse Oximetry 96 08/13/24 10:38 Oxygen Delivery Method Room Air 08/13/24 10:38 Vital Signs Temperature 97.4 F L 08/13/24 10:38 Pulse Rate 70 08/13/24 10:38 Respiratory Rate 18 08/13/24 10:38 Blood Pressure 170/93 H 08/13/24 10:38 Pulse Oximetry 96 08/13/24 10:38 Oxygen Delivery Method Room Air 08/13/24 10:38 Temperature 97.4 F L 08/13/24 10:38 Pulse Rate 70 08/13/24 10:38 Respiratory Rate 18 08/13/24 10:38 Blood Pressure 170/93 H 08/13/24 10:38 Pulse Oximetry 96 08/13/24 10:38 Oxygen Delivery Method Room Air 08/13/24 10:38 MDM - Skin/Abscess/Foreign Bdy MDM Narrative Medical decision making narrative: 1. Wound dehiscence - was able to speak to the wound care center and was initially declined secondary to no insurance. I then received a phone call. That they would be able to see Anderson next week. A request for services was filled out by myself. The plan is to have this patient follow-up and get a wound care plan from our wound care clinic. Further follow-up will then be done by [facility] here in [place]. A [facility] physician who is also 1 of our hospitalists knows this patient and will let [facility] really no worse the patient will be coming with the plan from the wound care center. Until that time patient is to use iodoform 1/2 inch gauze daily changes as well as wear a compression stocking which we have provided for him. Patient is aware that this will take time to heal. 2. Cellulitis- this gentleman does not appear to be septic, there is only minimal redness around the wound to be given the fact that it is open and does have some drainage will treat with doxycycline 100 mg p.o. b.i.d. times 10 days. I did fill out [facility] form in order for this gentleman to receive this medication as he states he has no tiwari. 3. Disposition- home at this time. Take medication daily as directed and do daily dressing changes. Wound culture is pending. Return to the emergency room for fever, chills, swelling, increasing redness and as needed. Medical Records Attestation: I reviewed the patient's medical records. Discharge Plan Discharge Clinical Impression: Cellulitis, Dehiscence of laceration wound Patient Disposition: Home, Self-Care Condition: Unchanged Additional Instructions: 1. Change your dressing daily with the dressing provided in the bottle. Put gauze over the entire wound and then put your stocking on. The stocking prevents swelling so that the wound can start healing. 2. Stop amoxicillin -do not put any of the pill in your wound. Instead we will have you take doxycycline as an antibiotic. This is available through [employer] funding and the prescription will go home with you to fill. 3. Expect a phone call from the wound care center at the [facility] so that you can be seen by a specialist who will come up with a plan for healing. You will then take that plan to your appointment at [facility] here in [place]. You will receive a phone call from [employer] where Dr. Mcclure works. 4. Return to the emergency room if you started experiencing fever, increased swelling, a lot of redness or vomiting. 1. Cambie thomas vendaje diariamente con el que viene en el frasco. Coloque gerard gasa sobre toda la herida y luego p?ngase la media. La media/calcetin previene la inflamaci?n para que la herida pueda empezar a cicatrizar. 2. Suspenda la amoxicilina; no aplique ninguna pastilla en la herida. En thomas lugar, le indicaremos que tome doxiciclina caridad antibi?sukhwinder. Desirae medicamento est? disponible gratiz esteban a la financiaci?n de [facility] y la receta se la llevar? a la farmacia. 3. Espere gerard llamada telef?colleen del centro de atenci?n de heridas del [facility] para que un especialista le atienda y le elaborar? un plan de curaci?n. Luego, deber? llevar brandyn plan a thomas patrick en [facility], gerard cl?colleen gratuita aqu? en [place]. Recibir? gerard llamada telef?colleen de [facility], donde trabaja el Dr. Mcclure. 4. Regrese a urgencias si comienza a tener fiebre, aumento de la inflamaci?n, mucho enrojecimiento o v?mitos. Prescriptions: No Action Novolin R FlexPen 100 unit/mL (3 mL) insulin pen 25 unit subcut BID amoxicillin 500 mg capsule 500 mg PO QID 7 Days Qty: 28 0RF ibuprofen 800 mg tablet 800 mg PO Q8H PRN (Reason: pain) Qty: 30 0RF ejptovvu-jeyctibxd-YM 3.5-10,000-1 mg/mL-unit/mL-% drops,suspension 4 drp Otic (ear-right) Q6H 7 Days Qty: 10 0RF Follow Up/Referrals: Sapna Tesfaye [Primary Care Provider] - Stand Alone Forms: MyHealth Info Instructions
--- OUTSIDE RECORDS SUMMARY | 2024-08-13 11:39 | XMS_ITS | Clinical Summary ---
Author Organization [employer] [facility] Address [address] [place] [address] Care Team Providers Care Desk Manager Name Role Phone Clinic, No Pcp [...] with type 2 diabetes m germaine 08/03/2017 Cymraes speaking patient 04/17/2017 Acute deep vein thrombosis [...] Department Care Team Description 07/10/2024 Orders Only [facility] Scanner 1 scan: (1-Ord) [...] on file Legal Sex Male 8:41 AM HEM MARKER Gender Identity Not on file Sexual Orientation Not on file Obstetrics History Last Filed Vital Signs Vital Sign Reading Time Taken Comments Blood Pressure 114/74 10/24/2017 8:03 AM CDT Pulse 69 10/24/2017 8:03 AM CDT Temperature 36.2 C (97.2 F) 04/30/2017 9:57 AM HEM MARKER Respiratory Rate 20 08/28/2017 11:2 5 AM [...] Diagnosis Comments SCAN-LABORATORY REPORT 07/10/2024 12:00 AM HEM MARKER LIPID PANEL W REFLEX MEASURED LDL Routine 08/01/2017 11:18 AM CDT Uncontrolled type 2 diabetes mellitus without complication, without long-term current use of insulin (HC) from Last 3 Months or Most Recently Relevant to Health Maintenance Results * SCAN-LABORATORY REPORT (07/10/2024 12:00 AM HEM MARKER) us Scanner OTHER Final Result * (ABNORMAL) LIPID PANEL W REFLEX MEASURED LDL (08/01/2017 11:18 AM CDT) CHOLESTEROL,TOTAL 138 100 - 199 mg/dL 08/01/2017 12:06 PM [facility] TRIGLYCERIDES 367(H) <150 mg/dL 08/01/2017 12:06 PM [facility] HDL CHOLESTEROL 27(L) >40 mg/dL 8 12:06 PM [facility] CHOL/HDL RATIO 5.11(H) <4.50 08/01/2017 12:06 PM [facility] PATIENT STATUS RANDOM 08/01/2017 12:06 PM [facility] NON-HDL CHOLESTEROL 111 <145 mg/dl 08/01/2017 12:06 PM T [facility] LDL CHOLESTEROL 38 <=130 mg/dL 08/01/2017 12:06 PM [facility] Blood BLOOD SPECIMEN / Unknown Venipuncture / Unknown 08/01/2017 11:18 AM CDT 08/01/2017 11:18 AM CDT Taj Flaherty MD CHEMISTRY Final Result [facility] [address] [facility] [address] [place] [address] [facility] [address] [facility] [place] [address], from Last 3 Months or Most Recently Relevant to Health Maintenance Insurance [phone] [address] [employer] [address] [address] [address] [address] [address] [address] [phone] [address] Care Teams Desk Manager Relationship Specialty Start Date End Date Clinic, No Pcp Or . PCP - General 09/12/21
--- OUTSIDE RECORDS SUMMARY | 2024-08-13 11:39 | XMS_ITS | Clinical Summary ---
Author Organization [facility] Address [address] [place] [address] Care Team Providers Care Internet Manager Name Role Phone Needs PcpAngel Primary Care Provider Unav ailable Source Comments You are receiving this document as you are listed as the primary care provider,follow-up provider, or the patient has been referred to you for consultation.This is in compliance with the Medicare and[facility] EHR Incentive Program,which states Providers who [...] s:Type 2 diabetes mellitus with complication, unspecified prison insulin use status (HRC) Test blood glucose: Upon awakening, before evening meal and 1-2 hours after start of evening meal. Pharmacy dispense brand based on insurance. 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 Gender Identity Not on file Sexual Orientation Not on file Last Filed Vital Signs Vital Sign Reading Time Taken Comments Blood Pressure 114/74 10/24/2017 8:03 AM CDT Pulse 69 10/24/2017 8:03 AM CDT Temperature 36.2 C (97.2 F) 04/30/2017 9:57 AM COMPUTER AIDED DESIGN DRAFTER Respiratory Rate 20 08/28/2017 11:2 5 AM [...] ALBUMIN/CREAT RATIO Routine 04/15/2017 2 :31 PM COMPUTER AIDED DESIGN DRAFTER Uncontrolled type 2 diabetes mellitus without complication, without long-term current use of insulin (HRC) from Last 3 Months or Most Recently Relevant to Health Maintenance Results * (ABNORMAL) Basic Metabolic Panel (09/23/2017 9:29 AM CDT) Sodium 140 135 - 145 mmol/L 09/23/2017 9:57 AM [facility] Potassium 4.1 3.5 - 5.0 mmol/L 09/23/2017 9:57 AM [facility] Chloride 103 98 - 107 mmol/L 09/23/2017 9:57 AM [facility] CO2 25 21 - 31 mmol/L 09/23/2017 9:57 AM [facility] Anion Gap 12 5 - 18 09/23/2017 9:57 AM [facility] Glucose 205(H) 65 - 100 mg/dL 09/23/2017 9:57 AM [facility] Calcium 8.8 8.5 - 10.5 mg/dL 09/23/2017 9:57 AM [facility] BUN 19 8 - 25 mg/dL 09/23/2017 9:57 AM [facility] Creatinine 0.70(L) 0.72 - 1.25 mg/dL 09/23/2017 9:57 AM [facility] BUN/ CREA RATIO 27(H) 10 - 20 09/23/201 8 9:57 AM [facility] GFR, Est If >60 >60 ml/min/1.7 3m2 09/23/2017 9:57 AM [facility] GFR, Estimated >60 >60 ml/min/1.7 3m2 09/23/2017 9:57 AM [facility] Blood specimen (specimen) (BLOOD:) 09/23/2017 9:29 AM CDT 09/23/2017 9:32 AM CDT Narrative Transcriptions Robert Rodriguez MD - 05/20/2019 8:17 PM CSTNotes Recorded by Taj Flaherty MD on 09/28/2017 at 9:49 PM CDTResult noted. No new orders. us Taj Flaherty MD LAB_1 Edited Result - Final [facility] [address] [place] [address] * (ABNORMAL) Lipid Panel and Direct LDL(If Needed) (08/01/2017 11:18 AM CDT) Cholesterol 138 100 - 199 mg/dL 08/01/2017 12:06 PM [facility] Triglycerides 367(H) <150 mg/dL 08/01/2017 12:06 PM [facility] HDL Cholesterol 27(L) >40 mg/dL 8 12:06 PM [facility] Chol/HDL Ratio 5.11(H) <4.50 08/01/2017 12:06 PM [facility] PATIENT STATUS RANDOM 08/01/2017 12:06 PM [facility] Non HDL Chol, Calculated 111 <145 mg/dl 08/01/2017 12:06 PM [facility] LDL Cholesterol 38 <=130 mg/dL 08/01/2017 12:06 PM [facility] Blood specimen (specimen) (BLOOD:) 08/01/2017 [...] Edited Result - Final Performing Organization Address [facility] Co de Phone Number [facility] [address] [address] [facility] [address] [place] [address] * (ABNORMAL) Hgb A1c, Point of Care (08/01/2017 11:18 AM CDT) Hemoglobin A1C 8.4(H) <=6.4 % 08/01/2017 12:06 PM CDT [facility] Blood specimen (specimen) (BLOOD:) 08/01/2017 11:18 AM CDT 08/01/2017 11:44 AM CDT Narrative Transcriptions Robert Rdoriguez MD - 05/20/2019 9:37 PM CSTNotes Recorded by Taj Flaherty MD on 08/01/2017 at 1:22 PM CDTDiscussed relevant results and impact on the plan of care with patient at the time of the encounter. Taj Flaherty MD LAB_1 Edited Result - Final Performing Organization Address [facility] Co de Phone Number [facility] [address] [place] [address] * Microalbumin/Creatinine Ratio (04/15/2017 2:31 PM COMPUTER AIDED DESIGN DRAFTER) ALB URINE RANDOM 17.4 mg/L 04/15/2017 9:14 PM COMPUTER AIDED DESIGN DRAFTER [facility] Creatinine,Ur 2.96 g/L 04/15/2017 9:14 PM COMPUTER AIDED DESIGN DRAFTER [facility] Albumin, Urine, Random 5.9 <30.0 mg/g creat 04/15/2017 9:14 PM COMPUTER AIDED DESIGN DRAFTER [facility] Urine specimen (specimen) (Urine) 04/15/2017 2:31 PM COMPUTER AIDED DESIGN DRAFTER 04/15/2017 6:57 PM COMPUTER AIDED DESIGN DRAFTER Narrative HP CONVERSION - 04/15/2017 9:14 PM COMPUTER AIDED DESIGN DRAFTER If Microalbumin is elevated, consider the following: Elevations seen with incipient nephropathy associated with diabetes mellitus or hypertension. Stress, exercise, hematuria, and urinary tract infection may also produce elevated results. If clinically indicated, confirm with 24 Hour Microalbumin. us Taj Flaherty MD LAB_1 Final Result HP CONVERSION [facility] [address] [place] [address] from Last 3 Months or Most Recently Relevant to Health Maintenance Advance Directives * Full Code (Latest Code Status on File) Date Activated Date Inactivated Comments 04/09/2017 6:57 PM 04/12/2017 5:53 PM * Full Code Date Activated Date Inactivated Comments 04/01/2017 7:32 PM 04/02/2017 11:13 PM Care Teams Internet Manager Relationship Specialty Start Date End Date Needs PcpAngel [address] [place] [phone] PCP - General 08/31/21
== END 2024-08-13 12:15 | disposition home or self-care (01) ==
PROVIDERS: Emergency Provider Family Medicine; PCP Nurse Practitioner Family
DX: L03.115 Cellulitis of right lower limb (principal)
CPT/HCPCS: 87070; 99283; 99284

== ENCOUNTER 2024-08-17 08:07 | Outpatient (CLI) | payer OTHER, SELFPAY | END 2024-08-17 08:08 | disposition home or self-care (01) | PROVIDERS: PCP Nurse Practitioner Family; Visit Provider Surgery | DX: S81.811A Laceration without foreign body, right lower leg, initial encounter (principal); W26.0XXA Contact with knife, initial encounter; E11.628 Type 2 diabetes mellitus with other skin complications; E11.65 Type 2 diabetes mellitus with hyperglycemia; Z79.4 Long term (current) use of insulin; Z91.190 Patient's noncompliance with other medical treatment and regimen due to financial hardship | CPT/HCPCS: 11042; G0463; T1013 ==

== ENCOUNTER 2024-08-31 08:19 | Outpatient (CLI) | payer OTHER, SELFPAY | END 2024-08-31 08:20 | disposition home or self-care (01) | LOC: WOUND 08:20 | PROVIDERS: PCP Nurse Practitioner Family; Visit Provider Nurse Practitioner Family | DX: E11.622 Type 2 diabetes mellitus with other skin ulcer (principal); L97.212 Non-pressure chronic ulcer of right calf with fat layer exposed; Z79.4 Long term (current) use of insulin | CPT/HCPCS: 11042; T1013 ==

== ENCOUNTER 2024-08-31 18:48 | Emergency (ER) | payer OTHER, SELFPAY ==
--- OUTSIDE RECORDS SUMMARY | 2024-08-31 18:50 | XMS_ITS | Clinical Summary ---
Author Organization [facility] Address [address] [place] [address] Care Team Providers Care Sex Therapist Name Role Phone Needs PcpAngel Primary Care Provider Unav ailable Source Comments You are receiving this document as you are listed as the primary care provider,follow-up provider, or the patient has been referred to you for consultation.This is in compliance with the Medicare and[facility] EHR Incentive Program,which states Providers who transition [...] s:Type 2 diabetes mellitus with complication, unspecified alf insulin use status (HRC) Test blood glucose: Upon awakening, before evening meal and 1-2 hours after start of evening meal. Pharmacy dispense brand based on insurance. 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 Gender Identity Not on file Sexual Orientation Not on file Last Filed Vital Signs Vital Sign Reading Time Taken Comments Blood Pressure 114/74 10/24/2017 8:03 AM CDT Pulse 69 10/24/2017 8:03 AM CDT Temperature 36.2 C (97.2 F) 04/30/2017 9:57 AM SOLUTIONS DEVELOPER Respiratory Rate 20 08/28/2017 11:2 5 AM [...] Services) 1981 Adult Preventive Visit 1983 HepB Vaccine (1) 1984 Pneumococcal Vaccine 50+ Yrs (1 of 2 - PCV) 1984 Zoster/Shingles Vaccine (1 of 2) 2015 Diabetes: HGBA1C 02/01/2018 08/01/2017, 08/2016, 04/02/2017 Diabetes: Urine Microalbumin 04/15/2018 04/15/2017 Diabetes: Creatinine 09/23/2018 09/23/2017, 04/18/2017, 04/09/2017, Additional history exists Diabetes: Lipid Panel 08/01/2022 08/01/2017 , 02/09/2008 (Completed) COVID-19 Vaccine ( season) 2024 Influenza Vaccine (#1) 2024 7, 04/02/2017, 04/19/2008 DTaP/Tdap/Td Vaccine (5 - Tdap) 04/01/2027 04/01/2017, 04/01/2017, 12/28/2014, Additional history exists HepA Vaccine Aged Out No longer eligi ble based on patient's age to complete this topic Hib Vaccine Aged Out No longer eligi ble based on patient's age to complete this topic IPV (Polio) Vaccine Aged Out No longe r eligible based on patient's age to complete this topic MCV4 Vaccine Aged Out No longer eligi ble based on patient's age to complete this topic Meningococcal B Vaccine Aged Out No l onger eligible based on patient's age to complete [...] ALBUMIN/CREAT RATIO Routine 04/15/2017 2 :31 PM SOLUTIONS DEVELOPER Uncontrolled type 2 diabetes mellitus without complication, without long-term current use of insulin (HRC) from Last 3 Months or Most Recently Relevant to Health Maintenance Results * (ABNORMAL) Basic Metabolic Panel (09/23/2017 9:29 AM CDT) Sodium 140 135 - 145 mmol/L 09/23/2017 9:57 AM [facility] Potassium 4.1 3.5 - 5.0 mmol/L 09/23/2017 9:57 AM [facility] Chloride 103 98 - 107 mmol/L 09/23/2017 9:57 AM [facility] CO2 25 21 - 31 mmol/L 09/23/2017 9:57 AM [facility] Anion Gap 12 5 - 18 09/23/2017 9:57 AM [facility] Glucose 205(H) 65 - 100 mg/dL 09/23/2017 9:57 AM [facility] Calcium 8.8 8.5 - 10.5 mg/dL 09/23/2017 9:57 AM [facility] BUN 19 8 - 25 mg/dL 09/23/2017 9:57 AM [facility] Creatinine 0.70(L) 0.72 - 1.25 mg/dL 09/23/2017 9:57 AM [facility] BUN/ CREA RATIO 27(H) 10 - 20 09/23/201 8 9:57 AM [facility] GFR, Est If >60 >60 ml/min/1.7 3m2 09/23/2017 9:57 AM [facility] GFR, Estimated >60 >60 ml/min/1.7 3m2 09/23/2017 9:57 AM [facility] Blood specimen (specimen) (BLOOD:) 09/23/2017 9:29 AM CDT 09/23/2017 9:32 AM CDT Narrative Transcriptions Robert Rodriguez MD - 05/20/2019 8:17 PM CSTNotes Recorded by Taj Flaherty MD on 09/28/2017 at 9:49 PM CDTResult noted. No new orders. us Taj Flaherty MD LAB_1 Edited Result - Final [facility] [address] [place] [address] * (ABNORMAL) Lipid Panel and Direct LDL(If Needed) (08/01/2017 11:18 AM CDT) Cholesterol 138 100 - 199 mg/dL 08/01/2017 12:06 PM [facility] Triglycerides 367(H) <150 mg/dL 08/01/2017 12:06 PM [facility] HDL Cholesterol 27(L) >40 mg/dL 8 12:06 PM [facility] Chol/HDL Ratio 5.11(H) <4.50 08/01/2017 12:06 PM [facility] PATIENT STATUS RANDOM 08/01/2017 12:06 PM [facility] Non HDL Chol, Calculated 111 <145 mg/dl 08/01/2017 12:06 PM [facility] LDL Cholesterol 38 <=130 mg/dL 08/01/2017 12:06 PM [facility] Blood specimen (specimen) (BLOOD:) 08/01/2017 11:18 AM CDT 08/01/2017 11:44 AM CDT Narrative Transcriptions Robert Rodriguez MD - 05/20/2019 9:37 PM CSTNotes Recorded by Taj Flaherty MD on 08/01/2017 at 1:22 PM CDTDiscussed relevant results and impact on the plan of care with patient at the time of the encounter. Taj Flaherty MD LAB_1 Edited Result - Final Performing Organization Address [facility] Co de Phone Number [facility] [address] [address] [facility] [address] [place] [address] * (ABNORMAL) Hgb A1c, Point of Care (08/01/2017 11:18 AM CDT) Hemoglobin A1C 8.4(H) <=6.4 % 08/01/2017 12:06 PM CDT [facility] Blood specimen (specimen) (BLOOD:) 08/01/2017 11:18 AM CDT 08/01/2017 11:44 AM CDT Narrative Transcriptions Robert Rodriguez MD - 05/20/2019 9:37 PM CSTNotes Recorded by Taj Flaherty MD on 08/01/2017 at 1:22 PM CDTDiscussed relevant results and impact on the plan of care with patient at the time of the encounter. Taj Flaherty MD LAB_1 Edited Result - Final Performing Organization Address [facility] Co de Phone Number [facility] [address] * Microalbumin/Creatinine Ratio (04/15/2017 2:31 PM SOLUTIONS DEVELOPER) ALB URINE RANDOM 17.4 mg/L 04/15/2017 9:14 PM SOLUTIONS DEVELOPER [employer] [facility] Creatinine,Ur 2.96 g/L 04/15/2017 9:14 PM SOLUTIONS DEVELOPER [facility] Albumin, Urine, Random 5.9 <30.0 mg/g creat 04/15/2017 9:14 PM SOLUTIONS DEVELOPER [facility] Urine specimen (specimen) (Urine) 04/15/2017 2:31 PM SOLUTIONS DEVELOPER 04/15/2017 6:57 PM SOLUTIONS DEVELOPER Narrative HP CONVERSION - 04/15/2017 9:14 PM SOLUTIONS DEVELOPER If Microalbumin is elevated, consider the following: Elevations seen with incipient nephropathy associated with diabetes mellitus or hypertension. Stress, exercise, hematuria, and urinary tract infection may also produce elevated results. If clinically indicated, confirm with 24 Hour Microalbumin. us Taj Flaherty MD LAB_1 Final Result HP CONVERSION [facility]-CEN[facility]AL LABORATORY [address] [place] [address] from Last 3 Months or Most Recently Relevant to Health Maintenance Advance Directives * Full Code (Latest Code Status on File) Date Activated Date Inactivated Comments 04/09/2017 6:57 PM 04/12/2017 5:53 PM * Full Code Date Activated Date Inactivated Comments 04/01/2017 7:32 PM 04/02/2017 11:13 PM Care Teams Sex Therapist Relationship Specialty Start Date End Date Needs PcpAngel [address] [place] [phone] PCP - General 08/31/21
--- OUTSIDE RECORDS SUMMARY | 2024-08-31 18:50 | XMS_ITS | Clinical Summary ---
Author Organization [employer] [facility] Address [address] [place] [address] Care Team Providers Care Vegetable Specker Name Role Phone Clinic, No Pcp Or [...] with type 2 diabetes m germaine 08/03/2017 New Zealander speaking patient 04/17/2017 Acute deep vein thrombosis [...] Department Care Team Description 07/10/2024 Orders Only [facility] Scanner 1 scan: (1-Ord) 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 ASSISTANT Gender Identity Not on file Sexual Orientation Not on file Obstetrics History Last Filed Vital Signs Vital Sign Reading Time Taken Comments Blood Pressure 114/74 10/24/2017 8:03 AM CDT Pulse 69 10/24/2017 8:03 AM CDT Temperature 36.2 C (97.2 F) 04/30/2017 9:57 AM FIELD RESEARCH ASSISTANT Respiratory Rate 20 08/28/2017 11:2 5 AM [...] 45-75 08/01/2022 08/01/2017, 02/09/2008 [facility] COVID-19 vaccine series (2023- season) 2024 Influenza Vaccine (Season Ended) 2025 04/02/20 17, 04/19/2008 Tetanus booster 04/01/2027 04/01/2017, 12/11, 10/31/2007 Tdap Completed 04/01/2017, 12/11, 10/31/2007 Procedures Procedure Name Priority Date/Time Associated Diagnosis Comments SCAN-LABORATORY REPORT 07/10/2024 12:00 AM FIELD RESEARCH ASSISTANT LIPID PANEL W REFLEX MEASURED LDL Routine 08/01/2017 11:18 AM CDT Uncontrolled type 2 diabetes mellitus without complication, without long-term current use of insulin (HC) from Last 3 Months or Most Recently Relevant to Health Maintenance Results * SCAN-LABORATORY REPORT (07/10/2024 12:00 AM FIELD RESEARCH ASSISTANT) us Scanner OTHER Final Result * (ABNORMAL) LIPID PANEL W REFLEX MEASURED LDL (08/01/2017 11:18 AM CDT) CHOLESTEROL,TOTAL 138 100 - 199 mg/dL 08/01/2017 12:06 PM [facility] TRIGLYCERIDES 367(H) <150 mg/dL 08/01/2017 12:06 PM [facility] HDL CHOLESTEROL 27(L) >40 mg/dL 8 12:06 PM [facility] CHOL/HDL RATIO 5.11(H) <4.50 08/01/2017 12:06 PM [facility] PATIENT STATUS RANDOM 08/01/2017 12:06 PM [facility] NON-HDL CHOLESTEROL 111 <145 mg/dl 08/01/2017 12:06 PM [facility] LDL CHOLESTEROL 38 <=130 mg/dL 08/01/2017 12:06 PM [facility] Blood BLOOD SPECIMEN / Unknown Venipuncture / Unknown 08/01/2017 11:18 AM CDT 08/01/2017 11:18 AM CDT Taj Flaherty MD CHEMISTRY Final Result [facility] 10[address] [facility] 15 [facility] [place] [address] [facility] [address] [facility] [place] [address], from Last 3 Months or Most Recently Relevant to Health Maintenance Insurance [phone] [address] [employer] [address] [address] [address] [address] [address] [address] [address] [address] Care Teams Vegetable Specker Relationship Specialty Start Date End Date Clinic, No Pcp Or . PCP - General 09/12/21
--- OUTSIDE RECORDS SUMMARY | 2024-08-31 18:50 | XMS_ITS | Data Portability ---
Author Organization [facility] OFFICE Address [address] [place] [address] [place] [address] Assessment Encounter Date Assessment Date Assessment LastModified [...] HbA1c (hemoglob in A1c), blood 2023 024 [facility], [address] [place], [address], 04/27/2024 12:33:22 CMP, serum or plasma 2023 025 [facility], [address] [place], [address], 05/30/2024 15:27:45 fecal occult blood, stool 2022 023 [facility], [address] [place] [address] [place], [address], 10/05/2022 12:31:30 CMP, serum or plasma 2021 022 [facility], [address] [place], [place] [address] [place], [address], 06/26/2022 10:37:44 HbA1c (hemoglob in A1c), blood 2021 [facility], [address] [place] [address], [address], 06/26/2022 10:36:13 vitamin D, 25-hydrox y, total, serum 2021 022 [facility], [address] [place], [address], 07/03/2022 10:06:04 TSH + free T4, serum 2021 [facility], [address] [place] [address], [address], 08/20/2022 12:17:53 Referral community health worker referral 2023 024 [email or web address] Not available 01/29/2024 15:06:38 pulmonolo gist referral 2022 023 Not available 03/05/2023 09:46:59 community health worker referral 2022 023 [email or web address] Not available 08/22/2022 15:47:46 diabetic ophthalmo logy referral 2022 023 [email or web address] Not available 08/22/2022 15:53:42 restorati ve dental referral 2021 022 [email or web address] Not available 07/13/2021 20:08:26 Procedures None recorded. Surgeries None recorded. Imaging exercise stress test 2021 022 [email or web address] Not available 11/25/2021 18:33:48 XR, chest, 2 view 2021 022 [email or web address] Not available 11/25/2021 18:33:48 Medication Orders lisinopri l 10 mg tablet 2023 024 [facility], [address] [place] [address], [address], 01/29/2024 12:05:12 tadalafil 5 mg tablet 2023 024 [id number], [address] [place] [address], [id number], 01/29/2024 11:14:49 Humalog KwikPen (U-100) Insulin 100 unit/mL subcutane ous [email or web address] [place] [address], [address], 03/19/2024 17:01:55 albuterol sulfate HFA 90 mcg/actua tion aerosol inhaler [address], [address], 01/29/2024 12:05:08 clotrimaz ole 1 % topical cream [address], [address], 01/29/2024 12:05:28 glipizide ER 10 mg tablet, extended release 24 hr 2023 024 [facility], [address] [place] [address], [address], 01/29/2024 12:05:21 prednison e 20 mg tablet [address], [address], 01/29/2024 10:41:17 Zithromax Z-Aleksandar 250 mg tablet [address], [address], 01/29/2024 10:40:56 albuterol sulfate HFA 90 mcg/actua tion aerosol inhaler [address], [address], 02/28/2023 14:19:12 lisinopri l 10 mg tablet [address], [address], 08/22/2022 14:07:45 glipizide ER 10 mg tablet, extended release 24 hr [address], [address], 08/22/2022 14:07:56 lisinopri l 5 mg tablet [address], [address], 08/21/2022 15:04:35 glipizide 5 mg tablet [address], [address], 08/21/2022 14:59:07 Patient TargetsNo targets recorded. Patient Instructions Encounter Date Encounter Id Patient Instructions Last Modified By Organization Details Last Modified Time 07/13/2021 [id number] spirometry testing* [email or web address] Not available 11/21/2021 00:57:41 diabetic eye exam* [email or web address] Not available 07/13/2021 20:04:24 02/22/2022 [id number] spirometry testing* - Spirometry to assess for asthma [email or web address] Not available 04/17/2022 11:28:26 08/21/2022 [id number] spirometry testing* [email or web address] Not available 09/17/2022 17:07:54 02/28/2023 [id number] Patient/home care assistant was instructed to come back or to go to the hospital if develops worsening of symptoms or feeling ill. (symptoms included fever, nausea, vomiting,sever headache or chest pain)Patient/home care assistant verbalized understanding and agreed with management. 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 Side effects of medications were explained to patient. Patient was told to stop taking medicine in case developed new side effects. 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, Encounter Date: 02/28/2023 Community Health Worker Refe rral for Type 2 diabetes mellitus Referring Physician: Krissy Mcclure [facility] Medicine, Encounter Date: 01/29/2024 Results Created Date Observation Date Name Description Value Unit Range Abnormal Flag Note LastModifiedBy Organization Detail LastModifiedTime 07/10/1907/10/2021 HbA1c (hemo globi n A1c), blood A1C 10.2 Not Available [facility] [address] [place], [address], 07/10/2021 12:26:15 01/14/20 22 01/13/2022 CMP, serum or plasm a creatinine 0.7 Not Available [facility] [address] [place], [address], 01/13/2022 14:10:38 01/14/20 22 01/13/2022 CMP, serum or plasm a ALT 43 Not Available [facility] [address] [place] [address] [place], [address], 01/13/2022 14:10:38 01/14/20 22 01/13/2022 CMP, serum or plasm a total cholesterol 136 Not Available [facility] [address] [place] [address] [place], [address], 01/13/2022 14:10:38 01/14/20 22 01/13/2022 CMP, serum or plasm a triglyceride s 117 Not Available [facility] [address] [place] [address] [place], [address], 01/13/2022 14:10:38 01/14/20 22 01/13/2022 CMP, serum or plasm a HDL 28 low Not Available [facility] [address] [place] [address] [place], [address], 01/13/2022 14:10:38 01/14/20 22 01/13/2022 CMP, serum or plasm a LDL 85 Not Available [facility] [address] [place] [address] [place], [address], 01/13/2022 14:10:38 01/14/20 22 01/13/2022 CMP, serum or plasm a A1C 9.97 high Not Available [facility] [address] [place] [address] [place], [address], 01/13/2022 14:10:38 01/14/20 22 01/13/2022 micro album in, urine micro ratio 10 Not Available [address], [address], 01/15/2022 08:06:20 01/14/20 22 01/13/2022 HbA1c (hemo globi n A1c), blood creatinine 0.7 Not Available [facility] [place], [address], 01/30/2022 23:34:43 01/14/20 22 01/13/2022 HbA1c (hemo globi n A1c), blood ALT 43 Not Available [facility] [address] [place] [address] [place], [address], 01/30/2022 23:34:43 01/14/20 22 01/13/2022 HbA1c (hemo globi n A1c), blood total cholesterol 136 Not Available [facility] [address] [place] [address] [place], [address], 01/30/2022 23:34:43 01/14/20 22 01/13/2022 HbA1c (hemo globi n A1c), blood triglyceride s 117 Not Available [facility] [address] [place] [address] [place], [address], 01/30/2022 23:34:43 01/14/20 22 01/13/2022 HbA1c (hemo globi n A1c), blood HDL 28 low Not Available [facility] [address] [place] [address] [place], [address], 01/30/2022 23:34:43 01/14/20 22 01/13/2022 HbA1c (hemo globi n A1c), blood LDL 85 Not Available [facility] [address] [place] [address] [place], [address], 01/30/2022 23:34:43 01/14/20 22 01/13/2022 HbA1c (hemo globi n A1c), blood A1C 9.97 high Not Available [facility] [address] [place] [address] [place], [address], 01/30/2022 23:34:43 01/14/20 22 01/13/2022 lipid panel , blood creatinine 0.7 Not Available [facility] [address] [place] [address] [place], [address], 01/16/2022 12:42:41 01/14/20 22 01/13/2022 lipid panel , blood ALT 43 Not Available [facility] [place], [address], 01/16/2022 12:42:41 01/14/20 22 01/13/2022 lipid panel , blood total cholesterol 136 Not Available [facility] [place], [address], 01/16/2022 12:42:41 01/14/20 22 01/13/2022 lipid panel , blood triglyceride s 117 Not Available [facility] [address] [place] [address] [place], [address], 01/16/2022 12:42:41 01/14/20 22 01/13/2022 lipid panel , blood HDL 28 low Not Available [facility] [address] [place] [address] Beck [facility] [place], [address], 01/16/2022 12:42:41 01/14/20 22 01/13/2022 lipid panel , blood LDL 85 Not Available [facility] [address] [place] [address] [place], [address], 01/16/2022 12:42:41 01/14/20 22 01/13/2022 lipid panel , blood A1C 9.97 high Not Available [facility] [address] [place] [address] [place], [address], 01/16/2022 12:42:41 06/25/19 23 06/25/2022 CMP, serum or plasm a hemoglobin A1C 10.09 high Not Available [facility] [place], [address], 06/26/2022 10:37:44 06/25/19 23 06/25/2022 CMP, serum or plasm a creatinine 0.7 Not Available [facility] Beck [place] [facility], [address], 06/26/2022 10:37:44 06/25/19 23 06/25/2022 CMP, serum or plasm a ALT 49 Not Available [facility] [place], [address], 06/26/2022 10:37:44 06/25/19 23 06/25/2022 HbA1c (hemo globi n A1c), blood hemoglobin A1C 10.09 high Not Available [facility] [place], [address], 06/25/2022 14:20:37 06/25/19 23 06/25/2022 HbA1c (hemo globi n A1c), blood creatinine 0.7 Not Available [facility] [address] [place] [address] [place], [address], 06/25/2022 14:20:37 06/25/19 23 06/25/2022 HbA1c (hemo globi n A1c), blood ALT 49 Not Available [facility] [address] [place] [address] [place], [address], 06/25/2022 14:20:37 06/25/19 23 06/25/2022 TSH + free T4, serum TSH reflex FT4 3.990 uIU/m L 0.270- 4.200 normal Not Available [facility] [address] [place] [address] [place], [address], 08/20/2022 12:16:47 09/28/19 23 09/27/2022 HbA1c (hemo globi n A1c), blood A1C 10.1 high Not Available [facility] [address] [place] [address] [place], [address], 09/28/2022 12:15:54 04/27/20 24 04/27/2024 HbA1c (hemo globi n A1c), blood A1C 9.1 high Not Available [address], [address], 04/27/2024 12:09:27 05/29/19 25 05/29/2024 CMP, serum or plasm a glucose 181 high Not Available [facility] [address] [place], [address], 05/29/2024 13:43:52 05/29/19 25 05/29/2024 CMP, serum or plasm a eGFR >90 Not Available [facility] [address] [place], [address], 05/29/2024 13:43:52 05/29/19 25 05/29/2024 CMP, serum or plasm a AST 36 Not Available [facility] [address] [place], [address], 05/29/2024 13:43:52 05/29/19 25 05/29/2024 CMP, serum or plasm a ALT 45 Not Available [facility] [address] [place], [address], 05/29/2024 13:43:52 07/10/19 25 07/10/2024 hemog lobin A1c, QN, blood A1C 9.6 high Not Available [facility] [address] [place], [address], 07/10/2024 12:26:56 Result Notes None recorded. Problems Name Problem SNOMED Code Status Onset Date Resolution Date Notes Provider Name and Address Organization Details Recorded Time Type 2 diabetes mellitus 84818239 Active 2021 MARCO PULIDO [address] [place], [address], [place] [employer] 2 14:53:10 Asthma 216365875 Active 2021 ACtually , given smoking history, probably COPD. Needs PFTs-not complete d when ordered MARCO PULIDO [address] [place], [address], [facility] [employer] 3 14:50:16 Deep venous thrombos is 059478813 Completed 202102/21/2022 MARCO PULIDO [address] [facility] [place], [address], [facility] 2 14:50:44 Deep venous thrombos is 186139841 Completed 202208/21/2022 Removal Reason: after knee surgery PRISCILLA PULIDO [address] [facility] [place], [address], [facility] 3 14:49:52 Steatosi s of liver 922116445 Active 2022 PRISCILLA PULIDO [address] [facility] [place], [address], [facility] 3 15:09:33 Hyperten sive disorder 56133392 Active 2022 PRISCILLA PULIDO [address] [facility] [place], [address], [facility] 3 15:09:44 Notes:hand and leg surgery Problem [...] Insulin KwikPen 20U Qam, 30U Qpm active 08/25/24 AM: [id number] 02/19/25 x1 08/03/24 LSM: [id number] 02/19/25 x1 07/08/24 (LRB): [id number] , 02/19/25 x 1 box AM: Lot- [id number] Exp: 02/20/20 x1 5: LSM Lot:[id number] Exp: 02/20/20 x1 LSM Lot: [id number] Exp: x1 boxAs per pt insulin was distribu sunita on 03/23/24 in [place] office by unknown staff:Nicole t: [id number] Exp: 02/20/20 x1 box Not Available Not [...] 07/13/2021 72 /min 141 mm[Hg] 85 mm[Hg] PRISCILLA PULIDO [address] [place], [address], [place] - [employer] 07/13/2021 11:32:06 Date Recorded Body weight Body mass index (BMI) Body height Body temperature Heart rate Systolic blood pressure Diastolic blood pressure Provider Name and Address Organization Details Last Updated DateTime 2 66280.8 4 g 28.9 kg/m2 178.82 cm 96.9 [degF] 74 /min 136 mm[Hg] 81 mm[Hg] Sara Parnell [place] - [employer] 2 11:57:42 Date Recorded Body height Body mass index (BMI) Body weight Heart rate Systolic blood pressure Diastolic blood pressure Provider Name and Address Organization Details Last Updated DateTime 3 177.8 cm 29.6 kg/m2 51040.1 8 g 77 /min 151 mm[Hg] 85 mm[Hg] [facility] [address] [place], [address], [facility] [employer] [facility] 3 15:05:12 Date Recorded Body height Body mass index (BMI) Body weight Heart rate Respiratory rate Body temperature Oxygen saturation Oxygen saturation in Arterial blood by Pulse oximetry Systolic blood pressure Diastolic blood pressure Provider Name and Address Organization Details Last Updated DateTime 3 177.8 cm 28.4 kg/m2 66896.8 5 g 82 /min 22 /min 97.2 [degF] 98 % 98 % 161 mm[Hg] 95 mm[Hg] Milly Smith [facility] [employer] [facility] 3 10:54:51 Date Recorded Body height Body mass index (BMI) Body weight Heart rate Oxygen saturation Oxygen saturation in Arterial blood by Pulse oximetry Systolic blood pressure Diastolic blood pressure Provider Name and Address Organization Details Last Updated DateTime 4 177.8 cm 29.1 kg/m2 01268.5 3 g 67 /min 98 % 98 % 140 mm[Hg] 80 mm[Hg] Krissy Mcclure MD [address] [place], [address], [facility] [employer] [facility] 4 11:29:35 Social History None recorded. Functional Status None recorded. Mental Status None recorded. Family History Nothing Reported. Medical History No medical history recorded. Past Encounters Encounter ID Performer Location Encounter Start Date Encounter Closed Date Diagnosis/Indication Diagnosis SNOMED-CT Code Diagnosis ICD10 Code Diagnosis Note [id number] [facility] [address] [place] [address] 06/27/2021 15:48:32 06/27/2021 16:37:46 Pain in left arm 414047966 M79.602 Provided some mild acupressur e which pt found helpful. Tension-type headache 39 9859916 G44.209 Migraine 70574803 G43.90 9 Type 2 vani betes mellitus without complication 201967739 E11.9 Type 2 vani betes mellitus 33025956 E11.9 Stop emopflufoz in as we cannot get this medication . Discussed risk of hyperglyce marii with temporary prednisone use. Discussed the probable need to initiate NPH. He has been watching diet. Advised close BG monitring. [id number] [facility] [address] [place] [address] 07/13/2021 10:42:52 07/13/2021 12:13:26 Type 2 diabetes mellitus 01215434 E11.9 Diabetes mellitus 013961 09 E11.21 Cont outstandin g BG record\Eye , dental examIncrea se glipizide to 5mg bid (all to metformin) He was given DM booklet today, reviewed hypoglycem ia and actions to take. Also discussed diet (do not completely avoid all glucose) . He was commended on his progress. Migraine 23952105 G43.90 9 headache now c/w migraine. Prednisone helpful as abortive regimine.G radually taper caffeine intake, increase water intakeREco nsider alt migraine medication prn. Discussed side effects with typical agents. Pain in left arm 6918963 00 M79.602 Sx can be worse with activity and now noting sob up stairs.Str ess testPFTs. Secondary erectile dysfunction 335281518 N52.39 LIkely r/t DM. Can re-evaluat e future visit after DM controlled . Dyspnea on exertion 6084 5006 R06.09 [id number] [facility] [address] [place] [address] 02/22/2022 11:43:17 02/22/2022 14:38:37 Uncontrolled type 2 diabetes mellitus 881093083 E11.65 Does not tolerate metforminO N glipizide; [...] other options at this time. Diabetes mellitus 651541 09 E11.9 See above Fatigue 87365685 R53.83 Dyspnea on exertion 6084 5006 R06.09 11 update: Staff notified that pt has been unresponsi ve to scheduling attempts for spirometry , so order cancelled. [id number] ANNEL OCONNOR, [facility] [address] [place] [address] 08/21/2022 14:02:41 08/21/2022 16:01:13 Chronic obstructive pulmonary disease 24313410 J44.9 Presumed diagnosis . Spirometry to confirm diagnosis. Obtain pulmonary CT results-no results found at [facility] or [facility]. I think pt was confusing his abdominal/ pelvic CTPt does not technicall y meet screening criteria for lung cancer screening as he quit smoking 20 years ago, but could consider based on spirometry results Uncontroll ed type 2 diabetes mellitus 324600946 E11.65 Does not tolerate metforminW e discussed how poorly controlled BG will cont to lead to more health problems and more frequent health problems. He reluctantl y agrees to NPH.+Lengt hy discussion on changing from glipizide 2-5mg pills bid to -10mg ER glipizide bidAdvise initiation of insulin. Start NPH 6 units dailyConsi ash statin future visiy Hypertensive disorder 38 932665 I10 Increase lisinopril from 5 to 10mg daily Plane wart 832054588 B07 .8 Pt wants to proceed with treatment [id number] [facility] [address] [facility] [place] [address] 02/28/2023 10:50:10 02/28/2023 17:28:10 Hypertensive disorder 77411300 I10 continue to monitor blood pressure, continue with current medication s Steatosis of liver 1007 K76.0 Type 2 vani betes mellitus 28222247 E11.9 continue with current medication sincrease Novoline dose by 2 units if blood glucose is above 200, and wait for 2 days, repeat the process again. If blood glucose goes below 100, cut back 2 units on each inject and repeat the process in 2 days. Acute exac erbation of chronic obstructive pulmonary disease 935950803 J44.1 persistent upper respirator y symptoms and hx of COPD/asthm apatient declined to be tested for covid- he reported covid vaccinated if symptoms worsen, [place] [id number] [facility] [address] [place] [address] 01/29/2024 10:11:31 01/29/2024 11:39:56 Type 2 diabetes mellitus 85339057 E11.9 - increase Humalog per below- A1C and f/u in 3 months- referral back to [facility] Steatosis of liver 1007 K76.0 - likely, given comorbidit ies and elevated LFTs 01/2024- reviewed diet changes, [facility] referral Hypertensive disorder 38 517147 I10 - continue Lisinopril Acute exac erbation of chronic obstructive pulmonary disease 815320283 J44.1 Uncontroll ed type 2 diabetes mellitus 884945108 E11.65 Erectile dysfunction 860 423244 F52.21 - trial of Cialis Candidal balanitis 75946 007 B37.42 - history and comorbidit ies c/w balanitis, trial of Clotrimazo le, understand s red flag symptoms Asthma 523023951 J45.90 9 Health Concerns Section Related Observation [...] 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 With regards to his DM, he [...] not doing foot checks. MARCO PULIDO [address] [place], [address], [facility] [employer] 07/13/2021 12:21:29 02/22/2022 text/html Pt presents for follow-up of labs/DM. He notes that BGs have been running 160-180 before eating; 160 after eating at night. He does not like checking his BG due to pain in his fingers. He tries to eat well, but has had some struggles. Emphasizes that he works a lot and does not prioritize his health. MARCO PULIDO [address] [place], [address], [facility] [employer] 03/22/2022 09:35:32 08/21/2022 text/html Pt presents for [...] clean floors in socks. MARCO PULIDO [address] [place], [address], [facility] [employer] 08/21/2022 17:00:30 02/28/2023 text/html patient has baseline of asthma hard of breathing and associated with cough for the 1 week, it was associated with fever. Cough lingered and been persistent and will worsen with talking. ANUJ NAVA MD [address] [place], [address], [facility] [employer] 02/28/2023 12:57:48 01/29/2024 text/html Anderson is in with his Irasema for DM2 followup.Recent labs:- A1C 10.8, elevated LFTs, LDL 93 Checks sugars approximately twice/week, 250-300. No known hypoglycemia.Only taking insulin at night because he feels good in the morning.Hasn't been taking Glipizide for awhile, intolerant of Metformin 2/2 GI side effects. Krissy Mcclure MD [address] [place], [address], [facility] 01/29/2024 11:41:11
[2024-08-31 19:04] VITALS: BP 174/104; PULSE 82; RESP 16; TEMP 36.8
--- NOTE | 2024-08-31 19:37 | CRLHL7_ITS ---
For Patients: As a result of the Century Cures Act, medical imaging exams and procedure reports are released immediately into your electronic medical record. You may view this report before your referring provider. If you have questions, please contact your health care provider. Indication: Headache. Technique: CT of the brain was performed without intravenous contrast. Comparison: CT temporal bone 12/31/2023. Findings: No acute blurring of the guerin-white differentiation. There is no intracranial hemorrhage. The ventricles are proportionate to the cerebral sulci. The 4th ventricle is midline. Basal cisterns appear patent. No abnormal extra-axial fluid collection identified. There is no intracranial mass, mass effect or midline shift identified. No depressed calvarial fracture. Impression: No acute intracranial process. Please note that all CT scans at this facility use dose modulation, iterative reconstruction, and/or weight-based dosing when appropriate to reduce radiation dose to as low as reasonably achievable. Dictated by Gene Felix MD @ 08/31/2024 8:53:58 PM (Electronically Signed)
--- NOTE | 2024-08-31 19:37 | ED.GENADULT ---
HPI - General Adult General Date Seen: 08/31/24 Chief complaint: Headache/Migraine Stated complaint: Headache, blurred vision Time Seen by Provider: 08/31/24 19:30 Source: patient and RN notes reviewed Mode of arrival: ambulatory Limitations: no limitations History of Present Illness HPI narrative: Anderson is a very pleasant 59-year-old gentleman with a history of diabetes, poor wound healing who comes to the emergency room for a headache. Andersno notes that he has also been told recently that his blood pressure is elevated. He notes the onset of headache 2 days ago that has been persistent and not allowing him to sleep. Notes that starts on the right side of his head wraps around the back to the left side and is affecting the vision in his left eye. States he has some blurriness there. Does not seem to matter if he is lying down or sitting up. It is associated with nausea. He has not had any fevers chills sore throat any denies any head trauma. Has not had problems with headaches in the past. Denies numbness or tingling of the extremities. Does not have any chest pain or shortness of breath. Related Data Home Medications ?Medication ?Instructions ?Recorded ?Confirmed insulin regular human 100 unit/mL 25 unit subcut BID 01/18/23 08/31/24 (3 mL) subcutaneous pen (Novolin R FlexPen) Previous Rx's ?Medication ?Instructions ?Recorded amoxicillin 500 mg capsule 500 mg PO QID 7 days #28 caps 12/31/23 ibuprofen 800 mg tablet 800 mg PO Q8H PRN pain #30 tabs 12/31/23 [id number]-dhsaciboi 3.5 4 drp Otic (ear-right) Q6H 7 days 12/31/23 mg-10,000 unit/mL-1 % ear #10 mL drops,susp Allergies Allergy/AdvReac Type Severity Reaction Status Date / Time cockroach Allergy Unknown Verified 08/31/24 19:03 Review of Systems Status of ROS: Reports: 10 or more systems reviewed and unremarkable except as noted in History and below Const: Denies: fever or chills Eyes: Reports: blurry vision (Left eye) ENMT: Denies: throat pain, neck pain or nasal congestion Cardio: Denies: chest pain, swelling of feet/ankles or shortness of breath with exertion Resp: Denies: shortness of breath or cough GI: Reports: nausea; Denies: abdominal pain Musculo: Denies: back pain, neck pain or extremity pain [facility] Social History Smoking Status: Former smoker Do you use any of these nicotine containing products: None Second hand tobacco smoke exposure: No How often do you have a drink containing alcohol: never AUDIT-C Alcohol total score: 0 Non-prescribed substance use: denies use service: No Exam Narrative: Exam Narrative: Alert and oriented. Very good Tamazight but does benefit from director global strategic publisher sales. EOM is full and pupils equal round reactive. Visual mckenzie appear to be intact. Face symmetrical with eyebrow raise smile. Neck is supple. Heart with regular rate and rhythm and lungs are clear bilaterally. Head is atraumatic normocephalic. No meningeal signs. Abdomen soft. Lower extremities show Juan wrap around right leg. Thing all extremities without difficulty. No significant photophobia. Const: Vital Signs, click to edit/add: Vital Signs - 24 hr 08/31/24 19:04 08/31/24 21:03 08/31/24 21:13 Temperature 98.3 F Pulse Rate [Pulse Oximeter] 82 72 72 Respiratory Rate 16 18 Blood Pressure [Ri ght Upper Arm] 174/104 H 158/87 H 154/84 H Pulse Oximetry 97 96 Oxygen Delivery Me thod Room Air Room Air 08/31/24 21:24 08/31/24 21:33 Temperature Pulse Rate [Pulse Oximeter] 75 Respiratory Rate Blood Pressure [Ri ght Upper Arm] 163/85 H 163/91 H Pulse Oximetry 96 Oxygen Delivery Me thod Documenting provider has reviewed patient's vital signs: yes Course Course ED Course: Differential diagnosis includes but is not limited to dissection, subarachnoid hemorrhage, intracranial pathology, migraine, temporal arteritis, anxiety. Will place IV and give Benadryl 25 mg, Reglan 10 mg IV piggyback and 1 L normal saline. Given the duration severity and timing of this headache will have patient undergo head CT. Patient is in agreement with this plan. Further labs include a CBC, basic, ESR. Reevaluation(s) Reevaluation #1: Patient notes almost complete resolution of his headache post medication. Head CT reassuring with no evidence of abnormality. Upon further discussion with assistance of director global strategic publisher sales patient does describe headaches in the past and thus I do think that he likely has a migraine type history. He notes that he has never had a headache last quite this long. But again, has had resolution of the headache. His laboratory values are reassuring with a normal white count and CRP. Electrolyte panels within normal limits including a creatinine that is normal at 0.6 his glucose is elevated at 273. He has tested negative for COVID and influenza. Vital Signs Vital signs: Initial Vital Signs Temperature 98.3 F 08/31/24 19:04 Temperature Source Temporal Artery Scan 08/31/24 19:04 Pulse Rate 82 08/31/24 19:04 Respiratory Rate 16 08/31/24 19:04 Blood Pressure 174/104 H 08/31/24 19:04 Blood Pressure Mean 127 H 08/31/24 19:04 Oxygen Delivery Method Room Air 08/31/24 19:04 Vital Signs Temperature 98.3 F 08/31/24 19:04 Pulse Rate 82 08/31/24 19:04 Respiratory Rate 16 08/31/24 19:04 Blood Pressure 174/104 H 08/31/24 19:04 Oxygen Delivery Method Room Air 08/31/24 19:04 Temperature 98.3 F 08/31/24 19:04 Pulse Rate 75 08/31/24 21:33 Respiratory Rate 18 08/31/24 21:03 Blood Pressure 163/91 H 08/31/24 21:33 Pulse Oximetry 96 08/31/24 21:33 Oxygen Delivery Method Room Air 08/31/24 21:03 Medications Administered Medications: Discontinued Medications Generic Name Dose Route Start Last Admin Trade Name Freq PRN Reason Stop Dose Admin Diphenhydramine HCl 25 mg 08/31/24 19:37 08/31/24 20:08 Diphenhydramine 50 Mg/Ml Inj IVP 08/31/24 19:38 25 mg ONCE ONE Administration Metoclopramide HCl 10 mg/ 102 mls @ 306 mls/hr 08/31/24 19:37 08/31/24 21:14 Sodium Chloride IVPB 08/31/24 19:38 Infused ONCE ONE Infusion Sodium Chloride 1,000 mls @ 1,000 mls/hr 08/31/24 19:37 08/31/24 21:14 0.9 % Sodium Chloride 1000 Ml IV 08/31/24 20:36 Infused .Q1H SCARLET Infusion Medical Decision Making MDM Narrative Medical decision making narrative: 1. Headache-suspect a history of migraines given his symptoms. Fortunately with the use of Benadryl, fluids and Reglan he has had resolution of his headache. His head CT is negative. Recommend rest this evening. Follow-up with primary clinic for ongoing symptoms. No symptoms of jaw claudication, no chest pain, recent fevers. 2. Hypertension-patient notes that his blood pressure has been increasing and he was told this by the wound care clinic as well as [facility]. He is not on antihypertensive. Given his history of diabetes likely the Juan inhibitors would be most beneficial to him. Will start him on lisinopril 10 mg daily. He will start this tomorrow morning. I have asked him to follow up with the clinic at the end of this week for a check of creatinine and potassium. 3. Hyperglycemia 4. Disposition-home at this time. Take insulin as directed. Return as needed for worsening symptoms. Medical Records Medical records reviewed: Yes I reviewed the patient's medical records Lab Data Lab results reviewed: Yes I reviewed the patient's lab results Labs: Lab Results 08/31/24 08/31/24 Range/Units 20:11 20:13 WBC 7.61 (4.50-11.00) K/uL RBC 4.99 (4.30-5.90) m/uL Hgb 15.1 (13.5-17.5) gm/dL Hct 43.2 (37.0-53.0) % MCV 87 (80-100) fL MCH 30 (26-34) pg MCHC 35 (32-36) gm/dL RDW Coeff of Yomi 12.7 (11.5-15.5) % Plt Count 215 (140-440) K/uL Neut % (Auto) 52.5 (42.0-72.0) % Lymph % (Auto) 34.3 (20-44) % [place] % (Auto) 7.6 (0.0-11.0) % Eos % (Auto) 4.6 (0.0-7.0) % Baso % (Auto) 0.1 (0.0-3.0) % Neut # (Auto) 3.99 (1.7-7.0) K/uL Lymph # (Auto) 2.61 (0.90-2.90) K/uL [place] # (Auto) 0.60 (0.00-0.90) K/UL Eos # (Auto) 0.35 (0.00-0.50) K/uL Baso # (Auto) 0.01 (0.00-0.30) K/uL Abs Immat Gran (auto) 0.07 (0.00-0.30) K/uL Imm/Tot Granulo (auto) 0.9 % ESR 4 (2-15) mm/hr Sodium 137 (135-149) mmol/L Potassium 3.7 (3.6-5.1) mmol/L Chloride 103 (96-114) mmol/L Carbon Dioxide 27 (20-32) mmol/L Anion Gap 7 (7-15) mEq/L BUN 12 (7-30) mg/dL Creatinine 0.6 (0.5-1.5) mg/dL Estimated GFR 111 ml/min Glucose 272 H (60-115) mg/dL Calcium 9.1 (8.4-10.6) mg/dL Total Bilirubin 0.5 (0.1-1.5) mg/dL AST 35 (12-35) U/L ALT 35 (4-50) U/L Alkaline Phosphatase 108 (40-150) U/L C-Reactive Protein < 0.5 L (0.5-1.0) mg/dL Total Protein 6.7 (6.0-8.3) g/dL Albumin 4.1 (3.3-5.0) g/dL SARS-CoV-2 (PCR) Negative SARS-CoV-2 (Negative) Influenza Type A (PCR) Negative PCR FLU A (Negative) Influenza Type B (PCR) Negative PCR FLU B (Negative) Lab Acknowledgement Test Added Imaging Data CT scan - head: Attestation: I have reviewed the pertinent imaging results. My impression: I do not note any acute findings by my read Radiologist's impression: No acute blurring of the guerin-white differentiation. There is no intracranial hemorrhage. The ventricles are proportionate to the cerebral sulci. The 4th ventricle is midline. Basal cisterns appear patent. No abnormal extra-axial fluid collection identified. There is no intracranial mass, mass effect or midline shift identified. No depressed calvarial fracture. Impression: No acute intracranial process. Discharge Plan Discharge Clinical Impression: Migraine, Hypertension Patient Disposition: Home, Self-Care Condition: Improved Additional Instructions: Return as needed for worsening headache. I believe you have a form of migraine. I do not think this headache is related to the elevated blood pressure. However, we do need to manage her blood pressure. We will use a medicine called lisinopril which is a diuretic. Start this medication tomorrow morning. You can fill your prescription at [facility] and it will not cost you anything. This medication may alter your potassium or kidney function. Therefore, I do want you to follow-up later this week at [facility] for a blood test. Return to the emergency room for worsening symptoms. Prescriptions: No Action Novolin R FlexPen 100 unit/mL (3 mL) insulin pen 25 unit subcut BID amoxicillin 500 mg capsule 500 mg PO QID 7 Days Qty: 28 0RF ibuprofen 800 mg tablet 800 mg PO Q8H PRN (Reason: pain) Qty: 30 0RF lqgmspbd-mxoitimgp-FG 3.5-10,000-1 mg/mL-unit/mL-% drops,suspension 4 drp Otic (ear-right) Q6H 7 Days Qty: 10 0RF Follow Up/Referrals: Sapna Tesfaye [Primary Care Provider] - Stand Alone Forms: [employer] Info Instructions
[2024-08-31] MEDS: 0.9 % SODIUM CHLORIDE 1000 ml 1,000 ML IV (19:47)
--- OUTSIDE RECORDS SUMMARY | 2024-08-31 19:49 | XMS_ITS | Clinical Summary ---
Author Organization [facility] Address [address] [place] [id number] Care Team Providers Care Track Laborer Name Role Phone Clinic, No Pcp Or [...] with type 2 diabetes m germaine 08/03/2017 Mosotho speaking patient 04/17/2017 Acute deep vein thrombosis [...] Department Care Team Description 07/10/2024 Orders Only [facility] Scanner 1 scan: (1-Ord) [facility], HG A1CD, 07/10/2024 from Last 3 [...] on file Legal Sex Male 8:41 AM CRYSTALLOGRAPHER Gender Identity Not on file Sexual Orientation Not on file Obstetrics History Last Filed Vital Signs Vital Sign Reading Time Taken Comments Blood Pressure 114/74 10/24/2017 8:03 AM CDT Pulse 69 10/24/2017 8:03 AM CDT Temperature 36.2 C (97.2 F) 04/30/2017 9:57 AM CRYSTALLOGRAPHER Respiratory Rate 20 08/28/2017 11:2 5 AM [...] 45-75 08/01/2022 08/01/2017, 02/09/2008 [facility] COVID-19 vaccine series (2023- season) 2024 Influenza Vaccine (Season Ended) 2025 04/02/20 17, 04/19/2008 Tetanus booster 04/01/2027 04/01/2017, 12/11, 10/31/2007 Tdap Completed 04/01/2017, 12/11, 10/31/2007 Procedures Procedure Name Priority Date/Time Associated Diagnosis Comments SCAN-LABORATORY REPORT 07/10/2024 12:00 AM CRYSTALLOGRAPHER LIPID PANEL W REFLEX MEASURED LDL Routine 08/01/2017 11:18 AM CDT Uncontrolled type 2 diabetes mellitus without complication, without long-term current use of insulin (HC) from Last 3 Months or Most Recently Relevant to Health Maintenance Results * SCAN-LABORATORY REPORT (07/10/2024 12:00 AM CRYSTALLOGRAPHER) us Scanner OTHER Final Result * (ABNORMAL) LIPID PANEL W REFLEX MEASURED LDL (08/01/2017 11:18 AM CDT) CHOLESTEROL,TOTAL 138 100 - 199 mg/dL 08/01/2017 12:06 PM [facility] TRIGLYCERIDES 367(H) <150 mg/dL 08/01/2017 12:06 PM [facility] HDL CHOLESTEROL 27(L) >40 mg/dL 8 12:06 PM [facility] CHOL/HDL RATIO 5.11(H) <4.50 08/01/2017 12:06 PM [facility] PATIENT STATUS RANDOM 08/01/2017 12:06 PM [facility] NON-HDL CHOLESTEROL 111 <145 mg/dl 08/01/2017 12:06 PM [facility] LDL CHOLESTEROL 38 <=130 mg/dL 08/01/2017 12:06 PM [facility] Blood BLOOD SPECIMEN / Unknown Venipuncture / Unknown 08/01/2017 11:18 AM CDT 08/01/2017 11:18 AM CDT Taj Flaherty MD CHEMISTRY Final Result [facility] [address] [facility] [address] [facility] [place] [address] [facility] [address] [facility] [place] [address], from Last 3 Months or Most Recently Relevant to Health Maintenance Insurance [phone] [address] [employer] [phone] [address] [phone] [address] [phone] [address] [phone] [address] Care Teams Track Laborer Relationship Specialty Start Date End Date Clinic, No Pcp Or . PCP - General 09/12/21
--- OUTSIDE RECORDS SUMMARY | 2024-08-31 19:50 | XMS_ITS | Clinical Summary ---
Author Organization [facility] Address [address] [place] [address] Care Team Providers Care International Marketing Executive Name Role Phone Needs PcpAngel Primary Care Provider Unav ailable Source Comments You are receiving this document as you are listed as the primary care provider,follow-up provider, or the patient has been referred to you for consultation.This is in compliance with the Medicare and[facility] EHR Incentive Program,which states Providers who [...] tions:Type 2 diabetes mellitus with complication, unspecified shelter [...] with type 2 diabetes m ellitus 08/03/2017 Turkish speaking patient 04/17/2017 Acute deep vein thrombosis [...] Next Due Influenza IIV4 (Quadrivalent ) 0.5mL (75488) 04/02/2017,04/02/2017 Influenza, Unspecified Formulation 04/19/2008 Tdap 04/01/2017, [...] on file Legal Sex Male 11:47 AM 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 LOAN 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 CLERK Gender Identity Not on file Sexual Orientation Not on file Last Filed Vital Signs Vital Sign Reading Time Taken Comments Blood Pressure 114/74 10/24/2017 8:03 AM CDT Pulse 69 10/24/2017 8:03 AM CDT Temperature 36.2 C (97.2 F) 04/30/2017 9:57 AM MORTGAGE LOAN PROCESSING CLERK Respiratory Rate 20 08/28/2017 11:2 5 AM [...] ALBUMIN/CREAT RATIO Routine 04/15/2017 2 :31 PM MORTGAGE LOAN PROCESSING CLERK Uncontrolled type 2 diabetes mellitus without complication, without long-term current use of insulin (HRC) from Last 3 Months or Most Recently Relevant to Health Maintenance Results * (ABNORMAL) Basic Metabolic Panel (09/23/2017 9:29 AM CDT) Sodium 140 135 - 145 mmol/L 09/23/2017 9:57 AM [facility] Potassium 4.1 3.5 - 5.0 mmol/L 09/23/2017 9:57 AM [facility] Chloride 103 98 - 107 mmol/L 09/23/2017 9:57 AM [facility] CO2 25 21 - 31 mmol/L 09/23/2017 9:57 AM [facility] Anion Gap 12 5 - 18 09/23/2017 9:57 AM [facility] Glucose 205(H) 65 - 100 mg/dL 09/23/2017 9:57 AM [facility] Calcium 8.8 8.5 - 10.5 mg/dL 09/23/2017 9:57 AM [facility] BUN 19 8 - 25 mg/dL 09/23/2017 9:57 AM [facility] Creatinine 0.70(L) 0.72 - 1.25 mg/dL 09/23/2017 9:57 AM [facility] BUN/ CREA RATIO 27(H) 10 - 20 09/23/201 8 9:57 AM [facility] GFR, Est If >60 >60 ml/min/1.7 3m2 09/23/2017 9:57 AM [facility] GFR, Estimated >60 >60 ml/min/1.7 3m2 09/23/2017 9:57 AM [facility] Blood specimen (specimen) (BLOOD:) 09/23/2017 9:29 AM CDT 09/23/2017 9:32 AM CDT Narrative Transcriptions Robert Rodriguez MD - 05/20/2019 8:17 PM CSTNotes Recorded by Taj Flaherty MD on 09/28/2017 at 9:49 PM CDTResult noted. No new orders. us Taj Flaherty MD LAB_1 Edited Result - Final [facility] [address] [place] [address] * (ABNORMAL) Lipid Panel and Direct LDL(If Needed) (08/01/2017 11:18 AM CDT) Cholesterol 138 100 - 199 mg/dL 08/01/2017 12:06 PM [facility] Triglycerides 367(H) <150 mg/dL 08/01/2017 12:06 PM [facility] HDL Cholesterol 27(L) >40 mg/dL 8 12:06 PM [facility] Chol/HDL Ratio 5.11(H) <4.50 08/01/2017 12:06 PM [facility] PATIENT STATUS RANDOM 08/01/2017 12:06 PM [facility] Non HDL Chol, Calculated 111 <145 mg/dl 08/01/2017 12:06 PM [facility] LDL Cholesterol 38 <=130 mg/dL 08/01/2017 12:06 PM [facility] Blood specimen (specimen) (BLOOD:) 08/01/2017 11:18 AM CDT 08/01/2017 11:44 AM CDT Narrative Transcriptions Robert Rodriguez MD - 05/20/2019 9:37 PM CSTNotes Recorded by Taj Flaherty MD on 08/01/2017 at 1:22 PM CDTDiscussed relevant results and impact on the plan of care with patient at the time of the encounter. Taj Flaherty MD LAB_1 Edited Result - Final Performing Organization Address [facility] Co de Phone Number [facility] [address] [address] [facility] [address] [place] [address] * (ABNORMAL) Hgb A1c, Point of Care (08/01/2017 11:18 AM CDT) Hemoglobin A1C 8.4(H) <=6.4 % 08/01/2017 12:06 PM CDT [facility] Blood specimen (specimen) (BLOOD:) 08/01/2017 11:18 AM CDT 08/01/2017 11:44 AM CDT Narrative Transcriptions Robert Rodriguez MD - 05/20/2019 9:37 PM CSTNotes Recorded by Taj Flaherty MD on 08/01/2017 at 1:22 PM CDTDiscussed relevant results and impact on the plan of care with patient at the time of the encounter. Taj Flaherty MD LAB_1 Edited Result - Final Performing Organization Address [facility] Co de Phone Number [facility] [address] * Microalbumin/Creatinine Ratio (04/15/2017 2:31 PM MORTGAGE LOAN PROCESSING CLERK) ALB URINE RANDOM 17.4 mg/L 04/15/2017 9:14 PM MORTGAGE LOAN PROCESSING CLERK [employer] [facility] Creatinine,Ur 2.96 g/L 04/15/2017 9:14 PM MORTGAGE LOAN PROCESSING CLERK [facility] Albumin, Urine, Random 5.9 <30.0 mg/g creat 04/15/2017 9:14 PM MORTGAGE LOAN PROCESSING CLERK [facility] Urine specimen (specimen) (Urine) 04/15/2017 2:31 PM MORTGAGE LOAN PROCESSING CLERK 04/15/2017 6:57 PM MORTGAGE LOAN PROCESSING CLERK Narrative HP CONVERSION - 04/15/2017 9:14 PM MORTGAGE LOAN PROCESSING CLERK If Microalbumin is elevated, consider the following: Elevations seen with incipient nephropathy associated with diabetes mellitus or hypertension. Stress, exercise, hematuria, and urinary tract infection may also produce elevated results. If clinically indicated, confirm with 24 Hour Microalbumin. us Taj Flaherty MD LAB_1 Final Result HP CONVERSION [facility] [address] [place] [address] from Last 3 Months or Most Recently Relevant to Health Maintenance Advance Directives * Full Code (Latest Code Status on File) Date Activated Date Inactivated Comments 04/09/2017 6:57 PM 04/12/2017 5:53 PM * Full Code Date Activated Date Inactivated Comments 04/01/2017 7:32 PM 04/02/2017 11:13 PM Care Teams International Marketing Executive Relationship Specialty Start Date End Date Needs PcpAngel [address] [place] [id number] PCP - General 08/31/21
[2024-08-31] MEDS: diphenhydrAMINE 50 MG/ML inj 25 MG IVP (20:08)
[2024-08-31] MEDS: METOCLOPRAMIDE HCL 10 MG in 0.9 % SODIUM CHLORIDE 100 ml 100 ML 306 MG IVPB (20:08)
[2024-08-31 20:29] LABS: Albumin* 4.1 g/dL (3.3-5.0); Chloride* 103 mmol/L (96-114); Potassium* 3.7 mmol/L (3.6-5.1); Sodium* 137 mmol/L (135-149)
[2024-08-31 20:32] LABS: Alanine Aminotransferase* 35 U/L (4-50); Aspartate Amino Transferase* 35 U/L (12-35); Blood Urea Nitrogen* 12 mg/dL (7-30); Creatinine* 0.6 mg/dL (0.5-1.5); Estimated Glomerular Filt Rate 111 ml/min
[2024-08-31 20:33] LABS: Alkaline Phosphatase* 108 U/L (40-150); Anion Gap 7 mEq/L (7-15); Bilirubin Total* 0.5 mg/dL (0.1-1.5); Calcium* 9.1 mg/dL (8.4-10.6); Carbon Dioxide* 27 mmol/L (20-32); Glucose* 272 mg/dL (60-115); Total Protein* 6.7 g/dL (6.0-8.3)
[2024-08-31 20:35] LABS: Basophils Absolute Auto 0.01 K/uL (0.00-0.30); Basophils Percent Auto 0.1 % (0.0-3.0); Eosinophils Absolute Auto 0.35 K/uL (0.00-0.50); Eosinophils Percent Auto 4.6 % (0.0-7.0); Hematocrit 43.2 % (37.0-53.0); Hemoglobin* 15.1 gm/dL (13.5-17.5); Immature Granulocytes Abs Auto 0.07 K/uL (0.00-0.30); Immature Granulocytes Pct Auto 0.9 %; Lymphocytes Absolute Auto 2.61 K/uL (0.90-2.90); Lymphocytes Percent Auto 34.3 % (20-44); Mean Corpuscular HGB Conc 35 gm/dL (32-36); Mean Corpuscular Hemoglobin 30 pg (26-34); Mean Corpuscular Volume 87 fL (80-100); Monocytes Percent Auto 7.6 % (0.0-11.0); Neutrophils Absolute Auto 3.99 K/uL (1.7-7.0); Neutrophils Percent Auto 52.5 % (42.0-72.0); Platelet Count* 215 K/uL (140-440); RDW Coefficient of Variation % 12.7 % (11.5-15.5); Red Blood Count 4.99 m/uL (4.30-5.90); White Blood Count* 7.61 K/uL (4.50-11.00)
[2024-08-31 20:36] LABS: C Reactive Protein* < 0.5 mg/dL (0.5-1.0)
[2024-08-31 20:37] LABS: Slide Review Reflex No
[2024-08-31 20:52] LABS: PCR FLU A Negative PCR FLU A (Negative); PCR FLU B Negative PCR FLU B (Negative); SARS PCR* Negative SARS-CoV-2 (Negative)
[2024-08-31 21:03] VITALS: BP 158/87; PULSE 72; RESP 18; O2SAT 97
[2024-08-31 21:13] VITALS: BP 154/84; PULSE 72; O2SAT 96
[2024-08-31 21:24] VITALS: BP 163/85
[2024-08-31 21:33] VITALS: BP 163/91; PULSE 75; O2SAT 96
[2024-08-31 21:36] LABS: Erythrocyte SedimentationRate* 4 mm/hr (2-15)
== END 2024-08-31 21:51 | disposition home or self-care (01) ==
PROVIDERS: Emergency Provider Family Medicine; PCP Nurse Practitioner Family
DX: G43.909 Migraine, unspecified, not intractable, without status migrainosus (principal); I10 Essential (primary) hypertension
CPT/HCPCS: 36415; 70450; 80053; 85025; 85651; 86140; 87631; 96365; 96375; 99284; J1200; J2765; J7030

== ENCOUNTER 2024-09-15 08:04 | Outpatient (CLI) | payer OTHER, SELFPAY | END 2024-09-15 08:05 | disposition home or self-care (01) | LOC: WOUND 08:04 | PROVIDERS: PCP Nurse Practitioner Family; Visit Provider Nurse Practitioner Family | DX: E11.622 Type 2 diabetes mellitus with other skin ulcer (principal); L97.212 Non-pressure chronic ulcer of right calf with fat layer exposed; Z79.4 Long term (current) use of insulin | CPT/HCPCS: 11042; T1013 ==

== ENCOUNTER 2024-09-28 13:06 | Outpatient (CLI) | payer OTHER, SELFPAY | END 2024-09-28 13:07 | disposition home or self-care (01) | LOC: WOUND 13:06 | PROVIDERS: PCP Nurse Practitioner Family; Visit Provider Nurse Practitioner Family | DX: E11.622 Type 2 diabetes mellitus with other skin ulcer (principal); E11.65 Type 2 diabetes mellitus with hyperglycemia; L97.212 Non-pressure chronic ulcer of right calf with fat layer exposed; Z79.4 Long term (current) use of insulin | CPT/HCPCS: 11042; T1013 ==

== ENCOUNTER 2024-10-12 08:09 | Outpatient (CLI) | payer OTHER, SELFPAY | END 2024-10-12 08:10 | disposition home or self-care (01) | PROVIDERS: PCP Nurse Practitioner Family; Visit Provider Physician Assistant | DX: E11.622 Type 2 diabetes mellitus with other skin ulcer (principal); L97.212 Non-pressure chronic ulcer of right calf with fat layer exposed; E11.65 Type 2 diabetes mellitus with hyperglycemia; Z79.4 Long term (current) use of insulin; Z91.190 Patient's noncompliance with other medical treatment and regimen due to financial hardship | CPT/HCPCS: 97597; T1013 ==